=== PATIENT | male | born 1950 | race Caucasian/White ===

== ENCOUNTER 2022-10-04 11:08 | Emergency (ER) | payer MEDICARE, OTHER, SELFPAY ==
[2022-10-04] VITALS (19 sets, daily range): BP systolic 114–150; BP diastolic 65–82; PULSE 77–96; RESP 12–20; TEMP 36.6–37.2; O2SAT 88–100
--- NOTE | ~2022-10-04 | CT_ITS ---
EXAMINATION: CT cervical spine wo con DATE: 10/04/2022 13:04 INDICATION: Neck pain TECHNIQUE: Computed tomography (CT) of the cervical spine was performed without intravenous contrast. The dose-length product (DLP) was 446.28 mGy-cm. Automated exposure control and iterative reconstruc tion technique were employed. COMPARISON: None FINDINGS: Bone alignment is normal. There is no fracture. There is mild to moderate loss of intervert ebral disc space height at C4-5, C5-6, and C6-7. The vertebral body heights are maintained. The odont oid is intact. There is multilevel severe facet and uncovertebral joint osteoarthritis. Prevertebral soft tissues are normal. There is fibrous union of the posterior C1 arch. IMPRESSION: 1. Moderate cervical spondylosis without acute findings. Reviewed, dictated and finalized at location A. [employer]
--- NOTE | ~2022-10-04 | CT_ITS ---
EXAMINATION: CT chest abdomen pelvis wo con DATE: 10/04/2022 13:05 INDICATION: Left-sided chest and abdominal pain after fall TECHNIQUE: Transaxial computed tomographic images of the chest, abdomen, and pelvis were without int ravenous contrast. The dose-length product (DLP) was 1102.94 mGy-cm. Automated exposure control and i terative reconstruction technique were employed. COMPARISON: None FINDINGS: CHEST CT: There are acute minimally displaced posterolateral fractures of the left sixth, seventh, and eighth r ibs. Minimal airspace opacities adjacent to the eighth rib fracture could reflect a small pulmonary c ontusion. There is moderate emphysema. Dependent atelectasis is noted. There are trace pleural effusi ons. No pneumothorax is identified. There is enlargement of the main and central pulmonary arteries, consistent with pulmonary hypertension. Cardiomegaly is noted. There is calcified coronary artery ath erosclerosis. No pathologically enlarged thoracic lymph nodes are identified. ABDOMEN/PELVIS CT: There is a large volume of hemoperitoneum seen in the perisplenic space, the right pericolic gutter, and tracking into the pelvis. Evaluation is limited by the absence of intravenous contrast. The gallb ladder is surgically absent. Within the limitations of noncontrast examination, the liver, spleen, pa ncreas, and adrenal glands are normal. The kidneys are unremarkable. No pathologically enlarged abdom inal or pelvic lymph nodes are identified. There is no free intraperitoneal gas. There is mild gaseou s distention of the ascending colon. There is severe lumbar spondylosis. IMPRESSION: 1. Large volume of hemoperitoneum, site of origin determination limited by the absence of intravenous contrast. Given the left-sided rib fractures and volume of blood in the left upper quadrant, acute s plenic injury is suspected. Further evaluation with contrast-enhanced CT is recommended. These findin gs and recommendations were discussed with Dr. Marcelo Ceron MD in the Emergency Department at 1320 hours on 10/04/2022. Subsequent to that conversation, it was determined that the patient has a c ontrast allergy. The plan communicated to me was for the patient to begin premedication and transfer to a facility for follow-up imaging and definitive treatment. 2. Acute, minimally displaced posterolateral fractures of left sixth, seventh, and eighth ribs. Subtl e adjacent airspace opacity likely reflects mild pulmonary contusion. Reviewed, dictated and finalized at location A. T RELATIONS RECEPTIONIST IMPRESSION: 1. Large volume of hemoperitoneum, site of origin determination limited by the absence of intravenous contrast. Given the left-sided rib fractures and volume of blood in the left upper quadrant, acute splenic injury is suspected. Further evaluation with contrast-enhanced CT is recommended. These findings and recomm endations were discussed with Dr. Marcelo Ceron MD in the Emergency Depar tment at 1320 hours on 10/04/2022. Subsequent to that conversation, it was dete rmined that the patient has a contrast allergy. The plan communicated to me was for the patient to begin premedication and transfer to a facility for follow-u p imaging and definitive treatment. 2. Acute, minimally displaced posterolateral fractures of left sixth, seventh, and eighth ribs. Subtle adjacent airspace opacity likely reflects mild pulmonar y contusion.
--- NOTE | ~2022-10-04 | CT_ITS ---
EXAMINATION: CT brain wo con INDICATION: Headache COMPARISON: None TECHNIQUE: Standard unenhanced head CT. The dose-length product (DLP) was 605.33 mGy-cm. The mA was a djusted according to patient size. Iterative reconstruction technique was employed. FINDINGS: There is no acute intraparenchymal hemorrhage. No evidence of mass lesion. No evidence of a cute infarction. There is mild periventricular and subcortical hypodensity probably related to small vessel ischemic disease. There is mild prominence of the sulci and ventricles related to cerebral atr ophy. Intracranial calcified cerebral atherosclerosis is noted. There are no extra-axial collections. There is no mass effect or midline shift. The orbits and soft tissues are unremarkable. The visualiz ed sinuses and mastoid air cells are well aerated. IMPRESSION: 1. No acute intracranial abnormality. 2. Age related findings. Reviewed, dictated and finalized at location A. PRESSER
[2022-10-04] MEDS: MORPHINE SULFATE (*CRX) 4 MG/ML INJ IV PUSH ×2 (11:53→14:08)
[2022-10-04] MEDS: ONDANSETRON INJ 4 MG/2 ML VIAL IV PUSH (11:53)
[2022-10-04] MEDS: SODIUM CHLORIDE 0.9% IV 1,000 ML 999 ML IV CONT (11:54)
--- NOTE | 2022-10-04 11:55 | ED.FALL ---
HPI - Fall General Chief Complaint: Fall Stated Complaint: weakness\short of breath Time Seen by Provider: 10/04/22 11:17 Source: patient Mode of arrival: EMS Limitations: no limitations History of Present Illness HPI Narrative: patient is a 72-year-old white male, was home Wednesday 4 days ago when he tripped over his Wiener dog Tristan. he was unable to get up from the floor because of pain in his left lateral chest wall. Patient rated his pain as a 7/10. It was worse at home. Three days ago he started vomiting up some black vomit. Planes of pain in his left chest wall and his buttocks where he had been laying. Grandkids broken the house and found the patient and called EMS who brought the patient to the ED. EMS stated his O2 sat on room air was in the 70s to 80s. He was in atrial fib with a rate of 90-100 systolic blood pressure was 140. His his O2 sat came up to normal levels on 4 L of nasal cannula. Patient was covered in feces. He stated he was able to crawl around to get food for the dog. He could not however call for help. His is out of town until after . Said he had a headache but that he always gets those. Denies any neck pain paresthesias or pain or injury to his arms or legs. He is nauseous but denies abdominal pain or back pain. He has not had a cough and he was previously well before he fell. Past medical history: Says he is not on any medications has no medical problems except he is legally blind. Past surgical history: He has had surgeries on his shoulders, right wrist surgery for fracture, cholecystectomy, and appendectomy social history: Patient lives with his who is currently out of town until after . Place fall occurred: home Loss of consciousness: none Context: tripped/slipped Location of injury: chest and pelvis Associated symptoms (after fall): denies, neck pain, numbness, shortness of breath, abdominal pain, hematuria, lightheaded, vertigo and confusion Related Data Allergies Allergy/AdvReac Type Severity Reaction Status Date / Time Echinacea Allergy Intermediate HOT Verified 12/22/16 10:05 ITCHING HIVES meperidine Allergy Intermediate TACHYCARDIA Verified 12/22/16 10:05 oxycodone Allergy Intermediate ITCHING Verified 12/22/16 10:05 RASH HIVES cephalexin Allergy Mild Rash Verified 12/22/16 10:55 alcohol Allergy Unknown Verified 12/22/16 10:05 banana Allergy Unknown Verified 12/16/16 10:37 celery Allergy Unknown Verified 12/16/16 10:37 codeine Allergy Unknown Rash Verified 12/22/16 10:55 cyclobenzaprine Allergy Unknown Verified 12/22/16 10:55 egg Allergy Unknown Verified 12/16/16 10:37 Fish Containing Products Allergy Unknown Verified 12/16/16 10:37 garlic Allergy Unknown Verified 12/16/16 10:37 milk Allergy Unknown Verified 12/22/16 10:55 Milk Containing Products Allergy Unknown Verified 12/16/16 10:37 nut - unspecified Allergy Unknown Verified 12/16/16 10:37 propoxyphene Allergy Unknown Verified 12/22/16 10:55 turkey Allergy Unknown Verified 12/16/16 10:37 wheat Allergy Unknown Verified 12/16/16 10:37 whey Allergy Unknown Verified 12/16/16 10:37 Yeast Allergy Unknown Verified 12/16/16 10:37 tamayo Allergy Unknown Uncoded 11/17/16 19:17 Butter Oil Allergy Unknown Uncoded 12/16/16 10:37 Cantaloupe Allergy Unknown Uncoded 12/16/16 10:37 Chicken Meat Allergy Unknown Uncoded 12/16/16 10:37 hickory flavoring Allergy Unknown Uncoded 11/17/16 19:17 honey dew Allergy Unknown Uncoded 11/17/16 19:17 NK Allergy Unknown Uncoded 04/10/03 12:56 paw paw Allergy Unknown Uncoded 11/17/16 19:17 root beer Allergy Unknown Uncoded 11/17/16 19:17 SKELETALMUSCLE Allergy Unknown Uncoded 11/17/16 19:17 Review of Systems Review of Systems: All systems reviewed & are unremarkable except as noted in HPI and below Constitutional: Constitutional: Reports as per HPI, Denies fatigue, Denies fever(s) and Denies weakness Eyes: Eyes: Reports as per HPI and Denies ch
[2022-10-04 11:56] LABS: Hematocrit 26.9 % (37.0-46.0); Hemoglobin 8.8 g/dL (12.4-15.3); Mean Corpuscular HGB Conc 32.7 g/dL (32.0-36.0); Mean Corpuscular Hemoglobin 31.8 pg (27.0-31.0); Mean Corpuscular Volume 97.1 fL (78.0-102.0); Mean Platelet Volume 11.8 fl (8.7-11.0); Platelet Count Result 189 K/mm3 (150-420); Red Blood Count 2.77 M/mm3 (4.70-6.10); Red Cell Distribution Width 13.2 % (11.6-14.4); White Blood Count 16.7 K/mm3 (4.8-10.8)
[2022-10-04 12:16] LABS: INR 1.1; Partial Thromboplastin Time 21.1 SEC (23.90-30.70); Prothrombin Time 11.9 Seconds (9.50-12.10)
[2022-10-04 12:30] LABS: Alanine Aminotransferase 58 U/L (16-63); Albumin Level 3.7 g/dL (3.4-5.0); Alkaline Phosphatase 69 U/L (46-116); Anion Gap 7 mmol/L (8-16); Aspartate Amino Transferase 100 U/L (15-37); Bilirubin,Total 0.8 mg/dL (0.00-1.00); Blood Urea Nitrogen 67 mg/dL (7-18); Calcium 9.2 mg/dL (8.5-10.1); Carbon Dioxide 32 mmol/L (21-32); Chloride 108 mmol/L (98-108); Creatine Kinase 2339 U/L (39-308); Estimated CRCL calculation 54 ml/min; Estimated Glomerular Filt Rate > 60; Glucose 119 mg/dL (70-99); Magnesium 2.5 mg/dL (1.8-2.4); Osmolality Calculated 324 mOsm/kg (285-295); Potassium 3.9 mmol/L (3.5-5.1); Sodium 147 mmol/L (136-145); Total Protein 7.3 g/dL (6.4-8.2)
[2022-10-04 12:31] LABS: Influenza A QL RT-PCR Negative (Negative); Influenza B QL RT-PCR Negative (Negative); RSV RNA, RT-PCR Negative (Negative); SARS-CoV-2 RNA PCR Negative (Negative); Troponin I 162.8 ng/L (0.00-60.4)
--- NOTE | 2022-10-04 12:39 | ECG_ITS ---
Measurements Intervals [place] Rate: 90 P: 69 [place]: 162 QRS: -28 QRSD: 97 T: 60 QT: 379 QTc: 465 Interpretive Statements SINUS RHYTHM WITH OCCASIONAL VENTRICULAR PREMATURE COMPLEXES BORDERLINE LEFT AXIS DEVIATION [QRS AXIS < -20] NO PREVIOUS ECG AVAILABLE FOR COMPARISON Electronically Signed On 10-04-2022 14:54:11 FULL STACK DEVELOPER by Zeinab Barnes M.D.
--- NOTE | 2022-10-04 12:44 | PC.NURSE ---
pt to xray per stretcher.
[2022-10-04] MEDS: SODIUM CHLORIDE 0.9% IV 1,000 ML 125 ML IV CONT (13:12)
--- NOTE | 2022-10-04 13:13 | PC.NURSE ---
pt return to room, call proctor in reach.
--- NOTE | 2022-10-04 14:44 | PC.NURSE ---
1420 PT LOADED TO EMS COT, NO BLOOD NOTED IN ADULT BRIEF. PT CLEAN AND DRY. PT ALERT AND STABLE AT TIME OF DEPARTURE. FAMILY INFORMED OF ALL TRANSFER INFORMATION NEEDED. PT DEPARTED WITH ALL PERSONAL BELONGINGS.
== END 2022-10-04 14:30 | disposition short-term general hospital (02) ==
PROVIDERS: Emergency Provider Emergency Medicine; PCP Internal Medicine
DX: I21.4 Non-ST elevation (NSTEMI) myocardial infarction (principal); S22.42XA Multiple fractures of ribs, left side, initial encounter for closed fracture; K66.1 Hemoperitoneum; D64.9 Anemia, unspecified; M62.82 Rhabdomyolysis; F17.200 Nicotine dependence, unspecified, uncomplicated; Z20.822 Contact with and (suspected) exposure to COVID-19; W01.0XXA Fall on same level from slipping, tripping and stumbling without subsequent striking against object, initial encounter; Y92.009 Unspecified place in unspecified non-institutional (private) residence as the place of occurrence of the external cause
CPT/HCPCS: 36415; 70450; 71250; 72125; 74176; 80053; 82550; 83735; 84484; 85027; 85610; 85730; 87637; 93005; 96361; 96374; 96375; 96376; 99285; J2270; J2405; J7030

== ENCOUNTER 2022-10-09 14:17 | Inpatient (IN) | payer MEDICARE, OTHER, SELFPAY ==
[2022-10-09 14:20] VITALS: BP 137/71; PULSE 73; RESP 18; TEMP 36.2; O2SAT 97
--- NOTE | 2022-10-09 14:20 | ADMGEN ---
This patient, Donato Serrano, was admitted to 2nd Floor Room 209-1 as a skilled swing bed patient. Patient/family oriented to hospital policies and general routines including ID bracelet, bed and alarms, visiting hours, pain management, procedures, bathroom and other care routines, personal items, smoking policy, room service/diet, and visiting hours. Information on how to activate the Rapid Response Team has been discussed. Patient/Family are encouraged to report perceived risks to care and to ask questions if they do not understand what they are told or what they should do.
[2022-10-09 14:40] VITALS: O2SAT 97
[2022-10-09 14:43] VITALS: BMI 28.9
[2022-10-09] MEDS: ACETAMINOPHEN 325 MG TABLET 650 MG PO (16:48)
[2022-10-09] MEDS: GABAPENTIN 100 MG CAPSULE PO (18:01)
[2022-10-09] MEDS: oxyCODONE HCL (*CRX) 5 MG TAB IR 10 MG PO (18:01)
[2022-10-09] MEDS: MELATONIN 3 MG TABLET PO (20:46)
[2022-10-09] MEDS: guaiFENesin 12 HR 600 MG TABCR PO (20:46)
[2022-10-09] MEDS: METOPROLOL TARTRATE 25 MG TABLET PO (20:47)
[2022-10-09] MEDS: ACETAMINOPHEN 500 MG TABLET 1000 MG PO (20:47)
[2022-10-09 23:44] VITALS: BP 147/75; PULSE 88; RESP 16; TEMP 36.3; O2SAT 92
[2022-10-10] VITALS (7 sets, daily range): BP systolic 130–144; BP diastolic 63–77; PULSE 78–84; RESP 16–18; TEMP 36.2–36.4; O2SAT 94–96
[2022-10-10] MEDS: oxyCODONE HCL (*CRX) 5 MG TAB IR 10 MG PO ×4 (02:01→22:19)
--- NOTE | 2022-10-10 03:02 | PC.NURSE ---
Pt asleep and oxygen in place at this time. No signs of discomfort noted.
--- NOTE | 2022-10-10 05:00 | PC.NURSE ---
Pt asleep and no signs of discomfort noted.
--- NOTE | 2022-10-10 06:05 | PC.NURSE ---
Pt voided 325 ml of medium jerry urine in the urinal. Pt doesnt voice any c/o discomfort.
[2022-10-10] MEDS: LIDOCAINE 5% PATCH 2 PATCH TOPICAL (09:13)
[2022-10-10] MEDS: ATORVASTATIN 10 MG TABLET 20 MG PO (09:14)
[2022-10-10] MEDS: METOPROLOL TARTRATE 25 MG TABLET PO ×2 (09:14→20:05)
[2022-10-10] MEDS: FERROUS SULFATE 324 MG TABLET PO (09:15)
[2022-10-10] MEDS: PANTOPRAZOLE 40 MG TABLET PO (09:15)
[2022-10-10] MEDS: MULTIVITAMINS THERAPEUTIC TAB (*BKC) 1 TABLET PO (09:15)
[2022-10-10] MEDS: GABAPENTIN 100 MG CAPSULE PO ×3 (09:15→17:01)
[2022-10-10] MEDS: guaiFENesin 12 HR 600 MG TABCR PO ×2 (09:15→20:06)
[2022-10-10] MEDS: ACETAMINOPHEN 500 MG TABLET 1000 MG PO ×3 (09:18→20:06)
--- NOTE | 2022-10-10 12:18 | PM.IMHP ---
H&P: HPI History of Present Illness Date/Time: 10/10/22 12:18 Chief Complaint: Rehab, Weakness , fall Narrative: patient presents for rehab [facility] is a 72-year-old post rib fractures splenic laceration status post fall. Event occurred on 09/30 when he tripped over his dog. Patient later tripped again and then laid on his back as he felt short of breath and diaphoretic Cate on the floor for an unknown amount of time until his family found him and was brought to the hospital patient then went to sleep for higher level care there was never loss of consciousness patient was treated was found have a non-STEMI, weakness he has a past medical history major allergies appendectomy, 5 laminectomy lower back cholecystectomy, ERCP x2 implants clips in the right groin from surgery after a scratch from a cat rotation or cough on both shoulders, tonsillectomy. Patient also has according to notes pulmonary contusion. On the right than the left mildly displaced fracture of the left posterior 6th and 8th through 8th rib. GI saw patient while he was outlaying facility patient has been cleared to return so he can start PT and OT for strength Review of Systems Review of Systems: weakness, allergies, swelling feet All systems reviewed & are unremarkable except as noted in HPI and below PMFSH Past Medical History Medical History (Updated 10/11/22 @ 12:36 by Michael Avilez NP) Anemia Malnutrition Rib fracture Splenic laceration Weakness Family History Family History Mother Family history of malignant neoplasm of gastrointestinal tract Family history of malignant neoplasm of breast in first degree relative Other Family history of cardiovascular disease Hypertension Social History Social History Smoking packs per day: 1 Smoking cigarettes per day: 20.0 Years smoked: 40 Smoking pack-years: 40.00 Smoking status: Current every day smoker Tobacco type: cigarettes Alcohol intake: never Substance use: never Lack of Transportation: No Lack of Food: Never True Current Housing: I Have Housing Concerned About Future Housing: No Difficulty Paying Gas/Electric Bills: No Difficulty Paying for Meds: No Currently Unemployed: No Education: High School Diploma/GED Difficulty w/ Childcare or Family Care: No Spiritual care concerns: No Meds Home Medications and Allergies Home Medications Medication Instructions Recorded Confirmed Type acetaminophen 500 mg tablet 1,000 mg PO TID 10/09/22 10/09/22 History atorvastatin 20 mg tablet (Lipitor) 20 mg PO DAILY 10/09/22 10/09/22 History ferrous sulfate 325 mg (65 mg 325 mg PO EVERY OTHER DAY 10/09/22 10/09/22 History iron) tablet gabapentin 100 mg capsule 100 mg PO TID 10/09/22 10/09/22 History guaifenesin 600 mg tablet, 600 mg PO BID 10/09/22 10/09/22 History extended release 12 hr (Mucus Relief ER) ipratropium 0.5 mg-albuterol 3 mg 0.5 - 2.5 ml inhalation Q6H PRN 10/09/22 10/09/22 History (2.5 mg base)/3 mL nebulization Shortness Of Breath Or Wheezing soln lidocaine 5 % topical patch 2 patch topical DAILY 10/09/22 10/09/22 History melatonin 3 mg tablet 1 mg PO QHS 10/09/22 10/09/22 History metoprolol tartrate 25 mg PO BID 10/09/22 10/09/22 History multivitamin 1 tablet PO DAILY 10/09/22 10/09/22 History oxycodone 10 mg tablet 10 mg PO Q4H PRN Pain 10/09/22 10/09/22 History pantoprazole 40 mg tablet,delayed 40 mg PO DAILY 10/09/22 10/09/22 History release (Protonix) polyethylene glycol 3350 17 gram 17 g PO DAILY PRN Constipation 10/09/22 10/09/22 History oral powder packet (Miralax) polyvinyl alcohol 1.4 % eye drops 1 drp EACH EYE Q4H PRN Dry Eyes 10/09/22 10/09/22 History sodium chloride 0.65 % nasal mist 2 spray intranasal DIRECTED PRN 10/09/22 10/09/22 History Dry Nasal Passages Allergies Boris
[2022-10-10 13:39] LABS: Add Urine Microscopic? YES; Appearance Urine Clear (Clear); Bilirubin Urine Negative (Negative); Blood Urine 3+ (Negative); Color Urine Yellow (Yellow); Glucose Urine UA Negative (Negative); Ketones Urine Negative (Negative); Leukocyte Esterase Ur Negative (Negative); Nitrate Urine Positive (Negative); Protein Urine Trace (Negative); Specific Grav Ur <= 1.005 (1.010-1.020); Urobilinogen Urine 0.2 mg/dL (0.2-1.0)
[2022-10-10 13:44] LABS: WBC Urine None seen /hpf (0-3)
[2022-10-10 13:45] LABS: Bacteria Urine 2+ /hpf
--- NOTE | 2022-10-10 18:52 | PC.NURSE ---
1400 here and claims he is more yellow than he has been since he had a gal bladder removed and then when he blockage/trouble with pancreases. john nazario np aware and talks with her.
[2022-10-10] MEDS: CIPROFLOXACIN 500 MG TAB PO (20:05)
[2022-10-10] MEDS: MELATONIN 3 MG TABLET PO (20:05)
[2022-10-11] VITALS (10 sets, daily range): BP systolic 133–144; BP diastolic 63–70; PULSE 76–82; RESP 16–20; TEMP 36–36.5; O2SAT 95–97
[2022-10-11 05:35] LABS: Basophils Absolute Auto 0.03 K/mm3 (0.00-0.10); Basophils Percent Auto 0.3 % (0.0-1.0); Eosinophils Absolute Auto 0.22 K/mm3 (0.02-0.50); Eosinophils Percent Auto 2.2 % (1.0-6.0); Hematocrit 25.4 % (37.0-46.0); Hemoglobin 8.3 g/dL (12.4-15.3); Immature Granulocyte Absolute 0.16 K/mm3 (0.00-0.00); Immature Granulocyte Percent A 1.6 % (0.0-0.0); Lymphocytes Absolute Auto 1.41 K/mm3 (1.10-4.50); Lymphocytes Percent Auto 13.8 % (18.0-42.0); Mean Corpuscular HGB Conc 32.7 g/dL (32.0-36.0); Mean Corpuscular Hemoglobin 31.8 pg (27.0-31.0); Mean Corpuscular Volume 97.3 fL (78.0-102.0); Mean Platelet Volume 10.1 fl (8.7-11.0); Monocytes Absolute Auto 1.24 K/mm3 (0.10-0.90); Monocytes Percent Auto 12.2 % (2.0-11.0); Neutrophils Absolute Auto 7.1 K/mm3 (1.7-7.2); Neutrophils Percent Auto 69.9 % (50.0-70.0); Platelet Count Result 319 K/mm3 (150-420); Red Blood Count 2.61 M/mm3 (4.70-6.10); Red Cell Distribution Width 14.6 % (11.6-14.4); White Blood Count 10.2 K/mm3 (4.8-10.8)
[2022-10-11 05:48] LABS: Alanine Aminotransferase 80 U/L (16-63); Albumin Level 2.1 g/dL (3.4-5.0); Alkaline Phosphatase 79 U/L (46-116); Anion Gap 2 mmol/L (8-16); Aspartate Amino Transferase 125 U/L (15-37); Blood Urea Nitrogen 13 mg/dL (7-18); Calcium 7.4 mg/dL (8.5-10.1); Carbon Dioxide 34 mmol/L (21-32); Chloride 102 mmol/L (98-108); Estimated CRCL calculation 73 ml/min; Estimated Glomerular Filt Rate > 60; Glucose 108 mg/dL (70-99); Osmolality Calculated 287 mOsm/kg (285-295); Potassium 2.9 mmol/L (3.5-5.1); Sodium 138 mmol/L (136-145); Total Protein 5.6 g/dL (6.4-8.2)
[2022-10-11] MEDS: oxyCODONE HCL (*CRX) 5 MG TAB IR 10 MG PO (05:58)
--- NOTE | 2022-10-11 06:52 | PC.NURSE ---
report to LOLITA mendieta. no questions or concerns.
[2022-10-11] MEDS: MULTIVITAMINS THERAPEUTIC TAB (*BKC) 1 TABLET PO (09:52)
[2022-10-11] MEDS: CIPROFLOXACIN 500 MG TAB PO ×2 (09:52→20:15)
[2022-10-11] MEDS: ATORVASTATIN 10 MG TABLET 20 MG PO (09:52)
[2022-10-11] MEDS: PANTOPRAZOLE 40 MG TABLET PO (09:52)
[2022-10-11] MEDS: guaiFENesin 12 HR 600 MG TABCR PO ×2 (09:52→20:15)
[2022-10-11] MEDS: METOPROLOL TARTRATE 25 MG TABLET PO ×2 (09:52→20:15)
[2022-10-11] MEDS: LIDOCAINE 5% PATCH 2 PATCH TOPICAL (09:52)
[2022-10-11] MEDS: GABAPENTIN 100 MG CAPSULE PO ×3 (09:52→16:53)
[2022-10-11] MEDS: ACETAMINOPHEN 500 MG TABLET 1000 MG PO ×2 (09:56→12:53)
[2022-10-11] MEDS: POTASSIUM CHLORIDE 20 MEQ TABLET 40 MEQ PO ×2 (10:26→16:53)
[2022-10-11] MEDS: KETOROLAC 10 MG TABLET PO (14:38)
[2022-10-11] MEDS: MELATONIN 3 MG TABLET PO (20:15)
[2022-10-11] MEDS: oxyCODONE HCL (*CRX) 5 MG TAB IR PO (20:16)
[2022-10-11] MEDS: IPRATROPIUM 0.5 MG/ALBUTEROL SULFATE 2.5 MG AMPUL.NEB 3 ML INHALATION (20:46)
[2022-10-12] MEDS: oxyCODONE HCL (*CRX) 5 MG TAB IR PO ×3 (03:43→19:12)
[2022-10-12 08:00] VITALS: BP 134/66; PULSE 105; RESP 17; TEMP 36.2; O2SAT 93
[2022-10-12] MEDS: LIDOCAINE 5% PATCH 2 PATCH TOPICAL (09:05)
[2022-10-12 09:06] VITALS: PULSE 105
[2022-10-12] MEDS: ATORVASTATIN 10 MG TABLET 20 MG PO (09:06)
[2022-10-12] MEDS: POTASSIUM CHLORIDE 20 MEQ TABLET 40 MEQ PO ×2 (09:06→16:35)
[2022-10-12] MEDS: MULTIVITAMINS THERAPEUTIC TAB (*BKC) 1 TABLET PO (09:06)
[2022-10-12] MEDS: guaiFENesin 12 HR 600 MG TABCR PO ×2 (09:06→20:58)
[2022-10-12] MEDS: KETOROLAC 10 MG TABLET PO ×3 (09:06→22:39)
[2022-10-12] MEDS: METOPROLOL TARTRATE 25 MG TABLET PO ×2 (09:06→20:46)
[2022-10-12] MEDS: CIPROFLOXACIN 500 MG TAB PO ×2 (09:07→20:46)
[2022-10-12] MEDS: FERROUS SULFATE 324 MG TABLET PO (09:07)
[2022-10-12] MEDS: PANTOPRAZOLE 40 MG TABLET PO (09:07)
[2022-10-12] MEDS: GABAPENTIN 100 MG CAPSULE PO ×3 (09:07→16:35)
[2022-10-12 16:30] VITALS: BP 119/65; PULSE 87; RESP 18; TEMP 36.6; O2SAT 92
[2022-10-12 20:00] VITALS: PULSE 87; RESP 18; O2SAT 92
[2022-10-12 20:46] VITALS: PULSE 86
[2022-10-12] MEDS: MELATONIN 3 MG TABLET PO (20:46)
[2022-10-13] VITALS (8 sets, daily range): BP systolic 125–135; BP diastolic 60–81; PULSE 77–86; RESP 17–20; TEMP 36.4–36.6; O2SAT 93–97
[2022-10-13] MEDS: oxyCODONE HCL (*CRX) 5 MG TAB IR PO ×4 (06:03→21:05)
[2022-10-13] MEDS: POTASSIUM CHLORIDE 20 MEQ TABLET 40 MEQ PO ×2 (07:57→16:45)
[2022-10-13] MEDS: ATORVASTATIN 10 MG TABLET 20 MG PO (08:36)
[2022-10-13] MEDS: GABAPENTIN 100 MG CAPSULE PO ×3 (08:36→16:45)
[2022-10-13] MEDS: MULTIVITAMINS THERAPEUTIC TAB (*BKC) 1 TABLET PO (08:36)
[2022-10-13] MEDS: CIPROFLOXACIN 500 MG TAB PO ×2 (08:36→20:13)
[2022-10-13] MEDS: PANTOPRAZOLE 40 MG TABLET PO (08:37)
[2022-10-13] MEDS: guaiFENesin 12 HR 600 MG TABCR PO ×2 (08:37→20:13)
[2022-10-13] MEDS: METOPROLOL TARTRATE 25 MG TABLET PO ×2 (08:37→20:16)
[2022-10-13] MEDS: LIDOCAINE 5% PATCH 2 PATCH TOPICAL (08:37)
[2022-10-13] MEDS: KETOROLAC 10 MG TABLET PO ×2 (08:48→20:11)
--- NOTE | 2022-10-13 10:05 | PC.NURSE ---
Pt assisted c soapy sponge bath, ersting in chair, states he is tired from walking halls c PT. Pt repositioned in chair, mepilex foam dressing in place, call proctor at pt side. Oxycodone given per pt request for increased pain in his ribs from walking.
--- NOTE | 2022-10-13 10:38 | PC.NURSE ---
Pt sitting in chair, feet elevated, pt given a rolled towel and instructed on splinting Lt rib cage area when coughing. Pt reports this technique helps c pain. Call proctor at pt side.
--- NOTE | 2022-10-13 12:32 | PC.NURSE ---
Patient requested neb treatment. RT notified
[2022-10-13] MEDS: IPRATROPIUM 0.5 MG/ALBUTEROL SULFATE 2.5 MG AMPUL.NEB 3 ML INHALATION (12:46)
[2022-10-13] MEDS: MELATONIN 3 MG TABLET PO (20:12)
--- NOTE | 2022-10-13 21:26 | PC.NURSE ---
Pt assisted w/ambulating to bathroom from chair to the bathroom via walker, gait belt, and standby assist. Pt had a large loose, but mostly liquid bm that was brown in color. Pt assisted w/cleaning his behind per his request and then barrier spray applied to pt's coccyx. Pt then brought to bed, and was adjusted for comfort. Pt ambulated very well and required very little assistance w/balance. Dentures removed and placed in a cup for the night. Call light placed w/in reach. Side railsx3 and bed in lowest position for pt safety.
[2022-10-14 08:00] VITALS: BP 112/57; PULSE 94; RESP 19; TEMP 36.4; O2SAT 94
[2022-10-14 08:31] VITALS: PULSE 94
[2022-10-14] MEDS: LIDOCAINE 5% PATCH 2 PATCH TOPICAL (08:31)
[2022-10-14] MEDS: PANTOPRAZOLE 40 MG TABLET PO (08:31)
[2022-10-14] MEDS: ATORVASTATIN 10 MG TABLET 20 MG PO (08:31)
[2022-10-14] MEDS: guaiFENesin 12 HR 600 MG TABCR PO ×2 (08:31→20:38)
[2022-10-14] MEDS: METOPROLOL TARTRATE 25 MG TABLET PO ×2 (08:31→20:39)
[2022-10-14] MEDS: MULTIVITAMINS THERAPEUTIC TAB (*BKC) 1 TABLET PO (08:31)
[2022-10-14] MEDS: POTASSIUM CHLORIDE 20 MEQ TABLET 40 MEQ PO ×2 (08:31→17:26)
[2022-10-14] MEDS: CIPROFLOXACIN 500 MG TAB PO ×2 (08:32→20:38)
[2022-10-14] MEDS: GABAPENTIN 100 MG CAPSULE PO ×3 (08:32→17:26)
[2022-10-14] MEDS: FERROUS SULFATE 324 MG TABLET PO (08:32)
[2022-10-14] MEDS: KETOROLAC 10 MG TABLET PO ×2 (08:32→18:39)
[2022-10-14] MEDS: oxyCODONE HCL (*CRX) 5 MG TAB IR PO ×2 (12:33→20:38)
[2022-10-14 16:00] VITALS: BP 122/62; PULSE 88; RESP 17; TEMP 36.6; O2SAT 93
--- NOTE | 2022-10-14 18:29 | PC.NURSE ---
Patient assisted from bathroom to bed. HOB and knees elevated per patient request. Urinal emptied. Call light and belongings within reach.
[2022-10-14] MEDS: MELATONIN 3 MG TABLET PO (20:38)
[2022-10-14] MEDS: traZODone HCL 50 MG TABLET PO (20:38)
[2022-10-14 20:39] VITALS: PULSE 73
[2022-10-14 23:07] VITALS: BP 135/69; PULSE 73; RESP 15; TEMP 36.4; O2SAT 95
[2022-10-15] MEDS: oxyCODONE HCL (*CRX) 5 MG TAB IR PO ×3 (05:47→17:47)
[2022-10-15 07:34] VITALS: BP 128/65; PULSE 75; RESP 16; TEMP 36.6; O2SAT 92
[2022-10-15] MEDS: LIDOCAINE 5% PATCH 2 PATCH TOPICAL (08:33)
[2022-10-15] MEDS: MULTIVITAMINS THERAPEUTIC TAB (*BKC) 1 TABLET PO (08:34)
[2022-10-15 08:35] VITALS: PULSE 75
[2022-10-15] MEDS: POTASSIUM CHLORIDE 20 MEQ TABLET 40 MEQ PO ×2 (08:35→17:00)
[2022-10-15] MEDS: guaiFENesin 12 HR 600 MG TABCR PO ×2 (08:35→21:22)
[2022-10-15] MEDS: GABAPENTIN 100 MG CAPSULE PO ×3 (08:35→17:00)
[2022-10-15] MEDS: METOPROLOL TARTRATE 25 MG TABLET PO ×2 (08:35→21:21)
[2022-10-15] MEDS: ATORVASTATIN 10 MG TABLET 20 MG PO (08:36)
[2022-10-15] MEDS: KETOROLAC 10 MG TABLET PO ×2 (08:36→21:21)
[2022-10-15] MEDS: CIPROFLOXACIN 500 MG TAB PO ×2 (08:38→21:22)
[2022-10-15] MEDS: PANTOPRAZOLE 40 MG TABLET PO (08:38)
[2022-10-15 16:00] VITALS: BP 147/62; PULSE 78; RESP 16; TEMP 36.5; O2SAT 96
[2022-10-15 20:00] VITALS: PULSE 78; RESP 16; O2SAT 96
[2022-10-15 21:21] VITALS: PULSE 78
[2022-10-15] MEDS: MELATONIN 3 MG TABLET PO (21:22)
[2022-10-15] MEDS: traZODone HCL 50 MG TABLET PO (21:22)
[2022-10-15 21:26] LABS: Glucose Point of Care 95 mg/dl (65-105)
[2022-10-15 23:50] VITALS: BP 131/68; PULSE 78; RESP 18; TEMP 36.5; O2SAT 96
[2022-10-16 07:55] VITALS: BP 123/59; PULSE 76; RESP 20; TEMP 36.3; O2SAT 93
[2022-10-16 07:56] VITALS: RESP 20; O2SAT 93
[2022-10-16] MEDS: POTASSIUM CHLORIDE 20 MEQ TABLET 40 MEQ PO ×2 (08:04→15:56)
[2022-10-16] MEDS: ATORVASTATIN 10 MG TABLET 20 MG PO (08:04)
[2022-10-16] MEDS: PANTOPRAZOLE 40 MG TABLET PO (08:04)
[2022-10-16] MEDS: CIPROFLOXACIN 500 MG TAB PO (08:04)
[2022-10-16 08:05] VITALS: PULSE 83
[2022-10-16] MEDS: guaiFENesin 12 HR 600 MG TABCR PO (08:05)
[2022-10-16] MEDS: GABAPENTIN 100 MG CAPSULE PO ×3 (08:05→15:56)
[2022-10-16] MEDS: METOPROLOL TARTRATE 25 MG TABLET PO (08:05)
[2022-10-16] MEDS: FERROUS SULFATE 324 MG TABLET PO (08:05)
[2022-10-16] MEDS: MULTIVITAMINS THERAPEUTIC TAB (*BKC) 1 TABLET PO (08:05)
[2022-10-16] MEDS: LIDOCAINE 5% PATCH 2 PATCH TOPICAL (08:06)
[2022-10-16] MEDS: oxyCODONE HCL (*CRX) 5 MG TAB IR PO (09:09)
--- NOTE | 2022-10-16 12:57 | PM.DS ---
DS: Admitting Diagnosis Discharge Date 10/16/2022 Admitting Diagnosis rehab, weakness, fall DS: Discharge Diagnosis Discharge Diagnosis (1) Non-STEMI (non-ST elevated myocardial infarction): Code(s): I21.4 - Non-ST elevation (NSTEMI) myocardial infarction Status: Acute Assessment and Plan: Resolved at [facility] no pericardial effusion (2) Splenic laceration: Code(s): S36.039A - Unspecified laceration of spleen, initial encounter Status: Acute Assessment and Plan: resolved at [facility] and he has been cleared (3) Rib fracture: Code(s): S22.39XA - Fracture of one rib, unspecified side, initial encounter for closed fracture Status: Acute Assessment and Plan: Pain control prn medication healing (4) Malnutrition: Code(s): E46 - Unspecified protein-calorie malnutrition Status: Acute Assessment and Plan: Uspecified Caloric malnutriiton protein major allergies (5) Weakness: Code(s): R53.1 - Weakness Status: Acute Assessment and Plan: PT/OT Evaluate and treat fall precaution (6) Anemia: Code(s): D64.9 - Anemia, unspecified Status: Acute Assessment and Plan: will monitor transfuse for hgb below 7 DS: Summary Hospital Course Hospital Course: patient presents for rehab from [facility] is a 72-year-old post rib fractures splenic laceration status post fall.? Event occurred on 09/30 when he tripped over his dog.? Patient later tripped again and then laid on his back as he felt short of breath and diaphoretic Cate on the floor for an unknown amount of time until his family found him and was brought to the hospital . patient was transferred to higher level care there was never loss of consciousness patient was treated was found have a non-STEMI, weakness he has a past medical history major allergies appendectomy, 5 laminectomy lower back cholecystectomy, ERCP x2 implants clips in the right groin from surgery tonsillectomy.? Patient also has according to notes pulmonary contusion.? On the right than the left mildly displaced fracture of the left posterior 6th and 8th through 8th rib.? GI was consulted while patient was hospitalized at the [facility] facility . patient is being discharged home with self-care patient able to ambulate 140 ft with standby assist. Discharge instructions reviewed with patient, as well as provided in writing per nursing staff. The instructions also include specific and strict return/GO TO THE ER as well as f/u information. All questions have been answered, and the patient and/or family deny any further questions with discharge and discharge plan. Time Spent with Patient Time attestation: Total time spent providing and/or coordinating discharge services: Exam Narrative: GENERAL pale -appearing, well-nourished, and in no acute distress. HEAD:Normocephalic, atraumatic. EYES: PERRLA ENT: Nares clear, epistaxis. Mucous membranes moist. CHEST: Clear to auscultation. No respiratory distress. HEART: Regular rate and rhythm. Normal peripheral pulses. ABDOMEN: Soft, nontender, nondistended, normal active bowel sounds. EXTREMITIES: Normal range of motion. 2+ edema. SKIN: Warm, dry, no rash. NEURO: No focal deficits. Alert and oriented x3. DS: Data Data Completed and Pending Labs on day of discharge: Labs from last 24 hours 10/15/22 21:21 POC Capillary Glucose 95 Discharge Plan Discharge Attending physician on discharge: Roverto Leo Discharging Clinician: Duncan Tanner Anticipated Discharge Date/Time: 10/16/22 12:46 Patient Disposition: Home, Self-Care Activity: as tolerated Diet: heart healthy Discharge Instructions: Follow-up with provided within 1 week. Take all medications as ordered. If condition worsens contact provider. You will need to follow up with your primary care physician concerning your lower leg
[2022-10-16] MEDS: KETOROLAC 10 MG TABLET PO (13:30)
[2022-10-16 16:00] VITALS: BP 124/56; PULSE 66; RESP 16; TEMP 36.2; O2SAT 98
--- NOTE | 2022-10-16 16:04 | PC.NURSE ---
is here to pick pt up, she wants him to eat first, requests dinner tray be brought early, dietary notified and will bring tray at 1630, pt and given d/c instructions and hard copy of lasix/tramadol scripts, will carry belongings down to car
--- NOTE | 2022-10-22 10:47 | PC.NURSE ---
Unable to contact for discharge call back.
== END 2022-10-16 16:50 | disposition home or self-care (01) | DRG 947 ==
PROVIDERS: Nurse Practitioner Family; Admitting Provider Internal Medicine; PCP Internal Medicine; Visit Provider Internal Medicine
DX: R53.1 Weakness (principal); I21.4 Non-ST elevation (NSTEMI) myocardial infarction; E46 Unspecified protein-calorie malnutrition; S36.039D Unspecified laceration of spleen, subsequent encounter; S22.42XD Multiple fractures of ribs, left side, subsequent encounter for fracture with routine healing; S27.321D Contusion of lung, unilateral, subsequent encounter; W01.0XXD Fall on same level from slipping, tripping and stumbling without subsequent striking against object, subsequent encounter; D64.9 Anemia, unspecified; F17.210 Nicotine dependence, cigarettes, uncomplicated; Z90.49 Acquired absence of other specified parts of digestive tract
CPT/HCPCS: 36415; 80053; 81001; 82948; 85025; 94640; 97110; 97161; 97165; 97530; 97535; A9270

== ENCOUNTER 2022-10-25 18:44 | Emergency (ER) | payer MEDICARE, OTHER, SELFPAY ==
--- NOTE | ~2022-10-25 | CT_ITS ---
EXAMINATION: CT abdomen pelvis w con DATE: 10/25/2022 20:39 INDICATION: LOWER ABD PAIN WITH LIQUID STOOL X 3 WEEKS. TECHNIQUE: Computed tomography (CT) of the abdomen and pelvis was performed with 100 mL Omnipaque-350 intravenous contrast. Automated exposure control and iterative reconstruction technique were employe d. The dose-length product was 655.10 mGy-cm. COMPARISON: 10/04/2022. FINDINGS: Lower thorax: Calcified pulmonary granulomas. Coronary artery calcification. Small left pleural effus ion. Liver: Normal. Biliary/Gallbladder: Gallbladder is absent. Pneumobilia. Pancreas: Dilated pancreatic duct with ductal gas. Spleen: Subacute splenic laceration. Interval resolution of the perisplenic blood. Adrenals:No mass. Kidneys: No mass, stone, or hydronephrosis. GI tract: No small or large bowel dilation. Long segment of severe small bowel wall edema in the deep pelvis with surrounding inflammatory change. Suggestion of wall breakdown (image [id number]). Adjacent 4.6 x 3.4 x 4.4 cm fluid collection containing hyperdense layering material, closely applied to the e dematous loop of bowel and the distal sigmoid. Appendix not visualized. Diverticulosis. Mesentery/Peritoneum: Diffuse mesenteric edema. Retroperitoneum: No mass. Atherosclerotic abdominal aortic and/or arterial calcifications. Pelvis: Inflammatory change of the bladder wall likely secondary to the adjacent small bowel process. Soft Tissues: Body wall edema. Small uncomplicated helical and bilateral inguinal fat-containing andrea ias. Bones: No acute osseous finding. Multiple subacute rib fractures. IMPRESSION: 1. Long segment severe small bowel wall edema involving a loop of small bowel in the deep pelvis, whi ch may be infectious, inflammatory, or ischemic, with findings concerning for wall breakdown and an a djacent 4.6 cm abscess in the deep pelvis. 2. Small left pleural effusion. 3. Additional chronic and incidental findings detailed above. Reviewed, dictated and finalized at location K. F OF FIELD OPERATIONS IMPRESSION: 1. Long segment severe small bowel wall edema involving a loop of small bowel i n the deep pelvis, which may be infectious, inflammatory, or ischemic, with fin dings concerning for wall breakdown and an adjacent 4.6 cm abscess in the deep pelvis. 2. Small left pleural effusion. 3. Additional chronic and incidental findings detailed above.
[2022-10-25 18:52] VITALS: BP 145/71; PULSE 82; RESP 18; TEMP 36.7; O2SAT 97
--- NOTE | 2022-10-25 19:03 | ED.ABDPAIN ---
HPI - Abdominal Pain General Chief Complaint: Abdominal Pain Stated Complaint: pain lower belly Time Seen by Provider: 10/25/22 18:59 History of Present Illness HPI narrative: 72-year-old male patient with status post the left rib fracture, spleen laceration, and a non-STEMI diagnosed on 10/04/2022 went through a long inpatient hospitalization and eventual rehab up until 10 days ago when he returned home, returns this evening with complaints of lower abdominal pain and liquid stools. He has had pain for several days and states that he feels full and does not feel like he is going enough. No blood has been noted in the stools. The patient was on oxycodone up until 10 days ago and since his discharge home he has been taking Toradol. He denies any associated nausea or vomiting. He states that he has been passing gas frequently. Denies any fever or chills. Denies any difficulty breathing. Denies any chest pain. Per the patient is trying to do some physical therapy at home. Apparently he does have a history of diverticulosis Related Data Home Medications Medication Instructions Recorded Confirmed acetaminophen 500 mg tablet 1,000 mg PO TID 10/09/22 10/25/22 atorvastatin 20 mg tablet (Lipitor) 20 mg PO DAILY 10/09/22 10/25/22 ferrous sulfate 325 mg (65 mg 325 mg PO EVERY OTHER DAY 10/09/22 10/25/22 iron) tablet gabapentin 100 mg capsule 100 mg PO TID 10/09/22 10/25/22 guaifenesin 600 mg tablet, 600 mg PO BID 10/09/22 10/25/22 extended release 12 hr (Mucus Relief ER) ipratropium 0.5 mg-albuterol 3 mg 0.5 - 2.5 ml inhalation Q6H PRN 10/09/22 10/25/22 (2.5 mg base)/3 mL nebulization Shortness Of Breath Or Wheezing soln lidocaine 5 % topical patch 2 patch topical DAILY 10/09/22 10/25/22 melatonin 3 mg tablet 1 mg PO QHS 10/09/22 10/25/22 metoprolol tartrate 25 mg PO BID 10/09/22 10/25/22 multivitamin 1 tablet PO DAILY 10/09/22 10/25/22 oxycodone 10 mg tablet 10 mg PO Q4H PRN Pain 10/09/22 10/25/22 pantoprazole 40 mg tablet,delayed 40 mg PO DAILY 10/09/22 10/25/22 release (Protonix) polyethylene glycol 3350 17 gram 17 g PO DAILY PRN Constipation 10/09/22 10/25/22 oral powder packet (Miralax) polyvinyl alcohol 1.4 % eye drops 1 drp EACH EYE Q4H PRN Dry Eyes 10/09/22 10/25/22 sodium chloride 0.65 % nasal mist 2 spray intranasal DIRECTED PRN 10/09/22 10/25/22 Dry Nasal Passages Allergies Allergy/AdvReac Type Severity Reaction Status Date / Time Echinacea Allergy Intermediate HOT Verified 10/25/22 19:03 ITCHING HIVES meperidine Allergy Intermediate TACHYCARDIA Verified 10/25/22 19:03 oxycodone Allergy Intermediate ITCHING Verified 10/25/22 19:03 RASH HIVES cephalexin Allergy Mild Rash Verified 10/25/22 19:03 alcohol Allergy Unknown Unknown Verified 10/25/22 19:03 banana Allergy Unknown Unknown Verified 10/25/22 19:03 celery Allergy Unknown Unknown Verified 10/25/22 19:03 codeine Allergy Unknown Rash Verified 10/25/22 19:03 cyclobenzaprine Allergy Unknown Unknown Verified 10/25/22 19:03 egg Allergy Unknown Unknown Verified 10/25/22 19:03 Fish Containing Products Allergy Unknown Unknown Verified 10/25/22 19:03 garlic Allergy Unknown Unknown Verified 10/25/22 19:03 milk Allergy Unknown Unknown Verified 10/25/22 19:03 Milk Containing Products Allergy Unknown Unknown Verified 10/25/22 19:03 nut - unspecified Allergy Unknown Unknown Verified 10/25/22 19:03 propoxyphene Allergy Unknown Unknown Verified 10/25/22 19:03 turkey Allergy Unknown Unknown Verified 10/25/22 19:03 wheat Allergy Unknown Unknown Verified 10/25/22 19:03 whey Allergy Unknown Unknown Verified 10/25/22 19:03 Yeast Allergy Unknown Unknown Verified 10/25/22 19:03 tamayo Allergy Unknown Unknown Uncoded 10/25/22 19:03 Butter Oil Allergy Unknown Unknown Uncoded 10/25/22 19:03 Cantaloupe Allergy Unknown Unknown Uncoded 10/25/22 19:03 Chicken Meat Allergy Unknown Unknown Uncoded 10/25/22 19:03 hickory flavoring Allergy Unknown Unknown Uncoded
--- NOTE | 2022-10-25 19:05 | PC.NURSE ---
Shift report given to Holly.
--- NOTE | 2022-10-25 19:05 | PC.NURSE ---
Pt states he has bowel movements but is all liquid and mucous, states not having enough and having trouble being regular, causing abdominal pain.
--- NOTE | 2022-10-25 19:19 | ECG_ITS ---
Measurements Intervals [place] Rate: 69 P: 48 WI: 176 QRS: -24 QRSD: 84 T: 31 QT: 394 QTc: 424 Interpretive Statements SINUS RHYTHM BASELINE WANDER- II, III, V4-V5 NORMAL ECG COMPARED TO ECG 10/04/2022 12:39:58 NO SIGNIFICANT CHANGES Electronically Signed On 10-25-2022 20:46:47 [employer]GER by David Adams D.O.
[2022-10-25 20:06] LABS: Basophils Absolute Auto 0.04 K/mm3 (0.00-0.10); Basophils Percent Auto 0.5 % (0.0-1.0); Eosinophils Percent Auto 2.6 % (1.0-6.0); Hematocrit 29.4 % (37.0-46.0); Hemoglobin 9.4 g/dL (12.4-15.3); Immature Granulocyte Absolute 0.04 K/mm3 (0.00-0.00); Immature Granulocyte Percent A 0.5 % (0.0-0.0); Lymphocytes Percent Auto 16.8 % (18.0-42.0); Mean Corpuscular Hemoglobin 31.9 pg (27.0-31.0); Mean Corpuscular Volume 99.7 fL (78.0-102.0); Mean Platelet Volume 9.3 fl (8.7-11.0); Monocytes Absolute Auto 0.78 K/mm3 (0.10-0.90); Monocytes Percent Auto 10.1 % (2.0-11.0); Neutrophils Absolute Auto 5.4 K/mm3 (1.7-7.2); Neutrophils Percent Auto 69.5 % (50.0-70.0); Platelet Count Result 391 K/mm3 (150-420); Red Blood Count 2.95 M/mm3 (4.70-6.10); Red Cell Distribution Width 14.6 % (11.6-14.4); White Blood Count 7.7 K/mm3 (4.8-10.8)
[2022-10-25 20:22] LABS: Alanine Aminotransferase 21 U/L (16-63); Albumin Level 2.6 g/dL (3.4-5.0); Alkaline Phosphatase 77 U/L (46-116); Anion Gap 4 mmol/L (8-16); Aspartate Amino Transferase 17 U/L (15-37); Bilirubin,Total 0.4 mg/dL (0.00-1.00); Blood Urea Nitrogen 11 mg/dL (7-18); Calcium 8.1 mg/dL (8.5-10.1); Carbon Dioxide 30 mmol/L (21-32); Chloride 104 mmol/L (98-108); Estimated CRCL calculation 62 ml/min; Estimated Glomerular Filt Rate > 60; Glucose 93 mg/dL (70-99); Lipase 207 U/L (16-77); Osmolality Calculated 285 mOsm/kg (285-295); Potassium 3.7 mmol/L (3.5-5.1); Sodium 138 mmol/L (136-145); Total Protein 6.4 g/dL (6.4-8.2); Troponin I 27.1 ng/L (0.00-60.4)
--- NOTE | 2022-10-25 21:00 | PC.NURSE ---
Pt resting, VSS, ERP in to discuss POC and need for transfer. Pt wanting to transfer to [place], see provider call communication log. Pt wanting meds for pain, orders obtained.
[2022-10-25] MEDS: ONDANSETRON INJ 4 MG/2 ML VIAL IV PUSH (21:36)
[2022-10-25] MEDS: SODIUM CHLORIDE 0.9% IV 1,000 ML 250 ML IV CONT (21:37)
[2022-10-25] MEDS: MORPHINE SULFATE (*CRX) 2 MG/ML INJ IV PUSH ×2 (21:37→22:52)
[2022-10-25 21:43] VITALS: O2SAT 94
[2022-10-25 21:45] VITALS: O2SAT 94
[2022-10-25 21:45] LABS: Occult Blood Negative (Negative)
[2022-10-25 21:46] VITALS: BP 147/73; PULSE 73; RESP 20; TEMP 36.6; O2SAT 95
[2022-10-25 21:50] LABS: Add Urine Microscopic? NO; Appearance Urine Clear (Clear); Bilirubin Urine Negative (Negative); Blood Urine Negative (Negative); Color Urine Light Yellow (Yellow); Glucose Urine UA Negative (Negative); Ketones Urine Negative (Negative); Leukocyte Esterase Ur Negative LEU/UL (Negative); Nitrate Urine Negative (Negative); Protein Urine Negative (Negative); Specific Grav Ur 1.015 (1.010-1.020); Urobilinogen Urine 0.2 mg/dL (0.2-1.0)
--- NOTE | 2022-10-25 22:11 | PC.NURSE ---
Paperwork signed for pt transfer. Call placed to [facility] to give report for pt transfer.
[2022-10-25 22:20] VITALS: BP 140/69; PULSE 74; RESP 18; TEMP 36.6; O2SAT 95
--- NOTE | 2022-10-25 22:27 | PC.NURSE ---
Call paged to [facility] for pt transfer. IVF NS infusing per transfer. VSS, pt resting, stable condition.
--- NOTE | 2022-10-25 22:58 | PC.NURSE ---
Report given to [facility], pt loaded for transfer s difficulty, remains stable, VSS.
--- NOTE | 2022-10-26 13:10 | PC.NURSE ---
final report for c. difficile stool reviewed. results negative. no action required
--- NOTE | 2022-10-29 13:40 | PC.NURSE ---
SHIGA TOXINS FINAL RESULT: NOT DETECTED SALMONELLA/SHIGELLA CULTURE FINAL RESULT: NO SALMONELLA OR SHIGELLA ISOLATED CAMPYLOBACTER EIA FINAL RESULT: CAMPYLOBACTER SPP.AG,EIA NOT DETECTED NO FURTHER ACTION NEEDED.
== END 2022-10-25 22:59 | disposition short-term general hospital (02) ==
PROVIDERS: Emergency Provider Emergency Medicine; PCP Internal Medicine
DX: K55.019 Acute (reversible) ischemia of small intestine, extent unspecified (principal); D64.9 Anemia, unspecified; I25.2 Old myocardial infarction; F17.210 Nicotine dependence, cigarettes, uncomplicated; Z79.891 Long term (current) use of opiate analgesic; Z79.51 Long term (current) use of inhaled steroids
CPT/HCPCS: 36415; 74177; 80053; 81003; 83690; 84484; 85025; 87045; 87324; 87427; 93005; 96361; 96365; 96375; 96376; 99285; J2270; J2405; J2543; J7030; Q9967

== ENCOUNTER 2023-09-16 10:05 | Outpatient (CLI) | payer MEDICARE, OTHER, SELFPAY ==
--- NOTE | ~2023-09-16 | CT_ITS ---
CT Scan of the Chest without Contrast: Clinical Indication: Lung cancer screening, smoking history Technique: Contiguous sections were acquired throughout the chest without intravenous contrast. Dose reduction technique was used on this scan by utilizing automated exposure control and iterative recon struction technique. The dose-length product (DLP) was 138.34 mGy-cm. COMPARISON: 10/04/2022 Findings: There is no evidence of any significant mediastinal, hilar or axillary lymphadenopathy. The mediastin al soft tissues appear normal. There is no evidence of pleural or pericardial effusion. There is mild emphysema. There are several scattered subcentimeter pleural-based nodules. Several grisel cified granulomas are present. Stable 4 mm pleural-based nodule at the left upper lobe. Images through the upper abdomen reveal extensive pneumobilia and cholecystectomy clips. Impression: Lung RADS 2: Benign appearance. 12 month follow-up screening CT advised. Reviewed, dictated and finalized at [facility]. N MAN Impression: Lung RADS 2: Benign appearance. 12 month follow-up screening CT advised.
== END 2023-09-16 10:06 | disposition home or self-care (01) ==
LOC: CHSIMG 10:06
PROVIDERS: PCP Internal Medicine; Visit Provider Internal Medicine
DX: Z12.2 Encounter for screening for malignant neoplasm of respiratory organs (principal); Z87.891 Personal history of nicotine dependence
CPT/HCPCS: 71271

== ENCOUNTER 2024-11-09 14:05 | Outpatient (CLI) | payer MEDICARE, OTHER, SELFPAY ==
--- NOTE | ~2024-11-09 | XR_ITS ---
HISTORY: BL HAND PAIN COMPARISON: None TECHNIQUE: 3 views of the bilateral hands were performed. FINDINGS: No acute fracture is identified. Gullwing deformity is identified within the middle interphalangeal joints bilaterally. No periarticular osteopenia is appreciated. Significant degenerative disease is identified within the first carpometacarpal joint space bilateral ly. The carpal arcs are intact. Bone mineralization is age-appropriate No significant soft tissue swelling. No radiopaque foreign body is identified. 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 Reviewed, dictated and finalized at location A. 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
--- OUTSIDE RECORDS SUMMARY | 2024-11-10 05:34 | XMS_ITS | Referral Summary ---
Author Organization [facility] Address [address] [place] [address] Care Team Providers Care Soft Boarder Name Role Phone Fahad Desai MD Primary Care Provider [phone] Source Comments [facility],non-owned Affiliates and Associated Physician Practices is amultiple site organization consisting of ambulatory clinics and hospital sitesin [place], [place]. This disclosure is being madepursuant to the Care Everywhere program and may not contain all information available regarding this patient. Last updated 18.[facility] [employer] Allergies Active Allergy Reactions Criticality Noted Date Comments Albumin Anaphylaxis High 10/05/2022 Felipe Flavor Anaphylaxis High 04/09/2019 Banana Anaphylaxis High 10/05/2022 Cantaloupe Anaphylaxis High 04/09/2019 Celery Oil Anaphylaxis High 10/05/2022 Cephalexin Itching Low 10/05/2022 Chicken Anaphylaxis High 10/05/2022 Contrast-Iodinated Agents For Ct/Other Itching,Anaphylaxis High 04/09/2019 Butter, margarine, hickory flavoring, paw paw, root beer, Cyclobenzaprine Unknown 10/05/2022 Echinacea Anaphylaxis High 04/09/2019 Fish Allergy Anaphylaxis High 04/09/2019 Fish Oil Anaphylaxis High 10/05/2022 Garlic Anaphylaxis High 10/05/2022 Honeydew Anaphylaxis High 04/09/2019 Lac Bovis Anaphylaxis High 10/05/2022 Meperidine Other High 01/07/2017 tachycardia Metaxalone Unknown 10/05/2022 Oxycodone-Aspirin Itching Medium 01/07/2017 Propoxyphene Itching,Other Low 01/07/2017 Ringing in ears Tree Nuts Anaphylaxis High 04/09/2019 [place] Anaphylaxis High 04/09/2019 Wheat Bran Anaphylaxis High 10/05/2022 Yeast Anaphylaxis High 10/05/2022 Medications * Be aware that medications may not be up to date on this document. Alwaysverify current medications with the patient. Medication Sig Dispensed Refills Start Date End Date Status acetaminophen (TYLENOL) 500 MG tablet Take 2 (two) tablets by mouth 3 times daily Maximum allowable Acetaminophen amount = 4 Grams (4000 mg) / 24 hours. 10/09/2022 Active albuterol-ipratropi um (Duo-Neb) 0.5-2.5 (3) MG/3ML nebulizer solution Inhale 3 mL by mouth every 6 hours as needed for Shortness of Breath or Wheezing 10/09/2022 Active gabapentin (Neurontin) 100 MG capsule Take 1 (one) capsule by mouth 3 times daily 10/10/2022 Active atorvastatin (Lipitor) 20 MG tablet Take 1 (one) tablet by mouth at bedtime 10/09/2022 Active metoprolol tartrate IR (Lopressor) 25 MG tablet Take 1 (one) tablet by mouth 2 times daily 10/09/2022 Active guaiFENesin ER 12hr (Mucinex) 600 MG tablet Take 1 (one) tablet by mouth every 12 hours 10/09/2022 Active saline nasal spray ([place]; Baby Olmitz) 0.65 % nasal spray [place] 2 (two) sprays into each nostril every 30 minutes as needed for Dry Nose 10/09/2022 Active lidocaine (Lidoderm) 5 % patch Apply 2 (two) patches to skin every 24 hours Apply patch to most painful area and remove after 12 hours. May reapply a new patch 12 hours later. 10/10/2022 Active ferrous sulfate 325 (65 FE) MG tablet Take 1 (one) tablet by mouth every 2 days 10/09/2022 Active melatonin 3 MG tablet Take 1 (one) tablet by mouth at bedtime 10/09/2022 Active multivitamin daily tablet Take 1 (one) tablet by mouth once daily 10/10/2022 Active artificial tears ophthalmic solution Instill 1 (one) drop into both eyes every 4 hours as needed 10/09/2022 Active pantoprazole EC (Protonix) 40 MG tablet Take 1 (one) tablet by mouth once daily 10/10/2022 Active polyethylene glycol 3350 (Miralax) 17 g packet Take 17 (seventeen) g by mouth once daily as needed for Constipation 10/09/2022 Active Active Problems Problem Noted Date Diagnosed Date Elevated troponin 10/07/2022 SVT (supraventricular tachycardia) 10/07/2022 Fall 10/06/2022 Multiple rib fractures 10/06/2022 Acute pain 10/06/2022 Impaired mobility and ADLs 10/06/2022 Spleen laceration 10/04/2022 Resolved Problems Problem Noted Date Diagnosed Date Resolved Date ' 10/07/2022 10/07/2022 Social History Tobacco Use Types Packs/Day Years Used Date Smoking Tobacco: Every Day Cigarettes Smokeless Tobacco: Never Alcohol Use Standard Drinks/Week Comments No 0 (1 standard drink = 0.6 oz pur e alcohol) AUDIT-C Answer Date Recorded Q1: How often do you have a drink containing alcohol? Never 10/04/2022 Q2: How many drinks containi ng alcohol do you have on a typical day when you are drinking? Patient does not drink Q3: How often do you have si x or more drinks on one occasion? Never 10/04/2022 Hunger Vital Sign Answer Date Recorded Within the past 12 months, y ou worried that your food would run out before you got the money to buy more. Never true 10/05/20 22 Within the past 12 months, t he food you bought just didn't last and you didn't have money to get more. Never true 10/05/2022 Sex and Gender Information Value Date Recorded Sex Assigned at Not on file Gender Identity Not on file Sexual Orientation Not on file Last Filed Vital Signs Vital Sign Reading Time Taken Comments Blood Pressure 143/66 10/09/2022 8:57 AM PULP GR[employer]ER AND BLENDER Pulse 80 10/09/2022 11:47 AM [employer] Temperature 36.8 ??C (98.2 ??F) 10/09/2022 8:57 AM CS T Respiratory Rate 18 10/09/2022 11:47 AM [employer] Oxygen Saturation 100% 10/09/2022 11:47 AM [employer] Inhaled Oxygen Concentration - - Weight 83.9 kg (185 lb) 10/04/2022 3:20 PM [employer] Height 177.8 cm (5' 10 ) 10/04/2022 3:20 PM [employer] Body Mass Index 26.54 10/04/2022 3:20 PM [employer] Functional Status Functional Status Response Date of Assess ment Is person deaf or have serious hearing difficult y? No 10/04/2022 Is person blind or have serious difficulty seein g? No 10/04/2022 Does person have serious dif ficulty walking/climbing stairs? No 10/04/2022 Does person have difficulty dressing/bathing? No 10/04/2022 Does person have difficulty doing errands alone? Yes 10/04/2022 Cognitive Status Response Date of Assessm ent Does person have difficulty concentrating/remembering/making decisions? No 10/04/2022 Plan of Treatment Not on file Advance Directives * Full Code (Latest Code Status on File) Date Activated Date Inactivated Comments 10/04/2022 5:20 PM 10/09/2022 2:39 PM Care Teams Soft Boarder Relationship Specialty Start Date End Date Fahad Desai MD PCP - General 11/25/16
--- OUTSIDE RECORDS SUMMARY | 2024-11-10 05:34 | XMS_ITS ---
Author Organization [facility] Address [address] [place], [place] [address] Care Team Providers Care Valve Machine Operator Name Role Phone Edmond Desai Unavailable Unavailable CORAL GARZA Unavailable [phone] REASON FOR VISIT *General care Encounters Encounter Location Date Provider Diagnosis [address] [id number] 09/21/2024 CORAL GARZA Other hammer toe(s) (acquired), right foot M20.41 ; Tinea unguium B35.1 ; Other hammer toe(s) (acquired), left foot M20.42 ; Pain in right toe(s) M79.674 ; Pain in left toe(s) M79.675 and Unspecified atherosclerosis of [place] arteries of extremities, bilateral legs I70.203 Assessments Encounter Date Diagnosis (ICD Code) Assessment Notes Treatment Notes Treatment Clinical Notes Section Notes 09/21/2024 Other hammer toe(s) (acquired), right foot (ICD-10 - M20.41) The patient was educated regarding how to mechanically stabilize their deformity. The patient was given education about shoe recommendations specific for the condition. The patient was educated about custom orthotics and how appropriate shoes and orthotics can prevent further worsening of the deformity. The patient was educated about how bad shoe habits can worsen the condition. NSAIDS, P.T., injections and other conservative treatments were discussed. Both surgical and non surgical treatments were discussed, but conservative options were emphasized. 09/21/2024 Tinea unguium (ICD-10 - B35.1) Aseptic debridement of elongated thickened nails x 10 using sterile nippers, nails were debrided in length and thickness by 30% utilizing a nail nipper without incident. The patient was educated regarding all treatment options that include topical and oral antifungal treatments. I discussed the options of taking a sample of the nail to confirm diagnosis. Nail clippings were not sent for pathology analysis. The patient was educated why and how the fungal infection evolved in their feet and the patient was given information regarding how to prevent further infection. The patient was told to keep feet dry and change socks. The patient was told to be careful with old shoes and excessive sweating. The patient was educated regarding both OTC and prescription treatments. 09/21/2024 Other hammer toe(s) (acquired), left foot (ICD-10 - M20.42) 09/21/2024 Pain in right toe(s) (ICD-10 - M79.674) 09/21/2024 Pain in left toe(s) (ICD-10 - M79.675) 09/21/2024 Unspecified atherosclerosis of [place] arteries of extremities, bilateral legs (ICD-10 - I70.203) Patient educated on risks and aggravating factors of PVD, including conservative treatment options such as a diet and exercise regimen to aid in slowing progression of vascular disease Plan Of Treatment Treatment Notes Assessment Notes Other hammer toe(s) (acquired), right fo ot The patient was educated regarding how to mechanically stabilize their deformity. The patient was given education about shoe recommendations specific for the condition. The patient was educated about custom orthotics and how appropriate shoes and orthotics can prevent further worsening of the deformity. The patient was educated about how bad shoe habits can worsen the condition. NSAIDS, P.T., injections and other conservative treatments were discussed. Both surgical and non surgical treatments were discussed, but conservative options were emphasized. Tinea unguium Aseptic debridement of elongated thickened nails x 10 using sterile nippers, nails were debrided in length and thickness by 30% utilizing a nail nipper without incident. The patient was educated regarding all treatment options that include topical and oral antifungal treatments. I discussed the options of taking a sample of the nail to confirm diagnosis. Nail clippings were not sent for pathology analysis. The patient was educated why and how the fungal infection evolved in their feet and the patient was given information regarding how to prevent further infection. The patient was told to keep feet dry and change socks. The patient was told to be careful with old shoes and excessive sweating. The patient was educated regarding both OTC and prescription treatments. Unspecified atherosclerosis of [place] arteries of extremities, bilateral legs Patient educated on risks and aggravating factors of PVD, including conservative treatment options such as a diet and exercise regimen to aid in slowing progression of vascular disease Next Appt Details Follow Up: 3 Months, Reason: Provider Name:CORAL GARZA, 12/07/2024 01:10:00 PM, [address], [place], [id number], Progress Notes * Donato SERRANODOB:1950 ( 74 yo M)Acc No.[id number]:09/21/2024 Patient:?Donato SERRANO Provider:?CORAL GARZA :1950???Age:74 Y???Sex:Male Talon e:09/21/2024 Address:[address] [place], [place] [id number] Subjective: * Chief Complaints: * ???1. *General care. * HPI: ???HPI:?General care?Patient presents to the office for at risk foot care. Patient states that their nails are thickened, elongated and painful. Patient states that it is aggravated by shoe gear. Onset is gradual. Patient denies being diabetic., Patient denies taking prescription blood thinners but does take a daily aspirin., Date last seen by Dr. Desai was 03/2024., Initials [facility].? * ROS:?General / Constitutional:?Patient denies?weakness.?Respiratory:?Patient denies?chronic cough, shortness of breath, sputum production.?Cardiovascular:?Patient denies?chest pain, history of [place], irregular heartbeat.?Musculoskeletal:?Patient complains of?hammertoes.?Peripheral Vascular:?Patient denies?blanching of skin, cold extremities, decreased sensation in extremities.?Skin:?Patient complains of?fungal nails, nail changes.?Neurologic:?Patient denies?dizziness, gait abnormality, headache.? * Medical History:? Objective: * Vitals:? * Examination: ???Physical Examination: ???Vascular: Dorsalis Pedis pulse noted at 1/4 right foot and 1/4 left foot and Posterior Tibial pulse noted at 1/4 right foot and 1/4 left foot, Capillary refill times noted to be less than three seconds x ten, Temperature gradient noted to be warm to cool to bilateral foot, pedal hair present to bilateral foot and no varicosities are noted Dermatologic: there are no open lesions, no signs of active clinical infection, no erythema noted, no ecchymoses, nails are elongated thickened and dystrophic with subungual debris x ten Musculoskeletal: there is pain to palpation onto nail plate x ten, no calf pain noted bilaterally, arch height noted at 2/5 non-weight bearing bilaterally, first metatarsophalangeal joint range of motion 30 deg non-weight bearing bilaterally, flexible fifth digit hammer toe deformity noted to bilateral foot reducible with kelikian push up test Neurology: protective sensation intact to light touch bilateral digits one through five, vibratory sensation intact to first metatarsophalangeal joint bilaterally. Assessment: * Assessment: 1.?Tinea unguium - B35.1 (Pr imary)???2.?Other hammer toe(s) (acquired), right foot - M20.41???3.?Other hammer toe(s) (acquired), left foot - M20.42???4.?Pain in right toe(s) - M79.674???5.?Pain in left toe(s) - M79.675???6.?Unspecified atherosclerosis of [place] arteries of extremities, bilateral legs - I70.203??? Plan: * Treatment: 2.?Other hammer toe(s) (acqu ired), right foot? Notes: The patient was educated regarding how to mechanically stabilize their deformity. The patient was given education about shoe recommendations specific for the condition. The patient was educated about custom orthotics and how appropriate shoes and orthotics can prevent further worsening of the deformity. The patient was educated about how bad shoe habits can worsen the condition. NSAIDS, P.T., injections and other conservative treatments were discussed. Both surgical and non surgical treatments were discussed, but conservative options were emphasized. ?? 3.?Unspecified atheroscleros is of [place] arteries of extremities, bilateral legs? Notes: Patient educated on risks and aggravating factors of PVD, including conservative treatment options such as a diet and exercise regimen to aid in slowing progression of vascular disease ?? * Procedure Codes:?95419 DEBRI DE NAIL, 6 OR MORE, Modifiers: Q8 * Follow Up:?3 Months * Billing Information: * Visit Code:? * Procedure Codes:? 45150 DEBRIDE NAIL, 6 OR MORE. Modifiers: Q8 * TECH Sign off status: Completed true * Provider:SUSAN GARZA Date:?09/21/2024 Generated for Martin doyle/Shirley/Alfie on:?11/10/2024 05:34 AM XRAY TECH History and Physical Notes * HPI (History of Present Illness) Category Sub-Category Detail Notes Category Not es HPI General care Patient presents to the office for at risk foot care. Patient states that their nails are thickened, elongated and painful. Patient states that it is aggravated by shoe gear. Onset is gradual. Patient denies being diabetic., Patient denies taking prescription blood thinners but does take a daily aspirin., Date last seen by Dr. Desai was 03/2024., Initials [facility] Examination Category Sub-Category Detail Notes Category Not es Physical Examination Vascular: Dorsalis Pedis pulse noted at 1/4 right foot and 1/4 left foot and Posterior Tibial pulse noted at 1/4 right foot and 1/4 left foot, Capillary refill times noted to be less than three seconds x ten, Temperature gradient noted to be warm to cool to bilateral foot, pedal hair present to bilateral foot and no varicosities are noted Dermatologic: there are no open lesions, no signs of active clinical infection, no erythema noted, no ecchymoses, nails are elongated thickened and dystrophic with subungual debris x ten Musculoskeletal: there is pain to palpation onto nail plate x ten, no calf pain noted bilaterally, arch height noted at 2/5 non-weight bearing bilaterally, first metatarsophalangeal joint range of motion 30 deg non-weight bearing bilaterally, flexible fifth digit hammer toe deformity noted to bilateral foot reducible with kelikian push up test Neurology: protective sensation intact to light touch bilateral digits one through five, vibratory sensation intact to first metatarsophalangeal joint bilaterally
--- OUTSIDE RECORDS SUMMARY | 2024-11-10 05:34 | XMS_ITS | Clinical Summary ---
Author Organization [facility] Address [address] [place] [address] Care Team Providers Care Governor Assembler Hydraulic Name Role Phone Fahad Desai MD Primary Care Provider [phone] Source Comments [facility],non-owned Affiliates and Associated Physician Practices is amultiple site organization consisting of ambulatory clinics and hospital sitesin [place], [place], [place] and [place]. This disclosure is being madepursuant to the Care Everywhere program and may not contain all information available regarding this patient. 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 Never true 10/05/20 Within the past 12 months, t he food you bought just didn't last and you didn't have money to get more. Never true 10/05/2022 Sex and Gender Information Value Date Recorded Sex Assigned at Not on file Gender Identity Not on file Sexual Orientation Not on file Last Filed Vital Signs Vital Sign Reading Time Taken Comments Blood Pressure 143/66 10/09/2022 8:57 AM CADDY/CADDIE SUPERVISOR Pulse 80 10/09/2022 11:47 AM CADDY/CADDIE SUPERVISOR Temperature 36.8 ??C (98.2 ??F) 10/09/2022 8:57 AM CS T Respiratory Rate 18 10/09/2022 11:47 AM CADDY/CADDIE SUPERVISOR Oxygen Saturation 100% 10/09/2022 11:47 AM CADDY/CADDIE SUPERVISOR Inhaled Oxygen Concentration - - Weight 83.9 kg (185 lb) 10/04/2022 3:20 PM CADDY/CADDIE SUPERVISOR Height 177.8 cm (5' 10 ) 10/04/2022 3:20 PM CADDY/CADDIE SUPERVISOR Body Mass Index 26.54 10/04/2022 3:20 PM CADDY/CADDIE SUPERVISOR Plan of Treatment Health Maintenance Due Date Last Done Comments COLOGUARD (AGES 45-75) - COL ON CA SCREENING 1950 COLON MONITORING 1950 COLONOSCOPY - COLON CA SCREENING 1950 CT COLONOGRAPHY - COLON CA SCREENING 1950 Colorectal Cancer Screening 1950 FIT - COLON CA SCREENING 1950 FLEX SIG - COLON CA SCREENING 1950 MEDICARE AWV ? 12 MONTHS 1950 HEPATITIS C SCREENING 12/29/1968 DTAP/TDAP/TD VACCINES (1 - Tdap) 1970 PNEUMOCOCCAL VACCINE 50+ (1 of 2 - PCV) 1970 ZOSTER VACCINE (1 of 2) 2001 Respiratory Syncytial Virus (RSV) Vaccine Pt: or over 60 yrs (1 - Risk 60-74 years 1-dose series) 2011 AAA SCREENING 01/04/2016 COVID-19 VACCINE ( - 2023-2 5 season) 2024 INFLUENZA VACCINE (#1) 2024 DEPRESSION SCREENING 10/18/2024 HEPATITIS B VACCINE Aged Out No longe r eligible based on patient's age to complete this topic HIB VACCINE Aged Out No longer eligi ble based on patient's age to complete this topic HPV VACCINE Aged Out No longer eligi ble based on patient's age to complete this topic MENINGOCOCCAL (Group B) VACCINE Aged Out No longer eligible based on patient's age to complete this topic MENINGOCOCCAL VACCINE Aged Out No fallon patricia eligible based on patient's age to complete this topic Advance Directives * Full Code (Latest Code Status on File) Date Activated Date Inactivated Comments 10/04/2022 5:20 PM 10/09/2022 2:39 PM Care Teams Governor Assembler Hydraulic Relationship Specialty Start Date End Date Fahad Desai MD PCP - General 11/25/16
--- OUTSIDE RECORDS SUMMARY | 2024-11-10 05:34 | XMS_ITS ---
Author Organization [facility] Address [address] [place], [place] [id number] Care Team Providers Care Test Department Helper Name Role Phone Edmond Desai Unavailable Unavailable CORAL GARZA Unavailable [phone] Allergies No Known Allergies REASON FOR VISIT *General care Encounters Encounter Location Date Provider Diagnosis [address] [id number] 07/13/2024 CORAL GARZA Other hammer toe(s) (acquired), right foot M20.41 ; Tinea unguium B35.1 ; Other hammer toe(s) (acquired), left foot M20.42 ; Pain in right toe(s) M79.674 ; Pain in left toe(s) M79.675 and Unspecified atherosclerosis of [place] arteries of extremities, bilateral legs I70.203 Assessments Encounter Date Diagnosis (ICD Code) Assessment Notes Treatment Notes Treatment Clinical Notes Section Notes 07/13/2024 Other hammer toe(s) (acquired), right foot (ICD-10 [...] were discussed, but conservative options were emphasized. 07/13/2024 Tinea unguium (ICD-10 - B35.1) Aseptic debridement [...] educated regarding both OTC and prescription treatments. 07/13/2024 Other hammer toe(s) (acquired), left foot (ICD-10 - M20.42) 07/13/2024 Pain in right toe(s) (ICD-10 - M79.674) 07/13/2024 Pain in left toe(s) (ICD-10 - M79.675) 07/13/2024 Unspecified atherosclerosis of [place] arteries of extremities, bilateral legs (ICD-10 - [...] OTC and prescription treatments. Unspecified atherosclerosis of [place] arteries of extremities, bilateral legs Patient educated on risks and aggravating factors of PVD, including conservative treatment options such as a diet and exercise regimen to aid in slowing progression of vascular disease Next Appt Details Follow Up: 3 Months, Reason: Provider Name:CORAL CASTELLANOPITA, 12/07/2024 01:10:00 PM, [address] [place], [place], [id number], Progress Notes * Donato SERRANODOB:1950 ( 74 yo M)Acc No.[id number]:07/13/2024 Patient:?Donato SERRANO Provider:?CORAL GARZA :1950???Age:74 Y???Sex:Male Talon e:07/13/2024 Address:[address] [place], [place] [id number] Subjective: * Chief Complaints: * ???1. *General care. * HPI: ???HPI:?General care?Patient presents to the office for at risk foot care. Patient states that their nails are thickened, elongated and painful. Patient states that it is aggravated by shoe gear. Onset is gradual. Patient denies being diabetic., Patient denies taking blood thinners., Date last seen by Dr. Desai was last year., Initials [facility].? * ROS:?General / Constitutional:?Patient denies?weakness.?Respiratory:?Patient denies?chronic cough, shortness of breath, sputum production.?Cardiovascular:?Patient denies?chest pain, history of [place], irregular heartbeat.?Musculoskeletal:?Patient complains of?hammertoes.?Peripheral Vascular:?Patient denies?blanching of skin, cold extremities, decreased sensation in extremities.?Skin:?Patient complains of?fungal nails, nail changes.?Neurologic:?Patient denies?dizziness, gait abnormality, headache.? * Medical History:? * Allergies:?N.K.D.A. Objective: * Vitals:? * Examination: ???Physical Examination: [...] in left toe(s) - M79.675???6.?Unspecified atherosclerosis of [place] arteries of extremities, bilateral legs - I70.203??? [...] were emphasized. ?? 3.?Unspecified atheroscleros is of [place] arteries of extremities, bilateral legs? Notes: Patient educated on risks and aggravating factors of PVD, including conservative treatment options such as a diet and exercise regimen to aid in slowing progression of vascular disease ?? * Procedure Codes:?42484 DEBRI DE NAIL, 6 OR MORE, Modifiers: Q8 * Follow Up:?3 Months * Billing Information: * Visit Code:? * Procedure Codes:? 17275 DEBRIDE NAIL, 6 OR MORE. Modifiers: Q8 * Sign off status: Completed true * Provider:SUSAN GARZA Date:?07/13/2024 Generated for Martin doyle/Shirley/Alfie on:?11/10/2024 05:34 AM ANALYSIS MANAGER History and Physical Notes * HPI (History of Present Illness) Category Sub-Category Detail Notes Category Not es HPI General care Patient presents to the office for at risk foot care. Patient states that their nails are thickened, elongated and painful. Patient states that it is aggravated by shoe gear. Onset is gradual. Patient denies being diabetic., Patient denies taking blood thinners., Date last seen by Dr. Desai was last year., Initials [facility] Examination Category Sub-Category Detail Notes [...]
--- OUTSIDE RECORDS SUMMARY | 2024-11-10 05:34 | XMS_ITS ---
Author Organization [facility] Address [address] [place], [place] [address] Care Team Providers Care Field Engineer Name Role Phone Edmond Desai Unavailable Unavailable CORAL GARZA Unavailable [phone] REASON FOR VISIT *General care Vital Signs Height 70 in 05/11/2024 Weight 192 lbs 05/11/2024 BMI 27.55 kg/m2 05/11/2024 Height-cm 177.8 cm 05/11/2024 Weight-kg 87.09 kg 05/11/2024 Encounters Encounter Location Date Provider Diagnosis [facility] [address] [place], [place] [id number] 05/11/2024 CORAL GARZA Other hammer toe(s) (acquired), right foot M20.41 ; Tinea unguium B35.1 ; Other hammer toe(s) (acquired), left foot M20.42 ; Pain in right toe(s) M79.674 ; Pain in left toe(s) M79.675 and Unspecified atherosclerosis of [place] arteries of extremities, bilateral legs I70.203 Assessments Encounter Date Diagnosis (ICD Code) Assessment Notes Treatment Notes Treatment Clinical Notes Section Notes 05/11/2024 Other hammer toe(s) (acquired), right foot (ICD-10 [...] were discussed, but conservative options were emphasized. 05/11/2024 Tinea unguium (ICD-10 - B35.1) Aseptic debridement [...] educated regarding both OTC and prescription treatments. 05/11/2024 Other hammer toe(s) (acquired), left foot (ICD-10 - M20.42) 05/11/2024 Pain in right toe(s) (ICD-10 - M79.674) 05/11/2024 Pain in left toe(s) (ICD-10 - M79.675) 05/11/2024 Unspecified atherosclerosis of [place] arteries of extremities, bilateral legs (ICD-10 - [...] OTC and prescription treatments. Unspecified atherosclerosis of [place] arteries of extremities, bilateral legs Patient educated on risks and aggravating factors of PVD, including conservative treatment options such as a diet and exercise regimen to aid in slowing progression of vascular disease Next Appt Details Follow Up: 3 Months, Reason: Provider Name:CORAL GARZA, 12/07/2024 01:10:00 PM, [address] [place], [place], [id number], Progress Notes * Donato SERRANODOB:1950 ( 74 yo M)Acc No.[id number]:05/11/2024 Patient:?Donato SERRANO Provider:?CORAL GARZA :1950???Age:74 Y???Sex:Male Talon e:05/11/2024 Address:[address] [place], [place] [id number] Subjective: * Chief Complaints: * ???1. *General care. * HPI: ???HPI:?General care?Patient presents to the office for at risk foot care. Patient states that their nails are thickened, elongated and painful. Patient states that it is aggravated by shoe gear. Onset is gradual. Patient denies being diabetic.,?Patient denies taking blood thinners.,?Date last seen by Dr. Desai was September 2023.,?Initials [facility].? * ROS:?General / Constitutional:?Patient denies?weakness.?Respiratory:?Patient denies?chronic cough, shortness of breath, sputum production.?Cardiovascular:?Patient denies?chest pain, history of [place], irregular heartbeat.?Musculoskeletal:?Patient complains of?hammertoes.?Peripheral Vascular:?Patient denies?blanching of skin, cold extremities, decreased sensation in extremities.?Skin:?Patient complains of?fungal nails, nail changes.?Neurologic:?Patient denies?dizziness, gait abnormality, headache.? * Medical History:? Objective: * Vitals:?Wt:192lbs, Wt-k .09 kg, Ht: 70 in, Ht-cm: 177.8 cm, BMI:27.55Index, Body Surface Area: 2.07. * Examination: ???Physical Examination: ???Vascular: Dorsalis Pedis [...] bilateral foot and no varicosities are noted ?Dermatologic: there are no open lesions, no signs of active clinical infection, no erythema noted, no ecchymoses, nails are elongated thickened and dystrophic with subungual debris x ten ?Musculoskeletal: there is pain to palpation onto nail plate x ten, no calf pain noted bilaterally, arch height noted at 2/5 non-weight bearing bilaterally, first metatarsophalangeal joint range of motion 30 deg non-weight bearing bilaterally, flexible fifth digit hammer toe deformity noted to bilateral foot reducible with kelikian push up test ?Neurology: protective sensation intact to light touch bilateral digits one through five, vibratory sensation intact to first metatarsophalangeal joint bilaterally. Assessment: * Assessment: 1.?Tinea unguium - B35.1 (Pr imary)?2.?Other hammer toe(s) (acquired), right foot - M20.41?3.?Other hammer toe(s) (acquired), left foot - M20.42?4.?Pain in right toe(s) - M79.674?5.?Pain in left toe(s) - M79.675?6.?Unspecified atherosclerosis of [place] arteries of extremities, bilateral legs - I70.203? Plan: * Treatment: 2.?Other hammer toe(s) (acqu [...] were emphasized. ?? 3.?Unspecified atheroscleros is of [place] arteries of extremities, bilateral legs? Notes: Patient educated on risks and aggravating factors of PVD, including conservative treatment options such as a diet and exercise regimen to aid in slowing progression of vascular disease ?? * Procedure Codes:?00723 DEBRI DE NAIL, 6 OR MORE, Modifiers: Q8 * Follow Up:?3 Months * Billing Information: * Visit Code:? * Procedure Codes:? 17908 DEBRIDE NAIL, 6 OR MORE. Modifiers: Q8 * Sign off status: Completed true * Provider:SUSAN GARZA Date:?05/11/2024 Generated for Martin doyle/Shirley/Alfie on:?11/10/2024 05:34 AM EVENT MANAGEMENT CONSULTANT History and Physical Notes * HPI (History [...] Date last seen by Dr. Desai was September 2023., Initials [facility] Examination Category Sub-Category Detail Notes Category Not [...]
--- OUTSIDE RECORDS SUMMARY | 2024-11-10 05:34 | XMS_ITS | Patient Health Summary ---
Author Organization [facility] [employer] Address [address] [facility] [place] [address] Care Team Providers Care Molding Room Supervisor Name Role Phone Fahad Desai MD Primary Care Provider [phone] Note from [facility],non-owned Affiliates and Associated Physician Practices is amultiple site organization consisting of ambulatory clinics and hospital sitesin [place], [place], [place] and [place]. This disclosure is being madepursuant to the Care Everywhere program and may not contain all information available regarding this patient. Last updated 18.[facility] Allergies * Albumin(Anaphylaxis) -High Criticality * Felipe Flavor(Anaphylaxis) -High Criticality * Banana(Anaphylaxis) -High Criticality * Cantaloupe(Anaphylaxis) -High Criticality * Celery Oil(Anaphylaxis) -High Criticality * Cephalexin(Itching) -Low Criticality * Chicken(Anaphylaxis) -High Criticality * Contrast-Iodinated Agents For Ct/Other(Itching,Anaphylaxis) -High Criticality * Cyclobenzaprine(Unknown) * Echinacea(Anaphylaxis) -High Criticality * Fish Allergy(Anaphylaxis) -High Criticality * Fish Oil(Anaphylaxis) -High Criticality * Garlic(Anaphylaxis) -High Criticality * Honeydew(Anaphylaxis) -High Criticality * Lac Bovis(Anaphylaxis) -High Criticality * Meperidine(Other) -High Criticality * Metaxalone(Unknown) * Oxycodone-Aspirin(Itching) -Medium Criticality * Propoxyphene(Itching,Other) -Low Criticality * Tree Nuts(Anaphylaxis) -High Criticality * [place](Anaphylaxis) -High Criticality * Wheat Bran(Anaphylaxis) -High Criticality * Yeast(Anaphylaxis) -High Criticality Medications * Be aware that medications may not be up to date on this document. Alwaysverify current medications with the patient. * acetaminophen (TYLENOL) 500 MG tablet(Started 10/09/2022) Take 2 (two) tablets by mouth 3 times daily Maximum allowable Acetaminophen amount = 4 Grams (4000 mg) / 24 hours. * albuterol-ipratropium (Duo-Neb) 0.5-2.5 (3) MG/3ML nebulizer solution(Started 10/09/2022) Inhale 3 mL by mouth every 6 hours as needed for Shortness of Breath or Wheezing * gabapentin (Neurontin) 100 MG capsule(Started 10/10/2022) Take 1 (one) capsule by mouth 3 times daily * atorvastatin (Lipitor) 20 MG tablet(Started 10/09/2022) Take 1 (one) tablet by mouth at bedtime * metoprolol tartrate IR (Lopressor) 25 MG tablet(Started 10/09/2022) Take 1 (one) tablet by mouth 2 times daily * guaiFENesin ER 12hr (Mucinex) 600 MG tablet(Started 10/09/2022) Take 1 (one) tablet by mouth every 12 hours * saline nasal spray ([place]; Baby [place]erry) 0.65 % nasal spray(Started 10/09/2022) Mather 2 (two) sprays into each nostril every 30 minutes as needed for Dry Nose * lidocaine (Lidoderm) 5 % patch(Started 10/10/2022) Apply 2 (two) patches to skin every 24 hours Apply patch to most painful area and remove after 12 hours. May reapply a new patch 12 hours later. * ferrous sulfate 325 (65 FE) MG tablet(Started 10/09/2022) Take 1 (one) tablet by mouth every 2 days * melatonin 3 MG tablet(Started 10/09/2022) Take 1 (one) tablet by mouth at bedtime * multivitamin daily tablet(Started 10/10/2022) Take 1 (one) tablet by mouth once daily * artificial tears ophthalmic solution(Started 10/09/2022) Instill 1 (one) drop into both eyes every 4 hours as needed * pantoprazole EC (Protonix) 40 MG tablet(Started 10/10/2022) Take 1 (one) tablet by mouth once daily * polyethylene glycol 3350 (Miralax) 17 g packet(Started 10/09/2022) Take 17 (seventeen) g by mouth once daily as needed for Constipation Active Problems Problem Noted Date Diagnosed Date [...] Comments Blood Pressure 143/66 10/09/2022 8:57 AM SCIENCE TECHNICIAN Pulse 80 10/09/2022 11:47 AM SCIENCE TECHNICIAN Temperature 36.8 ??C (98.2 ??F) 10/09/2022 8:57 AM CS T Respiratory Rate 18 10/09/2022 11:47 AM SCIENCE TECHNICIAN Oxygen Saturation 100% 10/09/2022 11:47 AM SCIENCE TECHNICIAN Inhaled Oxygen Concentration - - Weight 83.9 kg (185 lb) 10/04/2022 3:20 PM SCIENCE TECHNICIAN Height 177.8 cm (5' 10 ) 10/04/2022 3:20 PM SCIENCE TECHNICIAN Body Mass Index 26.54 10/04/2022 3:20 PM SCIENCE TECHNICIAN Procedures * CARDIAC EKG ORDER(Performed 11/04/2022) * CARDIAC EKG ORDER(Performed 10/13/2022) * CARDIAC EKG ORDER(Performed 10/13/2022) * PHOSPHORUS BLOOD(Performed 10/09/2022) * MAGNESIUM BLOOD(Performed 10/09/2022) * BASIC METABOLIC PANEL (CALCIUM TOTAL)(Performed 10/09/2022) * CBC W/O DIFFERENTIAL(Performed 10/09/2022) * URINALYSIS REFLEX TO MICROSCOPIC NO CULTURE(Performed 10/08/2022) * PH FECES(Performed 10/08/2022) * XR CHEST 1VW PORTABLE(Performed 10/08/2022) Performed for Cough, unspecified type * FOLATE(Performed 10/08/2022) * VITAMIN B12(Performed 10/08/2022) * COMPREHENSIVE METABOLIC PANEL(Performed 10/08/2022) * PHOSPHORUS BLOOD(Performed 10/08/2022) * MAGNESIUM BLOOD(Performed 10/08/2022) * CBC W/O DIFFERENTIAL(Performed 10/08/2022) * NM MYOCARD PERF REST STRESS(Performed 10/07/2022) Performed for Elevated troponin * CBC W/O DIFFERENTIAL(Performed 10/07/2022) * PHOSPHORUS BLOOD(Performed 10/07/2022) * BASIC METABOLIC PANEL (CALCIUM TOTAL)(Performed 10/07/2022) * MAGNESIUM BLOOD(Performed 10/07/2022) * XR ABDOMEN KUB PORTABLE(Performed 10/06/2022) Performed for Nausea without vomiting * XR CHEST 1VW PORTABLE(Performed 10/06/2022) Performed for Laceration of spleen, initial encounter * ECHO COMPLETE(Performed 10/06/2022) Performed for Elevated troponin * CBC W/O DIFFERENTIAL(Performed 10/06/2022) * EKG 12-LEAD(Performed 10/06/2022) Performed for Fall, initial encounter * CBC W/O DIFFERENTIAL(Performed 10/06/2022) * PHOSPHORUS BLOOD(Performed 10/06/2022) * BASIC METABOLIC PANEL (CALCIUM TOTAL)(Performed 10/06/2022) * MAGNESIUM BLOOD(Performed 10/06/2022) * MAGNESIUM BLOOD(Performed 10/05/2022) * PHOSPHORUS BLOOD(Performed 10/05/2022) * CALCIUM IONIZED WHOLE BLOOD(Performed 10/05/2022) * BASIC METABOLIC PANEL (CALCIUM TOTAL)(Performed 10/05/2022) * CBC W/O DIFFERENTIAL(Performed 10/05/2022) * CARDIAC EKG ORDER(Performed 10/05/2022) * XR CHEST 1VW PORTABLE(Performed 10/05/2022) Performed for Laceration of spleen, initial encounter * CBC W/O DIFFERENTIAL(Performed 10/05/2022) * CK BLOOD(Performed 10/05/2022) * TROPONIN I(Performed 10/04/2022) * HEMOGLOBIN A1C(Performed 10/04/2022) * LIPID PROFILE(Performed 10/04/2022) * PHOSPHORUS BLOOD(Performed 10/04/2022) * BASIC METABOLIC PANEL (CALCIUM TOTAL)(Performed 10/04/2022) * MAGNESIUM BLOOD(Performed 10/04/2022) * URINE DRUG SCREEN IMMUNOASSAY(Performed 10/04/2022) Performed for Fall, initial encounter * CBC W/O DIFFERENTIAL(Performed 10/04/2022) * TROPONIN I(Performed 10/04/2022) * EKG 12-LEAD(Performed 10/04/2022) Performed for Fall, initial encounter, Left-sided chest wall pain * BLOOD TYPE VERIFICATION(Performed 10/04/2022) * CT LUMBAR SPINE WO CONTRAST(Performed 10/04/2022) Performed for Fall, initial encounter * CT THORACIC SPINE WO CONTRAST(Performed 10/04/2022) Performed for Fall, initial encounter * CT CHEST ABDOMEN PELVIS W CONT(Performed 10/04/2022) Performed for Fall, initial encounter * CT CERVICAL SPINE WO CONTRAST(Performed 10/04/2022) Performed for Fall, initial encounter * CT HEAD WO CONTRAST(Performed 10/04/2022) Performed for Fall, initial encounter * XR PELVIS 1 OR 2VW(Performed 10/04/2022) Performed for Fall, initial encounter * XR CHEST 1VW PORTABLE(Performed 10/04/2022) Performed for Fall, initial encounter * TYPE + SCREEN PANEL(Performed 10/04/2022) Performed for Fall, initial encounter * LIPASE BLOOD(Performed 10/04/2022) * MAGNESIUM BLOOD(Performed 10/04/2022) * RETIC COUNT(Performed 10/04/2022) Performed for Fall, initial encounter * IRON + TRANSFERRIN PANEL(Performed 10/04/2022) Performed for Fall, initial encounter * TROPONIN I(Performed 10/04/2022) Performed for Fall, initial encounter * CK BLOOD(Performed 10/04/2022) Performed for Fall, initial encounter * PTT SLH(Performed 10/04/2022) Performed for Fall, initial encounter * PT-INR [facility](Performed 10/04/2022) Performed for Fall, initial encounter * CBC W AUTO DIFFERENTIAL(Performed 10/04/2022) Performed for Fall, initial encounter * BASIC METABOLIC PANEL (CALCIUM TOTAL)(Performed 10/04/2022) Performed for Fall, initial encounter * ALCOHOL ETHYL BLOOD(Performed 10/04/2022) Performed for Fall, initial encounter * EKG 12-LEAD(Performed 10/04/2022) Performed for Fall, initial encounter Results * CARDIAC EKG ORDER (11/04/2022 12:17 PM SCIENCE TECHNICIAN) Only the most recent of4 resultswithin the time period is included. Narrative 11/04/2022 12:17 PM SCIENCE TECHNICIAN Ordered by an unspecified provider. Scanned Document CARDIAC SERVICES ORD ERABLES * (ABNORMAL) CBC W/O DIFFERENTIAL (10/09/2022 10:33 AM SCIENCE TECHNICIAN) Only the most recent of8 resultswithin the time period is included. WBC 7.4 3.5 - 10.5 10? 3 /uL 10/09/2022 11:06 AM [facility] RBC 2.63(L) 4.30 - 5.70 10? 6 /uL 10/09/2022 11:06 AM [facility] Hemoglobin 8.3(L) 12.0 - 17.6 g/dL 10/09/2022 11:06 AM [facility] Hematocrit 24.8(L) 35.2 - 51.7 % 10/09/2022 11:06 AM [facility] MCV 94.3 80.7 - 98.3 fL 10/09/2022 11:06 AM [facility] MCH 31.6 26.7 - 34.0 pg 10/09/2022 11:06 AM [facility] MCHC 33.5 30.8 - 35.9 g/dL 10/09/2022 11:06 AM [facility] RDW-SD 48.1 36.0 - 50.0 fL 10/09/2022 11:06 AM [facility] RDW-CV 14.3 11.2 - 14.8 % 10/09/2022 11:06 AM [facility] Platelet Count 272 150 - 400 10? 3 /uL 10/09/2022 11:06 AM [facility] MPV 10.3 9.4 - 12.9 fL 10/09/2022 11:06 AM [facility] nRBC Absolute 0.00 0 10? 3 /uL 10/09/2022 11:06 AM [facility] nRBC Auto 0.0 0 /100 WBC 10/09/2022 11:06 AM [facility] Blood BLOOD SPECIMEN / Unknown Lab Venipuncture / Unknown 10/09/2022 10:33 AM SCIENCE TECHNICIAN 10/09/2022 10:50 AM [facility] Mylene Rocha APRN-CAST [employer] GRINDER LAB - HEMATOLOGY ORDERABLES Performing Organization Address [facility]/State/[facility] Co de Phone Number [facility] [address] [place] [phone], [facility] [phone] * (ABNORMAL) BASIC METABOLIC PANEL (CALCIUM TOTAL) (10/09/2022 10:33 AM [facility]) Only the most recent of6 resultswithin the time period is included. BUN 17 7 - 26 mg/dL 10/09/2022 11:17 AM [facility] Creatinine 0.66(L) 0.71 - 1.16 mg/dL 10/09/2022 11:17 AM [facility] Sodium 134(L) 136 - 145 mmol/L 10/09/2022 11:17 AM [facility] Potassium 3.2(L) 3.5 - 4.5 mmol/L 10/09/2022 11:17 AM [facility] Chloride 101 98 - 107 mmol/L 10/09/2022 11:17 AM [facility] CO2 30(H) 22 - 29 mmol/L 10/09/2022 11:17 AM [facility] Glucose 148(H) 70 - 115 mg/dL 10/09/2022 11:17 AM [facility] Calcium 7.9(L) 8.4 - 10.2 mg/dL 10/09/2022 11:17 AM [facility] Anion Gap 6(L) 8 - 18 10/09/2022 11:17 AM [facility] BUN/Creatinine Ratio 26(H) 7 - 23 10/09/2022 11:17 AM [facility] Osmolality Calculated 282 270 - 300 mOsm/kg 10/09/2022 11:17 AM [facility] eGFR by CKD-EPI >90 >=90 mL/min/1.7 3 m2 10/09/2022 11:17 AM [facility] Blood BLOOD SPECIMEN / Unknown Lab Venipuncture / Unknown 10/09/2022 10:33 AM SCIENCE TECHNICIAN 10/09/2022 10:50 AM SCIENCE TECHNICIAN Mylene Rocha APRNCAST SHELL GRINDER LAB - CHEMISTRY ORDERABLES [address] [address], [facility] [phone] * (ABNORMAL) PHOSPHORUS BLOOD (10/09/2022 10:33 AM SCIENCE TECHNICIAN) Only the most recent of6 resultswithin the time period is included. Phosphorus 2.1(L) 2.8 - 5.1 mg/dL 10/09/2022 11:17 AM [facility] Blood BLOOD SPECIMEN / Unknown Lab Venipuncture / Unknown 10/09/2022 10:33 AM SCIENCE TECHNICIAN 10/09/2022 10:50 AM SCIENCE TECHNICIAN Mylene Rocha INDUCTION BRAZER-[employer] LAB - CHEMISTRY ORDERABLES [address] [address], [facility] [phone] * MAGNESIUM BLOOD (10/09/2022 10:33 AM SCIENCE TECHNICIAN) Only the most recent of7 resultswithin the time period is included. Magnesium 2.0 1.6 - 2.6 mg/dL 10/09/2022 11:17 AM [facility] Blood BLOOD SPECIMEN / Unknown Lab Venipuncture / Unknown 10/09/2022 10:33 AM SCIENCE TECHNICIAN 10/09/2022 10:50 AM SCIENCE TECHNICIAN Mylene Mcneil Leesanadeemaleks INDUCTION BRAZER-[employer] LAB - CHEMISTRY ORDERABLES [facility] [address] [place] [phone], [facility] [phone] * (ABNORMAL) URINALYSIS REFLEX TO MICROSCOPIC NO CULTURE (10/08/2022 7:02 PM SCIENCE TECHNICIAN) Color UA Yellow Straw, Yellow 10/08/2022 7:39 PM [facility] Clarity UA Clear Clear 10/08/2022 7:39 PM [facility] Specific [place] UA 1.020 1.005 - 1.030 10/08/2022 7:39 PM [facility] pH UA 6.0 5.0 - 8.0 pH 10/08/2022 7:39 PM [facility] Protein UA 2+(A) Negative 10/08/2022 7:39 PM [facility] Glucose UA Negative Negative 10/08/2022 7:39 PM [facility] Ketone UA Negative Negative 10/08/2022 7:39 PM [facility] Bilirubin UA Negative Negative 10/08/2022 7:39 PM [facility] Comment:Urine Bilirubin resu lt confirmed by manual Ictotest. Blood UA 1+(A) Negative 10/08/2022 7:39 PM [facility] Nitrite UA Negative Negative 10/08/2022 7:39 PM [facility] Leukocyte Esterase Negative Negative 10/08/2022 7:39 PM [facility] Urobilinogen UA Negative Negative mg/dL 10/08/2022 7:39 PM [facility] RBC UA 0-2 None Seen, 0-2, 3-5 /HPF 10/08/2022 7:39 PM SCIENCE TECHNICIAN [facility] WBC UA 0-5 None Seen, 0-5 /HPF 10/08/2022 7:39 PM SCIENCE TECHNICIAN [facility] Bacteria UA Trace(A) None /HPF 10/08/2022 7:39 PM SCIENCE TECHNICIAN [facility] Squamous Epithelial Cells UA None Seen None Seen, 0-2, 3-5 /HPF 10/08/2022 7:39 PM SCIENCE TECHNICIAN [facility] Mucus UA 1+ /LPF 10/08/2022 7:39 PM SCIENCE TECHNICIAN [facility] Granular Casts UA 3-5(A) None Seen /LPF 10/08/2022 7:39 PM SCIENCE TECHNICIAN [facility] Urine URINE SPECIMEN OBTAINED BY CLEAN CATCH PROCEDURE / Unknown Collection / Unknown 10/08/2022 7:02 PM SCIENCE TECHNICIAN 10/08/2022 7:16 PM SCIENCE TECHNICIAN Narrative [facility] - 10/08/2022 7:39 PM SCIENCE TECHNICIAN Gonzalo Pagan MD LAB - URINALYSIS ORD ERABLES [facility] [address] [place] [address], [facility] [phone] * PH FECES (10/08/2022 12:27 PM SCIENCE TECHNICIAN) pH Feces 7.0 5.0 - 8.5 10/12/2022 10:52 AM SCIENCE TECHNICIAN [facility] ([facility]) Comment: Performed By: [facility] [employer] [address] [place] [address] Pin Or Clip Fastener: Stevie Persaud MD, PhD Stool STOOL SPECIMEN / Unknown Collection / Unknown 10/08/2022 12:27 PM SCIENCE TECHNICIAN 10/08/2022 12:43 PM SCIENCE TECHNICIAN Gonzalo Pagan MD LAB - BODY FLUID ORD ERABLES [facility] ([facility]) [address] [phone], [facility] * XR CHEST 1VW PORTABLE (10/08/2022 11:48 AM SCIENCE TECHNICIAN) Only the most recent of4 resultswithin the time period is included. Anatomical Region Laterality Modality Chest Radiographic Tawana ging 10/08/2022 3:11 PM SCIENCE TECHNICIAN Narrative 10/08/2022 4:06 PM SCIENCE TECHNICIAN PROCEDURE: ??XR CHEST 1VW PORTABLE, DATE/TIME OF EXAM: ??10/08/2022 11:50 AM, LOCATION ??[facility] INDICATION: R05.9: Cough, unspecified type ADDITIONAL CLINICAL INFORMATION: Ordering Provider Reason For Exam: ??cough COMPARISON: Chest radiographs 10/06/2022 TECHNIQUE: Frontal radiograph of the chest. FINDINGS/IMPRESSION: Largely unchanged patchy perihilar opacities. Small bilateral pleural effusions are redemonstrated. There is bibasilar atelectasis, right greater than left. No evidence of pneumothorax. The cardiomediastinal silhouette is unchanged in size and configuration. No rib fractures are better evaluated on prior CT imaging. Report dictated by Aiden Murray M.D. (physician vice president) Saul Webber have personally reviewed and interpreted this examination/study. > Interpreting Provider: Saul Walden on 10/08/2022 4:06 PM Procedure Note Saul Walden MD - 10/08/2022 PROCEDURE: XR CHEST 1VW PORTABLE, DATE/TIME OF EXAM: 10/08/2022 11:50AM, LOCATION [facility] INDICATION: R05.9: Cough, unspecified type ADDITIONAL CLINICAL INFORMATION: Ordering Provider Reason For Exam: cough COMPARISON: Chest radiographs 10/06/2022 TECHNIQUE: Frontal radiograph of the chest. FINDINGS/IMPRESSION: Largely unchanged patchy perihilar opacities. Small bilateral pleural effusions are redemonstrated. There is bibasilar atelectasis, rightgreater than left. No evidence of pneumothorax. The cardiomediastinal silhouette is unchanged in size and configuration.No rib fractures are better evaluated on prior CT imaging. Report dictated by Aiden Murray M.D. (physician vice president) Saul Webber have personally reviewed and interpreted this examination/study. > Interpreting Provider: Saul Walden on 10/08/2022 4:06 PM Gonzalo Pagan MD DIAGNOSTIC IMAGING O RDERABLES * (ABNORMAL) COMPREHENSIVE METABOLIC PANEL (10/08/2022 5:40 AM [facility]) BUN 24 7 - 26 mg/dL 10/08/2022 6:43 AM [facility] Creatinine 0.72 0.71 - 1.16 mg/dL 10/08/2022 6:43 AM [facility] Sodium 139 136 - 145 mmol/L 10/08/2022 6:43 AM [facility] Potassium 3.5 3.5 - 4.5 mmol/L 10/08/2022 6:43 AM [facility] Chloride 106 98 - 107 mmol/L 10/08/2022 6:43 AM [facility] CO2 28 22 - 29 mmol/L 10/08/2022 6:43 AM [facility] Glucose 103 70 - 115 mg/dL 10/08/2022 6:43 AM [facility] Calcium 7.9(L) 8.4 - 10.2 mg/dL 10/08/2022 6:43 AM [facility] Protein Total 5.2(L) 6.0 - 8.3 g/dL 10/08/2022 6:43 AM [facility] Albumin 2.4(L) 3.4 - 5.0 g/dL 10/08/2022 6:43 AM [facility] Bilirubin Total 1.0 0.2 - 1.2 mg/dL 10/08/2022 6:43 AM [facility] Alkaline Phosphatase 55 40 - 150 U/L 10/08/2022 6:43 AM [facility] ALT 36 5 - 55 U/L 10/08/2022 6:43 AM [facility] AST 31 5 - 34 U/L 10/08/2022 6:43 AM [facility] Anion Gap 9 8 - 18 10/08/2022 6:43 AM [facility] BUN/Creatinine Ratio 33(H) 7 - 23 10/08/2022 6:43 AM [facility] Osmolality Calculated 292 270 - 300 mOsm/kg 10/08/2022 6:43 AM [facility] Albumin/Globulin Ratio 0.9(L) 1.1 - 2.3 10/08/2022 6:43 AM [facility] eGFR by CKD-EPI >90 >=90 mL/min/1.7 3 m2 10/08/2022 6:43 AM [facility] Blood BLOOD SPECIMEN / Unknown Lab Venipuncture / Unknown 10/08/2022 5:40 AM SCIENCE TECHNICIAN 10/08/2022 6:11 AM SCIENCE TECHNICIAN Mlyene Mcneil Leesanadeemaleks BILLN-CAST SHELL GRINDER LAB - CHEMISTRY ORDERABLES [address] [address], [place] [phone] * FOLATE (10/08/2022 5:40 AM SCIENCE TECHNICIAN) Folate 9.3 7.0 - 31.4 ng/mL 10/08/2022 7:15 AM SCIENCE TECHNICIAN [facility] Blood BLOOD SPECIMEN / Unknown Lab Venipuncture / Unknown 10/08/2022 5:40 AM SCIENCE TECHNICIAN 10/08/2022 6:11 AM SCIENCE TECHNICIAN Mylene Mcneil Jamesaleks ABDIRASHID-CAST SHE[employer] GRINDER LAB - CHEMISTRY ORDERABLES [address] [address], [place] [phone] * VITAMIN B12 (10/08/2022 5:40 AM SCIENCE TECHNICIAN) Vitamin B12 710 213 - 816 pg/mL 10/08/2022 7:15 AM SCIENCE TECHNICIAN [facility] Blood BLOOD SPECIMEN / Unknown Lab Venipuncture / Unknown 10/08/2022 5:40 AM SCIENCE TECHNICIAN 10/08/2022 6:11 AM SCIENCE TECHNICIAN Mylene Mcneil Josefina INDUCTION BRAZER-CAST SHELL GRINDER LAB - CHEMISTRY ORDERABLES [address] [address], [place] [phone] * NM MYOCARD PERF REST STRESS (10/07/2022 12:29 PM SCIENCE TECHNICIAN) Anatomical Region Laterality Modality Chest Nuclear Medicine 10/07/2022 10:3 9 AM SCIENCE TECHNICIAN Impressions 10/07/2022 3:08 PM SCIENCE TECHNICIAN Impression: 1. Small, fixed defect in the distal infero-lateral wall suggestive of infarction. No evidence of stress induced ischemia. 2. Normal left ventricular function with a calculated ejection fraction of 46%. 3. Bilateral pleural effusions with parenchymal changes described above, suggestive of inflammatory/infectious etiology. > Dictated by Westley Alexander MD (Dye Feeder) 10/07/2022 1:56 PM ICecelia DO have personally reviewed and interpreted this examination/study. > Interpreting Provider: Cecelia Oneill DO on 10/07/2022 3:08 PM Narrative 10/07/2022 3:08 PM SCIENCE TECHNICIAN PROCEDURE: ??NM MYOCARD PERF REST STRESS, DATE/TIME OF EXAM: ??10/07/2022 9:59 AM, LOCATION ??[facility] INDICATION: R77.8: Elevated troponin Rest and Pharmacologic stress SPECT/CT myocardial imaging with gating- One day protocol History: 72 year old male patient presented with non sustained SVT, type 2 DM, splenic laceration and rib fracture due to fall, troponin today is downtrending, referred for Lexiscan to rule out ischemia. Procedure: ?? The rest intravenous injection of 7.7 mCi of Tc-99m Myoview was administered IV in the left forearm. Myocardial perfusion imaging was performed 30 minutes post-injection. Preliminary rest EKG demonstrated no evidence of ischemic changes. At the conclusion of the rest imaging, pharmacologic stress testing was performed with 0.4 mg of Regadenoson administered IV in the left forearm over 10 seconds. No low-level exercise was performed in conjunction with the vasodilator infusion. The patient experienced no chest pain. Preliminary stress ECG demonstrated no evidence of ischemic changes. After approximately 10 seconds, the patient was injected with 22.0 mCi of Tc-99m Myoview IV in the left forearm. Gated SPECT/CT myocardial perfusion imaging was performed 30 minutes post-injection. Patient's BMI is 26.5 kg/m. Low-dose noncontrast CT of the region of the heart was performed for attenuation correction only. The heart rate at rest was 71 at baseline and increased to 88 beats per minute during the vasodilator infusion. The BP was 129/56 at rest and 131/52 after the stress procedure. A separate ECG report will be read by Cardiology. Calcium scoring: Multiple unenhanced computed tomographic images with a section thickness of 2.5 mm were obtained throughout the entire heart. Image acquisition use a low radiation dose ECG synchronized CT protocol with the breath-hold. Calcium quantification and scoring was performed using an independent workstation. Findings: The image quality is technically adequate despite adjacent bowel activity. In the stress and rest SPECT/CT images, the left ventricle is normal in size. The stress SPECT/CT images show a small area of mildly reduced counts in the distal ??infero-lateral wall unchanged at rest images suggestive of infraction, no evidence of stress induced ischemia seen, Gated SPECT/CT images show normal myocardial thickening and inferior wall hypokinesis. The calculated left ventricular ejection fraction is 46%. Low dose CT portion of the study-non diagnostic- but demonstrates Bilateral pleural effusions more on the right with consolidations and honeycomb appearance and ??air bronchogram suggestive of infectious/inflammatory changes, atherosclerotic changes along the LAD noted, degenerative changes seen along the thoracic spine seen. Procedure Note Cecelia Oneill, DO - 10/07/2022 PROCEDURE: NM MYOCARD PERF REST STRESS, DATE/TIME OF EXAM: 10/07/2022 9:59 AM, LOCATION [facility] INDICATION: R77.8: Elevated troponin Rest and Pharmacologic stress SPECT/CT myocardial imaging with gating-One day protocol History: 72 year old male patient presented with non sustained SVT, type2 DM, splenic laceration and rib fracture due to fall, troponin today is downtrending, referred for Lexiscan to rule out ischemia. Procedure: The rest intravenous injection of 7.7 mCi of Tc-99m Myoview was administered IV in the left forearm. Myocardial perfusion imaging was performed 30 minutes post-injection. Preliminary rest EKG demonstratedno evidence of ischemic changes. At the conclusion of the rest imaging, pharmacologic stress testing was performed with 0.4 mg of Regadenoson administered IV in the left forearm over 10 seconds. No low-levelexercise was performed in conjunction with the vasodilator infusion. The patient experienced no chest pain. Preliminary stress ECG demonstrated noevidence of ischemic changes. After approximately 10 seconds, the patient was injected with 22.0 mCi of Tc-99m Myoview IV in the left forearm. Gated SPECT/CT myocardial perfusion imaging was performed 30 minutes post-injection. Patient's BMI is 26.5 kg/m. Low-dose noncontrast CT of the region of the heart was performed for attenuation correction only. The heart rate at rest was 71 at baseline and increased to 88 beats per minute during the vasodilator infusion. The BP was 129/56 at rest and 131/52 after the stress procedure. A separate ECG report will be read by Cardiology. Calcium scoring: Multiple unenhanced computed tomographic images with a section thickness of 2.5 mm were obtained throughout the entire heart. Image acquisition use a low radiation dose ECG synchronized CT protocol with the breath-hold. Calcium quantification and scoring was performed using an independent workstation. Findings: The image quality is technically adequate despite adjacent bowelactivity. In the stress and rest SPECT/CT images, the left ventricle is normal in size. The stress SPECT/CT images show a small area of mildly reducedcounts in the distal infero-lateral wall unchanged at rest images suggestiveof infraction, no evidence of stress induced ischemia seen, Gated SPECT/CT images show normal myocardial thickening and inferiorwall hypokinesis. The calculated left ventricular ejection fraction is 46%. Low dose CT portion of the study-non diagnostic- but demonstratesBilateral pleural effusions more on the right with consolidations and honeycomb appearance and air bronchogram suggestive of infectious/inflammatory changes, atherosclerotic changes along the LAD noted, degenerativechanges seen along the thoracic spine seen. Impression: 1. Small, fixed defect in the distal infero-lateral wall suggestive of infarction. No evidence of stress induced ischemia. 2. Normal left ventricular function with a calculated ejection fractionof 46%. 3. Bilateral pleural effusions with parenchymal changes described above, suggestive of inflammatory/infectious etiology. > Dictated by Westley Alexander MD (Dye Feeder) 10/07/2022 1:56PM Cecelia Webber DO have personally reviewed and interpreted this examination/study. > Interpreting Provider: Cecelia Oneill DO on 10/07/2022 3:08 PM Mylene Rocha INDUCTION BRAZER-CAST SHELL GRINDER NM ORDERABLES * XR ABDOMEN KUB PORTABLE (10/06/2022 2:04 PM SCIENCE TECHNICIAN) Anatomical Region Laterality Modality Abdomen Radiographic Tawana ging 10/06/2022 2:10 PM SCIENCE TECHNICIAN Impressions 10/06/2022 3:26 PM SCIENCE TECHNICIAN IMPRESSION: Nonspecific bowel gas pattern, potentially representing ileus. Report dictated by Aiden Murray M.D. (physician vice president) Gordy Webber MD have personally reviewed and interpreted this examination/study. > Interpreting Provider: Gordy Sahni MD on 10/06/2022 3:26 PM Narrative 10/06/2022 3:26 PM SCIENCE TECHNICIAN PROCEDURE: ??XR ABDOMEN KUB PORTABLE, DATE/TIME OF EXAM: ??10/06/2022 2:05 PM, LOCATION ??[facility] INDICATION: R11.0: Nausea without vomiting ADDITIONAL CLINICAL INFORMATION: Ordering Provider Reason For Exam: ??new nausea COMPARISON: CT chest/abdomen/pelvis 10/04/2022 TECHNIQUE: Supine frontal radiograph of the abdomen. FINDINGS: There is gaseous distention of multiple loops of small bowel, potentially due to ileus. The cecum is gas-filled and prominent measuring up to 9.2 cm in diameter, increased from prior. Surgical clips in the right upper quadrant. A left lateral rib fracture is visible Procedure Note Gordy Sahni MD - 10/06/2022 PROCEDURE: XR ABDOMEN KUB PORTABLE, DATE/TIME OF EXAM: 10/06/2022 2:05 PM, LOCATION [facility] INDICATION: R11.0: Nausea without vomiting ADDITIONAL CLINICAL INFORMATION: Ordering Provider Reason For Exam: new nausea COMPARISON: CT chest/abdomen/pelvis 10/04/2022 TECHNIQUE: Supine frontal radiograph of the abdomen. FINDINGS: There is gaseous distention of multiple loops of small bowel,potentially due to ileus. The cecum is gas-filled and prominent measuring up to 9.2cm in diameter, increased from prior. Surgical clips in the right upper quadrant. A left lateral rib fracture is visible IMPRESSION: Nonspecific bowel gas pattern, potentially representing ileus. Report dictated by Aiden Murray M.D. (physician vice president) Gordy Webber MD have personally reviewed and interpreted this examination/study. > Interpreting Provider: Gordy Sahni MD on 10/06/2022 3:26 PM Mylene Mcneil [facility] NG ORDERABLES * ECHO COMPLETE (10/06/2022 11:02 AM SCIENCE TECHNICIAN) Anatomical Region Laterality Modality Chest Echo 10/06/2022 10:0 7 AM SCIENCE TECHNICIAN Narrative Procedure Note Thelma Lopez MD - 10/06/2022 Ori Davis MD ECHOCARDIOGRAPHY RAD IANT * EKG 12-LEAD (10/06/2022 11:00 AM SCIENCE TECHNICIAN) Only the most recent of3 resultswithin the time period is included. Ventricular Rate 105 BPM [facility] Atrial Rate 105 BPM [facility] MUSE P-R Interval 138 ms H MUSE QRS Duration ms 92 ms [facility] Q-T Interval ms 336 ms [facility] MUSE QTC Calculation (Bezet) 444 ms [facility] Calculated P [place] 13 degrees [facility] Calculated R [place] -40 degrees [facility] Calculated T [place] 53 degrees [facility] Interpretation EKG SINUS TACHYCARDIA LEFT AXIS DEVIATION ABNORMAL ECG WHEN COMPARED WITH ECG OF 05-OCT-2022 15:51, PREMATURE VENTRICULAR COMPLEXES ARE NO LONGER PRESENT QRS AXIS SHIFTED LEFT Confirmed by fellow COTAVIO MORALES MD ([id number]) on 10/08/2022 11:32:49 AM Confirmed by STEPHANIE MCCOY MD ([id number]) on 10/09/2022 12:00:47 PM [facility] MUSE 10/06/2022 11:0 0 AM SCIENCE TECHNICIAN 10/09/2022 12:00 PM SCIENCE TECHNICIAN Mylene Rocha NICO ECG ORDERABLES [facility] MUSE * (ABNORMAL) CALCIUM IONIZED WHOLE BLOOD (10/05/2022 4:45 PM SCIENCE TECHNICIAN) Calcium Ionized 1.27 mmol/L 10/05/2022 4:52 PM SCIENCE TECHNICIAN [facility] pH 7.30(L) 7.35 - 7.45 pH 10/05/2022 4:52 PM [facility] Ionized Calcium pH Adjusted 1.22 1.19 - 1.34 mmol/L 10/05/2022 4:52 PM [facility] Blood BLOOD SPECIMEN / Unknown Venipuncture / Unknown 10/05/2022 4:45 PM SCIENCE TECHNICIAN 10/05/2022 4:49 PM SCIENCE TECHNICIAN Naren Layton PA-C LAB - CHEMISTRY O RDERABLES Performing Organization Address City/[facility]/ZIP Co de Phone Number [facility] [address] [place] [address], [facility] [phone] * (ABNORMAL) CK BLOOD (10/05/2022 3:25 AM SCIENCE TECHNICIAN) Only the most recent of2 resultswithin the time period is included. CK Total 936(H) 30 - 200 U/L 10/05/2022 4:05 AM SCIENCE TECHNICIAN [facility] Blood BLOOD SPECIMEN / Unknown Venipuncture / Unknown 10/05/2022 3:25 AM SCIENCE TECHNICIAN 10/05/2022 3:45 AM SCIENCE TECHNICIAN Ori Davis MD LAB - CHEMISTRY SARAHI FIGUEROA Performing Organization Address [facility]/ZIP Co de Phone Number [facility] [address] [place] [address], [place] [phone] * (ABNORMAL) TROPONIN I (10/04/2022 11:42 PM SCIENCE TECHNICIAN) Only the most recent of3 resultswithin the time period is included. Troponin I 0.145(H) <0.032 ng/mL 10/05/2022 12:21 AM SCIENCE TECHNICIAN [facility] Blood BLOOD SPECIMEN / Unknown Venipuncture / Unknown 10/04/2022 11:42 PM SCIENCE TECHNICIAN 10/04/2022 11:49 PM SCIENCE TECHNICIAN Ori Davis MD LAB - CHEMISTRY SARAHI FIGUEROA [facility] [address] [place] [address], [facility] [phone] * HEMOGLOBIN A1C (10/04/2022 11:42 PM SCIENCE TECHNICIAN) [facility] Hemoglobin A1c 5.2 <=5.6 % 10/05/2022 9:39 AM [facility] Estimated Average Glucose 103 mg/dL 10/05/2022 9:39 AM [facility] Comment: HbA1c Interpretation: Normal : < 5.7% Pre-diabetes: 5.7-6.4% Diabetes: Equal to or greater than 6.5% Test results diagnostic of diabetes should be repeated for confirmation. Treatment target values recommended by ADA and other clinical organizations should be used to evaluate metabolic control in patients. Reference: [place] [employer], Standards of Care in Diabetes -2020 In patients 70 years and older consider HbA1c target range of 7.0-7.5% (Reference: Alejo Parks et al. JAMDA. 2012) The Sebia assay for the measurement of HbA1c is a National Glycohemoglobin Standardization Program (NGSP) certified method. Blood BLOOD SPECIMEN / Unknown Venipuncture / Unknown 10/04/2022 11:42 PM SCIENCE TECHNICIAN 10/04/2022 11:49 PM SCIENCE TECHNICIAN Ori Davis MD LAB - CHEMISTRY SARAHI FIGUEROA [facility] [place] Organization Address City/State/ZIP Co de Phone Number [facility] [address] [place] [address], [facility] [phone] * (ABNORMAL) URINE DRUG SCREEN IMMUNOASSAY (10/04/2022 11:42 PM SCIENCE TECHNICIAN) [facility] Amphetamines Screen Urine Negative Negative : < 1000 ng/mL 10/05/2022 1:51 AM [facility] Barbiturates Screen Urine Negative Negative : < 200 ng/mL 10/05/2022 1:51 AM [facility] Benzodiazepine Screen Urine Negative Negative : < 200 ng/mL 10/05/2022 1:51 AM [facility] Opiates Urine Positive(A) Negative : < 300 ng/mL 10/05/2022 1:51 AM [facility] Comment:Positive urine opiat e screening results should be confirmed by another generally accepted non-immunological method such as gas chromatography or mass spectrometry. Cocaine Metabolites Urine Negative Negative : < 300 ng/mL 10/05/2022 1:51 AM [facility] Phencyclidine Screen Urine Negative Negative : < 25 ng/ml 10/05/2022 1:51 AM [facility] Cannabinoids Screen Urine Negative Negative : <50 ng/mL 10/05/2022 1:51 AM [facility] Methadone Screen Urine Negative Negative : < 300 ng/mL 10/05/2022 1:51 AM [facility] Fentanyl Screen Urine Negative Negative : <1.5 ng/mL 10/05/2022 1:51 AM [facility] Urine URINE / Unknown Collection / Unknown 10/04/2022 11:42 PM [facility] 10/04/2022 11:46 PM [facility] - 10/05/2022 1:51 AM [facility] The Urine Toxicology Screening Panel does not screen for Propoxyphene, Meprobamate, Carisoprodol, Trazodone, [id number] medications and/or volatiles (Acetone, Isopropanol, Methanol or Ethylene Glycol). Ethanol, Salicylate, Acetaminophen, Tricyclic Antidepressants and several therapeutic drugs may be individually assayed in serum or plasma specimen. Toxicology testing by the [facility] is an aid to medical diagnosis and treatment of patients. No documented chain of custody was maintained. Results are intended to be used for clinical purposes only. ? Ori Davis MD LAB - URINE CHEMISTR Y ORDERABLES Performing Organization Address [facility]/ZIP Co de Phone Number [facility] [address] [place] [address], [place] [phone] * LIPID PROFILE (10/04/2022 11:42 PM SCIENCE TECHNICIAN) Cholesterol Total 130 <200 mg/dL 10/05/2022 12:16 AM [facility] HDL 45 >40 mg/dL 10/05/2022 12:16 AM [facility] Comment: ATP III Classification of HDL Cholesterol: ? <40 mg/dL: ??Considered a major risk factor. ? >60 mg/dL: ??Considered a negative risk factor. ? LDL Calculated 67 <100 mg/dL 10/05/2022 12:16 AM [facility] Comment: ATP III Classification of LDL Cholesterol: ?<100 mg/dL: ??Optimal ? 100 - 129 mg/dL: ??Near Optimal/Above Optimal ? 130 - 159 mg/dL: ??Borderline High ? 160 - 189 mg/dL: ??High ?>190 mg/dL: ??Very High ? Triglycerides 89 <150 mg/dL 10/05/2022 12:16 AM [facility] Comment: ATP III Classification of Triglycerides: ?<150 mg/dL: ??Normal ? 150 - 199 mg/dL: ??Borderline High ? 200 - 400 mg/dL: ??High ?>500 mg/dL: ??Very High Blood BLOOD SPECIMEN / Unknown Venipuncture / Unknown 10/04/2022 11:42 PM SCIENCE TECHNICIAN 10/04/2022 11:49 PM SCIENCE TECHNICIAN Ori Davis MD LAB - CHEMISTRY SARAHI FIGUEROA Performing Organization Address City/[facility]/ZIP Co de Phone Number [facility] [address] [place] [address], [place] [phone] * BLOOD TYPE VERIFICATION (10/04/2022 5:26 PM SCIENCE TECHNICIAN) ABO Rh A POS 10/04/2022 5:5 6 PM SCIENCE TECHNICIAN [facility] BLOOD BANK LAB Blood Bank BLOOD SPECIMEN / Unknown Lab Venipuncture / Unknown 10/04/2022 5:26 PM SCIENCE TECHNICIAN 10/04/2022 5:29 PM SCIENCE TECHNICIAN Gladys Persaud MD LAB - BLOOD BANK ORD ERABLES [facility] BLOOD BANK LAB [address] [place] [address], [facility] [phone] * CT CHEST ABDOMEN PELVIS W CONT - Abdomen-pelvis trauma, blunt or penetrating (10/04/2022 4:14 PM SCIENCE TECHNICIAN) Anatomical Region Laterality Modality Chest, Abdomen, Pelvis Computed Tomography 10/04/2022 4:23 PM SCIENCE TECHNICIAN Impressions 10/04/2022 8:24 PM SCIENCE TECHNICIAN IMPRESSION: 1.Splenic laceration with moderate volume perisplenic hemorrhage. 2.Moderate volume blood products in the perihepatic region without overt evidence of liver laceration. 3.Blood products are seen in the right lower quadrant of the abdomen. Occult bowel injury in the setting of recent trauma cannot be excluded. Recommend serial abdominal exams. 4.Bilateral dependent, right greater than left consolidations which likely represent atelectasis however in the setting of recent trauma and rib fractures, developing pulmonary contusions cannot be excluded. 5.Mildly displaced left posterior sixth through eighth rib fractures. Of note, the sixth and eighth ribs appear to be fractured in [address]. 6.Thickening of the bilateral adrenal glands without surrounding fat stranding, likely nontraumatic. > Dictated by Chacho Helton MD (physician vice president) ISaul have personally reviewed and interpreted this examination/study. > Interpreting Provider: Saul Walden on 10/04/2022 8:24 PM Narrative 10/04/2022 8:24 PM SCIENCE TECHNICIAN PROCEDURE: ??CT CHEST ABDOMEN PELVIS W CONT, DATE/TIME OF EXAM: ??10/04/2022 4:17 PM, LOCATION ??[facility] INDICATION: Trauma ADDITIONAL CLINICAL INFORMATION: COMPARISON: None. TECHNIQUE: CT of the chest, abdomen and pelvis with IOPAMIDOL 76 % IV SOLN:100 mL intravenous contrast. Coronal and sagittal reformatted images were submitted. FINDINGS: Chest: Lower neck/axilla: Subcentimeter hypoattenuating nodules in the right thyroid lobe. There is no axillary lymphadenopathy. Mediastinum: There is no mediastinal or hilar lymphadenopathy. The trachea is midline and patent. Cardiac: The heart size is normal. No pericardial effusion or thickening. Coronary artery and aortic arch calcifications are noted. Pulmonary: Bilateral lower lobe predominant peribronchial thickening is noted. Bilateral dependent consolidations, right greater than left, likely representing atelectasis however in the setting of recent trauma developing pulmonary contusions cannot be excluded. There is no pleural effusion or pneumothorax. Calcified granulomas are seen at the bilateral lung bases. Cystic changes are noted at the bilateral lung apices. 4 mm subpleural nodule at the posterolateral aspect of the left upper lobe (series 5 image 46). Abdomen/pelvis: Hepatobiliary: The liver enhances homogeneously. The gallbladder surgically absent. Mild central intrahepatic biliary dilatation is noted. The common bile duct is dilated measuring approximately 1 cm on coronal images. Findings likely related to postcholecystectomy state. Moderate volume perihepatic blood products are noted. Pancreas: The pancreas enhances homogeneously. The pancreatic duct is prominent measuring approximately 4 mm, upper limits of normal. There is no peripancreatic fat stranding. Spleen: Ill-defined linear hypodensities at the anterior aspect of the spleen consistent with splenic laceration and moderate volume perisplenic hemorrhage. Adrenal glands: Adreniform thickening of the left adrenal gland without surrounding fat stranding. Thickening of the right adrenal gland without significant surrounding fat stranding. Kidneys: Bilateral kidneys enhance symmetrically without evidence of hydronephrosis. No radiopaque renal calculi are seen. Mild bilateral perinephric fat stranding is noted. GI: Mural thickening of the mid thoracic esophagus, likely due to decompression. Mild gastric distention is noted. No abnormally dilated loops of small bowel. Focal dilatation of the cecum measuring approximately 7.7 cm in maximal transaxial dimension, upper limits of normal. Colonic diverticulosis without evidence of diverticulitis. Peritoneum/retroperitoneum: There is no free intraperitoneal air. Blood products are seen along the ascending and descending colon extending to the bilateral pericolic gutters, likely extending caudally from the splenic laceration. Blood products are seen in the right lower quadrant of the abdomen (series 4 image 114). ??No significant mesenteric or retroperitoneal lymphadenopathy. Pelvis: The urinary bladder is adequately distended and appears unremarkable. Trace volume blood products are seen in the pelvis. There is no pelvic lymphadenopathy. Heterogeneous enhancing prostate measuring approximately 4 cm in maximal transaxial diameter with nonspecific calcifications noted. Vascular: Atherosclerotic calcifications of the aorta and its branch vessels. Bones: Mildly displaced rib fractures of the left sixth through eighth ribs. Of note the sixth and eighth ribs appear to be fractured in [address]. Multilevel degenerative changes are seen throughout the spine. Minimal anterior compression deformities in the lower thoracic spine. Laminectomy changes at L4-L5. 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 Moderate osteoarthritis of the bilateral hip joints. Ill-defined sclerotic lesion at the right posterior iliac bone. This osteopenia is noted. Soft tissues: Mild bilateral fat-containing inguinal hernias. Procedure Note Saul Walden MD - 10/04/2022 PROCEDURE: CT CHEST ABDOMEN PELVIS W CONT, DATE/TIME OF EXAM:10/04/2022 4:17 PM, LOCATION [facility] INDICATION: Trauma ADDITIONAL CLINICAL INFORMATION: COMPARISON: None. TECHNIQUE: CT of the chest, abdomen and pelvis with IOPAMIDOL 76 % IV SOLN:100 mL intravenous contrast. Coronal and sagittal reformattedimages were submitted. FINDINGS: Chest: Lower neck/axilla: Subcentimeter hypoattenuating nodules in the right thyroid lobe. There is no axillary lymphadenopathy. Mediastinum: There is no mediastinal or hilar lymphadenopathy. Thetrachea is midline and patent. Cardiac: The heart size is normal. No pericardial effusion orthickening. Coronary artery and aortic arch calcifications are noted. Pulmonary: Bilateral lower lobe predominant peribronchial thickening is noted. Bilateral dependent consolidations, right greater than left,likely representing atelectasis however in the setting of recent traumadeveloping pulmonary contusions cannot be excluded. There is no pleural effusion or pneumothorax. Calcified granulomas are seen at the bilateral lung bases. Cystic changes are noted at the bilateral lung apices. 4 mm subpleural nodule at the posterolateral aspect of the left upper lobe (series 5image 46). Abdomen/pelvis: Hepatobiliary: The liver enhances homogeneously. The gallbladdersurgically absent. Mild central intrahepatic biliary dilatation is noted. Thecommon bile duct is dilated measuring approximately 1 cm on coronal images. Findings likely related to postcholecystectomy state. Moderate volume perihepatic blood products are noted. Pancreas: The pancreas enhances homogeneously. The pancreatic duct is prominent measuring approximately 4 mm, upper limits of normal. There isno peripancreatic fat stranding. Spleen: Ill-defined linear hypodensities at the anterior aspect of the spleen consistent with splenic laceration and moderate volumeperisplenic hemorrhage. Adrenal glands: Adreniform thickening of the left adrenal gland without surrounding fat stranding. Thickening of the right adrenal gland without significant surrounding fat stranding. Kidneys: Bilateral kidneys enhance symmetrically without evidence of hydronephrosis. No radiopaque renal calculi are seen. Mild bilateral perinephric fat stranding is noted. GI: Mural thickening of the mid thoracic esophagus, likely due to decompression. Mild gastric distention is noted. No abnormally dilated loops of small bowel. Focal dilatation of the cecum measuringapproximately 7.7 cm in maximal transaxial dimension, upper limits of normal. Colonic diverticulosis without evidence of diverticulitis. Peritoneum/retroperitoneum: There is no free intraperitoneal air. Blood products are seen along the ascending and descending colon extending tothe bilateral pericolic gutters, likely extending caudally from the splenic laceration. Blood products are seen in the right lower quadrant of the abdomen (series 4 image 114). No significant mesenteric orretroperitoneal lymphadenopathy. Pelvis: The urinary bladder is adequately distended and appears unremarkable. Trace volume blood products are seen in the pelvis. Thereis no pelvic lymphadenopathy. Heterogeneous enhancing prostate measuring approximately 4 cm in maximal transaxial diameter with nonspecific calcifications noted. Vascular: Atherosclerotic calcifications of the aorta and its branch vessels. Bones: Mildly displaced rib fractures of the left sixth through eighth ribs. Of note the sixth and eighth ribs appear to be fractured in 2 separate places. Multilevel degenerative changes are seen throughout the spine. Minimal anterior compression deformities in the lower thoracic spine. Laminectomy changes at L4-L5. Severe osteoarthritis of thebilateral shoulder joints. Moderate osteoarthritis of the bilateral hip joints. Ill-defined sclerotic lesion at the right posterior iliac bone. This osteopenia is noted. Soft tissues: Mild bilateral fat-containing inguinal hernias. IMPRESSION: 1.Splenic laceration with moderate volume perisplenic hemorrhage. 2.Moderate volume blood products in the perihepatic region without overt evidence of liver laceration. 3.Blood products are seen in the right lower quadrant of the abdomen. Occult bowel injury in the setting of recent trauma cannot be excluded. Recommend serial abdominal exams. 4.Bilateral dependent, right greater than left consolidations whichlikely represent atelectasis however in the setting of recent trauma and rib fractures, developing pulmonary contusions cannot be excluded. 5.Mildly displaced left posterior sixth through eighth rib fractures. Of note, the sixth and eighth ribs appear to be fractured in 2 [address]. 6.Thickening of the bilateral adrenal glands without surrounding fat stranding, likely nontraumatic. > Dictated by Chacho Helton MD (physician vice president) Saul Webber have personally reviewed and interpreted this examination/study. > Interpreting Provider: Saul Walden on 10/04/2022 8:24 PM Ori Charly Davis MD CT ORDERABLES * CT LUMBAR SPINE WO CONTRAST - T/L-spine trauma, Spine fracture (10/04/2022 4:14 PM SCIENCE TECHNICIAN) Anatomical Region Laterality Modality Spine Computed Tomogra phy 10/04/2022 4:10 PM SCIENCE TECHNICIAN Impressions 10/04/2022 5:46 PM SCIENCE TECHNICIAN IMPRESSION: 1.No acute intracranial hemorrhage, midline shift, or significant mass effect. 2.Mild wedging of the T11-T12 vertebral bodies may be developmental or related to mild age-indeterminate compression fractures. Correlate with lower back pain, and if clinically indicated, MRI could be performed for further evaluation. Otherwise, no evidence of acute fracture in the cervical, thoracic, or lumbar spine. 3.Splenic hematoma is partially identified. Nondisplaced fractures of the left posterolateral fifth through seventh ribs are noted. For additional intra-abdominal and intrathoracic findings please see concurrently obtained CT chest abdomen pelvis dated 10/04/2022. Report dictated by Mane Jalloh MD (physician vice president). Gerard Webber MD have personally reviewed and interpreted this examination/study. > Interpreting Provider: Gerard Jj MD on 10/04/2022 5:46 PM Narrative 10/04/2022 5:46 PM SCIENCE TECHNICIAN PROCEDURE: ??CT HEAD WO CONTRAST, CT LUMBAR SPINE WO CONTRAST, CT THORACIC SPINE WO CONTRAST, CT CERVICAL SPINE WO CONTRAST, DATE/TIME OF EXAM: 10/04/2022 4:17 PM, LOCATION ??[facility] INDICATION: Trauma ADDITIONAL CLINICAL INFORMATION: Ordering Provider Reason For Exam: Technologist Note: Additional: EXAMINATION: 1.Computed tomography (CT) of the head without contrast 2.CT of the cervical spine without contrast 3.CT of the thoracic spine without contrast 4.CT of the lumbar spine without contrast HISTORY: Trauma TECHNIQUE: CT of the head and cervical spine was performed without contrast according to standard protocol. Reformatted axial, sagittal, and coronal images of the thoracic and lumbar spine were obtained by the technologist from a concurrently performed body CT and sent to the workstation for review. COMPARISON: None. FINDINGS: Head: No acute intra- or extra-axial fluid collections are identified. The ventricles are of normal size, shape, and morphology. The basilar cisterns are patent. No mass effect or midline shift is seen. The senior-white matter differentiation is normal. There is vascular calcification of the carotid siphons. No acute calvarial fracture is identified. The orbits appear normal. The paranasal sinuses are clear. The mastoid air cells are clear. Cerumen is noted in the left external auditory canal. No soft tissue abnormality is identified. Cervical spine: There is straightening of the usual cervical lordosis. Otherwise minimal grade 1 anterolisthesis of C2 on C3. Vertebral bodies are normal in height without evidence of acute fracture. Other than middle atlantoaxial joint osteoarthritis, the craniocervical junction appears normal. There is moderate multilevel degenerative disease which is most prominent at the mid to lower cervical spine. Posterior disc osteophyte complex causes mild central canal stenosis at C5-C6 and C6-C7. There is severe multilevel facet arthropathy predominantly of the upper cervical spine with osseous fusion of the right C2-C3 and left C3-C4 facets. There are varying degrees of advanced uncovertebral joint osteoarthritis. Moderate bilateral neural foraminal stenosis at C4-C5 and C5-C6. There is atherosclerotic calcification of the bilateral common carotid arteries, most prominent at the right carotid bifurcation. Emphysematous changes are noted within the bilateral lung apices. There is a subcentimeter low-attenuation nodule in the right lobe of thyroid gland. Thoracic spine: Gentle dextrocurvature of the thoracic spine. Vertebral bodies are normal in height without evidence of acute fracture. Mild wedging of the T11-T12 vertebral bodies may be developmental or related to mild age-indeterminate compression fractures. There is mild degenerative disc disease. Multilevel Schmorl's nodes are noted. No central canal stenosis is seen. There is mild facet osteoarthritis at multiple levels. No neural foraminal stenosis is seen. Splenic hematoma is partially identified. Nondisplaced fractures of the left posterolateral fifth through seventh ribs are noted. Lumbar spine: Postsurgical changes of prior L4 and L5 laminectomies. The alignment is normal. Vertebral bodies are normal in height without evidence of acute fracture. There is advanced degenerative disc disease. There is osseous fusion of L4-L5 and L5-S1 vertebral bodies. No significant central canal stenosis is seen. There is advanced facet osteoarthritis at multiple levels. No significant neural foraminal stenosis is seen. No soft tissue abnormality is identified. Procedure Note Gerard Jj MD - 10/04/2022 PROCEDURE: CT HEAD WO CONTRAST, CT LUMBAR SPINE WO CONTRAST, CTTHORACIC SPINE WO CONTRAST, CT CERVICAL SPINE WO CONTRAST, DATE/TIME OF EXAM: 10/04/2022 4:17 PM, LOCATION [facility] INDICATION: Trauma ADDITIONAL CLINICAL INFORMATION: Ordering Provider Reason For Exam: Technologist Note: Additional: EXAMINATION: 1.Computed tomography (CT) of the head without contrast 2.CT of the cervical spine without contrast 3.CT of the thoracic spine without contrast 4.CT of the lumbar spine without contrast HISTORY: Trauma TECHNIQUE: CT of the head and cervical spine was performed withoutcontrast according to standard protocol. Reformatted axial, sagittal, and coronal images of the thoracic and lumbar spine were obtained by thetechnologist from a concurrently performed body CT and sent to the workstation for review. COMPARISON: None. FINDINGS: Head: No acute intra- or extra-axial fluid collections are identified. The ventricles are of normal size, shape, and morphology. The basilarcisterns are patent. No mass effect or midline shift is seen. The senior-whitematter differentiation is normal. There is vascular calcification of thecarotid siphons. No acute calvarial fracture is identified. The orbits appear normal. The paranasal sinuses are clear. The mastoid air cells areclear. Cerumen is noted in the left external auditory canal. No soft tissue abnormality is identified. Cervical spine: There is straightening of the usual cervical lordosis. Otherwise minimal grade 1 anterolisthesis of C2 on C3. Vertebral bodies are normal inheight without evidence of acute fracture. Other than middle atlantoaxial joint osteoarthritis, the craniocervical junction appears normal. There is moderate multilevel degenerative disease which is most prominent at themid to lower cervical spine. Posterior disc osteophyte complex causes mild central canal stenosis at C5-C6 and C6-C7. There is severe multilevelfacet arthropathy predominantly of the upper cervical spine with osseousfusion of the right C2-C3 and left C3-C4 facets. There are varying degrees of advanced uncovertebral joint osteoarthritis. Moderate bilateral neural foraminal stenosis at C4-C5 and C5-C6. There is atherosclerotic calcification of the bilateral common carotid arteries, most prominentat the right carotid bifurcation. Emphysematous changes are noted withinthe bilateral lung apices. There is a subcentimeter low-attenuation nodulein the right lobe of thyroid gland. Thoracic spine: Gentle dextrocurvature of the thoracic spine. Vertebral bodies arenormal in height without evidence of acute fracture. Mild wedging of [id number] vertebral bodies may be developmental or related to mildage-indeterminate compression fractures. There is mild degenerative disc disease.Multilevel Schmorl's nodes are noted. No central canal stenosis is seen. There ismild facet osteoarthritis at multiple levels. No neural foraminal stenosis is seen. Splenic hematoma is partially identified. Nondisplaced fracturesof the left posterolateral fifth through seventh ribs are noted. Lumbar spine: Postsurgical changes of prior L4 and L5 laminectomies. The alignment is normal. Vertebral bodies are normal in height without evidence of acute fracture. There is advanced degenerative disc disease. There is osseous fusion of L4-L5 and L5-S1 vertebral bodies. No significant central canal stenosis is seen. There is advanced facet osteoarthritis at multiple levels. No significant neural foraminal stenosis is seen. No soft tissue abnormality is identified. IMPRESSION: 1.No acute intracranial hemorrhage, midline shift, or significant mass effect. 2.Mild wedging of the T11-T12 vertebral bodies may be developmental or related to mild age-indeterminate compression fractures. Correlate with lower back pain, and if clinically indicated, MRI could be performed for further evaluation. Otherwise, no evidence of acute fracture in the cervical, thoracic, or lumbar spine. 3.Splenic hematoma is partially identified. Nondisplaced fractures ofthe left posterolateral fifth through seventh ribs are noted. For additional intra-abdominal and intrathoracic findings please see concurrentlyobtained CT chest abdomen pelvis dated 10/04/2022. Report dictated by Mane Jalloh MD (physician vice president). Gerard Webber MD have personally reviewed and interpreted this examination/study. > Interpreting Provider: Gerard Jj MD on 10/04/2022 5:46 PM Authorizing Provider Result Bridget Davis MD CT ORDERABLES * CT THORACIC SPINE WO CONTRAST - T/L-spine trauma, spine fracture (10/04/2022 4:14 PM SCIENCE TECHNICIAN) Anatomical Region Laterality Modality Spine Computed Tomogra phy 10/04/2022 4:10 PM SCIENCE TECHNICIAN Impressions 10/04/2022 5:46 PM SCIENCE TECHNICIAN IMPRESSION: 1.No acute intracranial hemorrhage, midline shift, or significant mass effect. 2.Mild wedging of the T11-T12 vertebral bodies may be developmental or related to mild age-indeterminate compression fractures. Correlate with lower back pain, and if clinically indicated, MRI could be performed for further evaluation. Otherwise, no evidence of acute fracture in the cervical, thoracic, or lumbar spine. 3.Splenic hematoma is partially identified. Nondisplaced fractures of the left posterolateral fifth through seventh ribs are noted. For additional intra-abdominal and intrathoracic findings please see concurrently obtained CT chest abdomen pelvis dated 10/04/2022. Report dictated by Mane Jalloh MD (physician vice president). Gerard Webber MD have personally reviewed and interpreted this examination/study. > Interpreting Provider: Gearrd Jj MD on 10/04/2022 5:46 PM Narrative 10/04/2022 5:46 PM SCIENCE TECHNICIAN PROCEDURE: ??CT HEAD WO CONTRAST, CT LUMBAR SPINE WO CONTRAST, CT THORACIC SPINE WO CONTRAST, CT CERVICAL SPINE WO CONTRAST, DATE/TIME OF EXAM: 10/04/2022 4:17 PM, LOCATION ??[facility] INDICATION: Trauma ADDITIONAL CLINICAL INFORMATION: Ordering Provider Reason For Exam: Technologist Note: Additional: EXAMINATION: 1.Computed tomography (CT) of the head without contrast 2.CT of the cervical spine without contrast 3.CT of the thoracic spine without contrast 4.CT of the lumbar spine without contrast HISTORY: Trauma TECHNIQUE: CT of the head and cervical spine was performed without contrast according to standard protocol. Reformatted axial, sagittal, and coronal images of the thoracic and lumbar spine were obtained by the technologist from a concurrently performed body CT and sent to the workstation for review. COMPARISON: None. FINDINGS: Head: No acute intra- or extra-axial fluid collections are identified. The ventricles are of normal size, shape, and morphology. The basilar cisterns are patent. No mass effect or midline shift is seen. The senior-white matter differentiation is normal. There is vascular calcification of the carotid siphons. No acute calvarial fracture is identified. The orbits appear normal. The paranasal sinuses are clear. The mastoid air cells are clear. Cerumen is noted in the left external auditory canal. No soft tissue abnormality is identified. Cervical spine: There is straightening of the usual cervical lordosis. Otherwise minimal grade 1 anterolisthesis of C2 on C3. Vertebral bodies are normal in height without evidence of acute fracture. Other than middle atlantoaxial joint osteoarthritis, the craniocervical junction appears normal. There is moderate multilevel degenerative disease which is most prominent at the mid to lower cervical spine. Posterior disc osteophyte complex causes mild central canal stenosis at C5-C6 and C6-C7. There is severe multilevel facet arthropathy predominantly of the upper cervical spine with osseous fusion of the right C2-C3 and left C3-C4 facets. There are varying degrees of advanced uncovertebral joint osteoarthritis. Moderate bilateral neural foraminal stenosis at C4-C5 and C5-C6. There is atherosclerotic calcification of the bilateral common carotid arteries, most prominent at the right carotid bifurcation. Emphysematous changes are noted within the bilateral lung apices. There is a subcentimeter low-attenuation nodule in the right lobe of thyroid gland. Thoracic spine: Gentle dextrocurvature of the thoracic spine. Vertebral bodies are normal in height without evidence of acute fracture. Mild wedging of the T11-T12 vertebral bodies may be developmental or related to mild age-indeterminate compression fractures. There is mild degenerative disc disease. Multilevel Schmorl's nodes are noted. No central canal stenosis is seen. There is mild facet osteoarthritis at multiple levels. No neural foraminal stenosis is seen. Splenic hematoma is partially identified. Nondisplaced fractures of the left posterolateral fifth through seventh ribs are noted. Lumbar spine: Postsurgical changes of prior L4 and L5 laminectomies. The alignment is normal. Vertebral bodies are normal in height without evidence of acute fracture. There is advanced degenerative disc disease. There is osseous fusion of L4-L5 and L5-S1 vertebral bodies. No significant central canal stenosis is seen. There is advanced facet osteoarthritis at multiple levels. No significant neural foraminal stenosis is seen. No soft tissue abnormality is identified. Procedure Note Gerard Jj MD - 10/04/2022 PROCEDURE: CT HEAD WO CONTRAST, CT LUMBAR SPINE WO CONTRAST, CTTHORACIC SPINE WO CONTRAST, CT CERVICAL SPINE WO CONTRAST, DATE/TIME OF EXAM: 10/04/2022 4:17 PM, LOCATION [facility] INDICATION: Trauma ADDITIONAL CLINICAL INFORMATION: Ordering Provider Reason For Exam: Technologist Note: Additional: EXAMINATION: 1.Computed tomography (CT) of the head without contrast 2.CT of the cervical spine without contrast 3.CT of the thoracic spine without contrast 4.CT of the lumbar spine without contrast HISTORY: Trauma TECHNIQUE: CT of the head and cervical spine was performed withoutcontrast according to standard protocol. Reformatted axial, sagittal, and coronal images of the thoracic and lumbar spine were obtained by thetechnologist from a concurrently performed body CT and sent to the workstation for review. COMPARISON: None. FINDINGS: Head: No acute intra- or extra-axial fluid collections are identified. The ventricles are of normal size, shape, and morphology. The basilarcisterns are patent. No mass effect or midline shift is seen. The senior-whitematter differentiation is normal. There is vascular calcification of thecarotid siphons. No acute calvarial fracture is identified. The orbits appear normal. The paranasal sinuses are clear. The mastoid air cells areclear. Cerumen is noted in the left external auditory canal. No soft tissue abnormality is identified. Cervical spine: There is straightening of the usual cervical lordosis. Otherwise minimal grade 1 anterolisthesis of C2 on C3. Vertebral bodies are normal inheight without evidence of acute fracture. Other than middle atlantoaxial joint osteoarthritis, the craniocervical junction appears normal. There is moderate multilevel degenerative disease which is most prominent at themid to lower cervical spine. Posterior disc osteophyte complex causes mild central canal stenosis at C5-C6 and C6-C7. There is severe multilevelfacet arthropathy predominantly of the upper cervical spine with osseousfusion of the right C2-C3 and left C3-C4 facets. There are varying degrees of advanced uncovertebral joint osteoarthritis. Moderate bilateral neural foraminal stenosis at C4-C5 and C5-C6. There is atherosclerotic calcification of the bilateral common carotid arteries, most prominentat the right carotid bifurcation. Emphysematous changes are noted withinthe bilateral lung apices. There is a subcentimeter low-attenuation nodulein the right lobe of thyroid gland. Thoracic spine: Gentle dextrocurvature of the thoracic spine. Vertebral bodies arenormal in height without evidence of acute fracture. Mild wedging of [id number] vertebral bodies may be developmental or related to mildage-indeterminate compression fractures. There is mild degenerative disc disease.Multilevel Schmorl's nodes are noted. No central canal stenosis is seen. There ismild facet osteoarthritis at multiple levels. No neural foraminal stenosis is seen. Splenic hematoma is partially identified. Nondisplaced fracturesof the left posterolateral fifth through seventh ribs are noted. Lumbar spine: Postsurgical changes of prior L4 and L5 laminectomies. The alignment is normal. Vertebral bodies are normal in height without evidence of acute fracture. There is advanced degenerative disc disease. There is osseous fusion of L4-L5 and L5-S1 vertebral bodies. No significant central canal stenosis is seen. There is advanced facet osteoarthritis at multiple levels. No significant neural foraminal stenosis is seen. No soft tissue abnormality is identified. IMPRESSION: 1.No acute intracranial hemorrhage, midline shift, or significant mass effect. 2.Mild wedging of the T11-T12 vertebral bodies may be developmental or related to mild age-indeterminate compression fractures. Correlate with lower back pain, and if clinically indicated, MRI could be performed for further evaluation. Otherwise, no evidence of acute fracture in the cervical, thoracic, or lumbar spine. 3.Splenic hematoma is partially identified. Nondisplaced fractures ofthe left posterolateral fifth through seventh ribs are noted. For additional intra-abdominal and intrathoracic findings please see concurrentlyobtained CT chest abdomen pelvis dated 10/04/2022. Report dictated by Mane Jalloh MD (physician vice president). I, Gerard Jj MD have personally reviewed and interpreted this examination/study. > Interpreting Provider: Gerard Jj MD on 10/04/2022 5:46 PM Ori Davis MD CT ORDERABLES * CT CERVICAL SPINE WO CONTRAST - C-Spine Trauma, Spine fracture (10/04/2022 4:14 PM SCIENCE TECHNICIAN) Anatomical Region Laterality Modality Spine Computed Tomogra phy 10/04/2022 4:10 PM SCIENCE TECHNICIAN Impressions 10/04/2022 5:46 PM SCIENCE TECHNICIAN IMPRESSION: 1.No acute intracranial hemorrhage, midline shift, or significant mass effect. 2.Mild wedging of the T11-T12 vertebral bodies may be developmental or related to mild age-indeterminate compression fractures. Correlate with lower back pain, and if clinically indicated, MRI could be performed for further evaluation. Otherwise, no evidence of acute fracture in the cervical, thoracic, or lumbar spine. 3.Splenic hematoma is partially identified. Nondisplaced fractures of the left posterolateral fifth through seventh ribs are noted. For additional intra-abdominal and intrathoracic findings please see concurrently obtained CT chest abdomen pelvis dated 10/04/2022. Report dictated by Mane Jalloh MD (physician vice president). I, Gerard Jj MD have personally reviewed and interpreted this examination/study. > Interpreting Provider: Gerard Jj MD on 10/04/2022 5:46 PM Narrative 10/04/2022 5:46 PM SCIENCE TECHNICIAN PROCEDURE: ??CT HEAD WO CONTRAST, CT LUMBAR SPINE WO CONTRAST, CT THORACIC SPINE WO CONTRAST, CT CERVICAL SPINE WO CONTRAST, DATE/TIME OF EXAM: 10/04/2022 4:17 PM, LOCATION ??[facility] INDICATION: Trauma ADDITIONAL CLINICAL INFORMATION: Ordering Provider Reason For Exam: Technologist Note: Additional: EXAMINATION: 1.Computed tomography (CT) of the head without contrast 2.CT of the cervical spine without contrast 3.CT of the thoracic spine without contrast 4.CT of the lumbar spine without contrast HISTORY: Trauma TECHNIQUE: CT of the head and cervical spine was performed without contrast according to standard protocol. Reformatted axial, sagittal, and coronal images of the thoracic and lumbar spine were obtained by the technologist from a concurrently performed body CT and sent to the workstation for review. COMPARISON: None. FINDINGS: Head: No acute intra- or extra-axial fluid collections are identified. The ventricles are of normal size, shape, and morphology. The basilar cisterns are patent. No mass effect or midline shift is seen. The senior-white matter differentiation is normal. There is vascular calcification of the carotid siphons. No acute calvarial fracture is identified. The orbits appear normal. The paranasal sinuses are clear. The mastoid air cells are clear. Cerumen is noted in the left external auditory canal. No soft tissue abnormality is identified. Cervical spine: There is straightening of the usual cervical lordosis. Otherwise minimal grade 1 anterolisthesis of C2 on C3. Vertebral bodies are normal in height without evidence of acute fracture. Other than middle atlantoaxial joint osteoarthritis, the craniocervical junction appears normal. There is moderate multilevel degenerative disease which is most prominent at the mid to lower cervical spine. Posterior disc osteophyte complex causes mild central canal stenosis at C5-C6 and C6-C7. There is severe multilevel facet arthropathy predominantly of the upper cervical spine with osseous fusion of the right C2-C3 and left C3-C4 facets. There are varying degrees of advanced uncovertebral joint osteoarthritis. Moderate bilateral neural foraminal stenosis at C4-C5 and C5-C6. There is atherosclerotic calcification of the bilateral common carotid arteries, most prominent at the right carotid bifurcation. Emphysematous changes are noted within the bilateral lung apices. There is a subcentimeter low-attenuation nodule in the right lobe of thyroid gland. Thoracic spine: Gentle dextrocurvature of the thoracic spine. Vertebral bodies are normal in height without evidence of acute fracture. Mild wedging of the T11-T12 vertebral bodies may be developmental or related to mild age-indeterminate compression fractures. There is mild degenerative disc disease. Multilevel Schmorl's nodes are noted. No central canal stenosis is seen. There is mild facet osteoarthritis at multiple levels. No neural foraminal stenosis is seen. Splenic hematoma is partially identified. Nondisplaced fractures of the left posterolateral fifth through seventh ribs are noted. Lumbar spine: Postsurgical changes of prior L4 and L5 laminectomies. The alignment is normal. Vertebral bodies are normal in height without evidence of acute fracture. There is advanced degenerative disc disease. There is osseous fusion of L4-L5 and L5-S1 vertebral bodies. No significant central canal stenosis is seen. There is advanced facet osteoarthritis at multiple levels. No significant neural foraminal stenosis is seen. No soft tissue abnormality is identified. Procedure Note Gerard Jj MD - 10/04/2022 PROCEDURE: CT HEAD WO CONTRAST, CT LUMBAR SPINE WO CONTRAST, CTTHORACIC SPINE WO CONTRAST, CT CERVICAL SPINE WO CONTRAST, DATE/TIME OF EXAM: 10/04/2022 4:17 PM, LOCATION [facility] INDICATION: Trauma ADDITIONAL CLINICAL INFORMATION: Ordering Provider Reason For Exam: Technologist Note: Additional: EXAMINATION: 1.Computed tomography (CT) of the head without contrast 2.CT of the cervical spine without contrast 3.CT of the thoracic spine without contrast 4.CT of the lumbar spine without contrast HISTORY: Trauma TECHNIQUE: CT of the head and cervical spine was performed withoutcontrast according to standard protocol. Reformatted axial, sagittal, and coronal images of the thoracic and lumbar spine were obtained by thetechnologist from a concurrently performed body CT and sent to the workstation for review. COMPARISON: None. FINDINGS: Head: No acute intra- or extra-axial fluid collections are identified. The ventricles are of normal size, shape, and morphology. The basilarcisterns are patent. No mass effect or midline shift is seen. The senior-whitematter differentiation is normal. There is vascular calcification of thecarotid siphons. No acute calvarial fracture is identified. The orbits appear normal. The paranasal sinuses are clear. The mastoid air cells areclear. Cerumen is noted in the left external auditory canal. No soft tissue abnormality is identified. Cervical spine: There is straightening of the usual cervical lordosis. Otherwise minimal grade 1 anterolisthesis of C2 on C3. Vertebral bodies are normal inheight without evidence of acute fracture. Other than middle atlantoaxial joint osteoarthritis, the craniocervical junction appears normal. There is moderate multilevel degenerative disease which is most prominent at themid to lower cervical spine. Posterior disc osteophyte complex causes mild central canal stenosis at C5-C6 and C6-C7. There is severe multilevelfacet arthropathy predominantly of the upper cervical spine with osseousfusion of the right C2-C3 and left C3-C4 facets. There are varying degrees of advanced uncovertebral joint osteoarthritis. Moderate bilateral neural foraminal stenosis at C4-C5 and C5-C6. There is atherosclerotic calcification of the bilateral common carotid arteries, most prominentat the right carotid bifurcation. Emphysematous changes are noted withinthe bilateral lung apices. There is a subcentimeter low-attenuation nodulein the right lobe of thyroid gland. Thoracic spine: Gentle dextrocurvature of the thoracic spine. Vertebral bodies arenormal in height without evidence of acute fracture. Mild wedging of [id number] vertebral bodies may be developmental or related to mildage-indeterminate compression fractures. There is mild degenerative disc disease.Multilevel Schmorl's nodes are noted. No central canal stenosis is seen. There ismild facet osteoarthritis at multiple levels. No neural foraminal stenosis is seen. Splenic hematoma is partially identified. Nondisplaced fracturesof the left posterolateral fifth through seventh ribs are noted. Lumbar spine: Postsurgical changes of prior L4 and L5 laminectomies. The alignment is normal. Vertebral bodies are normal in height without evidence of acute fracture. There is advanced degenerative disc disease. There is osseous fusion of L4-L5 and L5-S1 vertebral bodies. No significant central canal stenosis is seen. There is advanced facet osteoarthritis at multiple levels. No significant neural foraminal stenosis is seen. No soft tissue abnormality is identified. IMPRESSION: 1.No acute intracranial hemorrhage, midline shift, or significant mass effect. 2.Mild wedging of the T11-T12 vertebral bodies may be developmental or related to mild age-indeterminate compression fractures. Correlate with lower back pain, and if clinically indicated, MRI could be performed for further evaluation. Otherwise, no evidence of acute fracture in the cervical, thoracic, or lumbar spine. 3.Splenic hematoma is partially identified. Nondisplaced fractures ofthe left posterolateral fifth through seventh ribs are noted. For additional intra-abdominal and intrathoracic findings please see concurrentlyobtained CT chest abdomen pelvis dated 10/04/2022. Report dictated by Mane Jalloh MD (physician vice president). I, Gerard Jj MD have personally reviewed and interpreted this examination/study. > Interpreting Provider: Gerard Jj MD on 10/04/2022 5:46 PM Ori [address] MD CT ORDERABLES * CT HEAD WO CONTRAST - Head Trauma, CSF leak, mental status changes (10/04/2022 4:14 PM SCIENCE TECHNICIAN) Anatomical Region Laterality Modality Head Computed Tomogra phy 10/04/2022 4:10 PM SCIENCE TECHNICIAN Impressions 10/04/2022 5:46 PM SCIENCE TECHNICIAN IMPRESSION: 1.No acute intracranial hemorrhage, midline shift, or significant mass effect. 2.Mild wedging of the T11-T12 vertebral bodies may be developmental or related to mild age-indeterminate compression fractures. Correlate with lower back pain, and if clinically indicated, MRI could be performed for further evaluation. Otherwise, no evidence of acute fracture in the cervical, thoracic, or lumbar spine. 3.Splenic hematoma is partially identified. Nondisplaced fractures of the left posterolateral fifth through seventh ribs are noted. For additional intra-abdominal and intrathoracic findings please see concurrently obtained CT chest abdomen pelvis dated 10/04/2022. Report dictated by Mane Jalloh MD (physician vice president). I, Gerard Jj MD have personally reviewed and interpreted this examination/study. > Interpreting Provider: Gerard Jj MD on 10/04/2022 5:46 PM Narrative 10/04/2022 5:46 PM SCIENCE TECHNICIAN PROCEDURE: ??CT HEAD WO CONTRAST, CT LUMBAR SPINE WO CONTRAST, CT THORACIC SPINE WO CONTRAST, CT CERVICAL SPINE WO CONTRAST, DATE/TIME OF EXAM: 10/04/2022 4:17 PM, LOCATION ??[facility] INDICATION: Trauma ADDITIONAL CLINICAL INFORMATION: Ordering Provider Reason For Exam: Technologist Note: Additional: EXAMINATION: 1.Computed tomography (CT) of the head without contrast 2.CT of the cervical spine without contrast 3.CT of the thoracic spine without contrast 4.CT of the lumbar spine without contrast HISTORY: Trauma TECHNIQUE: CT of the head and cervical spine was performed without contrast according to standard protocol. Reformatted axial, sagittal, and coronal images of the thoracic and lumbar spine were obtained by the technologist from a concurrently performed body CT and sent to the workstation for review. COMPARISON: None. FINDINGS: Head: No acute intra- or extra-axial fluid collections are identified. The ventricles are of normal size, shape, and morphology. The basilar cisterns are patent. No mass effect or midline shift is seen. The senior-white matter differentiation is normal. There is vascular calcification of the carotid siphons. No acute calvarial fracture is identified. The orbits appear normal. The paranasal sinuses are clear. The mastoid air cells are clear. Cerumen is noted in the left external auditory canal. No soft tissue abnormality is identified. Cervical spine: There is straightening of the usual cervical lordosis. Otherwise minimal grade 1 anterolisthesis of C2 on C3. Vertebral bodies are normal in height without evidence of acute fracture. Other than middle atlantoaxial joint osteoarthritis, the craniocervical junction appears normal. There is moderate multilevel degenerative disease which is most prominent at the mid to lower cervical spine. Posterior disc osteophyte complex causes mild central canal stenosis at C5-C6 and C6-C7. There is severe multilevel facet arthropathy predominantly of the upper cervical spine with osseous fusion of the right C2-C3 and left C3-C4 facets. There are varying degrees of advanced uncovertebral joint osteoarthritis. Moderate bilateral neural foraminal stenosis at C4-C5 and C5-C6. There is atherosclerotic calcification of the bilateral common carotid arteries, most prominent at the right carotid bifurcation. Emphysematous changes are noted within the bilateral lung apices. There is a subcentimeter low-attenuation nodule in the right lobe of thyroid gland. Thoracic spine: Gentle dextrocurvature of the thoracic spine. Vertebral bodies are normal in height without evidence of acute fracture. Mild wedging of the T11-T12 vertebral bodies may be developmental or related to mild age-indeterminate compression fractures. There is mild degenerative disc disease. Multilevel Schmorl's nodes are noted. No central canal stenosis is seen. There is mild facet osteoarthritis at multiple levels. No neural foraminal stenosis is seen. Splenic hematoma is partially identified. Nondisplaced fractures of the left posterolateral fifth through seventh ribs are noted. Lumbar spine: Postsurgical changes of prior L4 and L5 laminectomies. The alignment is normal. Vertebral bodies are normal in height without evidence of acute fracture. There is advanced degenerative disc disease. There is osseous fusion of L4-L5 and L5-S1 vertebral bodies. No significant central canal stenosis is seen. There is advanced facet osteoarthritis at multiple levels. No significant neural foraminal stenosis is seen. No soft tissue abnormality is identified. Procedure Note Gerard Jj MD - 10/04/2022 PROCEDURE: CT HEAD WO CONTRAST, CT LUMBAR SPINE WO CONTRAST, CTTHORACIC SPINE WO CONTRAST, CT CERVICAL SPINE WO CONTRAST, DATE/TIME OF EXAM: 10/04/2022 4:17 PM, LOCATION [facility] INDICATION: Trauma ADDITIONAL CLINICAL INFORMATION: Ordering Provider Reason For Exam: Technologist Note: Additional: EXAMINATION: 1.Computed tomography (CT) of the head without contrast 2.CT of the cervical spine without contrast 3.CT of the thoracic spine without contrast 4.CT of the lumbar spine without contrast HISTORY: Trauma TECHNIQUE: CT of the head and cervical spine was performed withoutcontrast according to standard protocol. Reformatted axial, sagittal, and coronal images of the thoracic and lumbar spine were obtained by thetechnologist from a concurrently performed body CT and sent to the workstation for review. COMPARISON: None. FINDINGS: Head: No acute intra- or extra-axial fluid collections are identified. The ventricles are of normal size, shape, and morphology. The basilarcisterns are patent. No mass effect or midline shift is seen. The senior-whitematter differentiation is normal. There is vascular calcification of thecarotid siphons. No acute calvarial fracture is identified. The orbits appear normal. The paranasal sinuses are clear. The mastoid air cells areclear. Cerumen is noted in the left external auditory canal. No soft tissue abnormality is identified. Cervical spine: There is straightening of the usual cervical lordosis. Otherwise minimal grade 1 anterolisthesis of C2 on C3. Vertebral bodies are normal inheight without evidence of acute fracture. Other than middle atlantoaxial joint osteoarthritis, the craniocervical junction appears normal. There is moderate multilevel degenerative disease which is most prominent at themid to lower cervical spine. Posterior disc osteophyte complex causes mild central canal stenosis at C5-C6 and C6-C7. There is severe multilevelfacet arthropathy predominantly of the upper cervical spine with osseousfusion of the right C2-C3 and left C3-C4 facets. There are varying degrees of advanced uncovertebral joint osteoarthritis. Moderate bilateral neural foraminal stenosis at C4-C5 and C5-C6. There is atherosclerotic calcification of the bilateral common carotid arteries, most prominentat the right carotid bifurcation. Emphysematous changes are noted withinthe bilateral lung apices. There is a subcentimeter low-attenuation nodulein the right lobe of thyroid gland. Thoracic spine: Gentle dextrocurvature of the thoracic spine. Vertebral bodies arenormal in height without evidence of acute fracture. Mild wedging of [id number] vertebral bodies may be developmental or related to mildage-indeterminate compression fractures. There is mild degenerative disc disease.Multilevel Schmorl's nodes are noted. No central canal stenosis is seen. There ismild facet osteoarthritis at multiple levels. No neural foraminal stenosis is seen. Splenic hematoma is partially identified. Nondisplaced fracturesof the left posterolateral fifth through seventh ribs are noted. Lumbar spine: Postsurgical changes of prior L4 and L5 laminectomies. The alignment is normal. Vertebral bodies are normal in height without evidence of acute fracture. There is advanced degenerative disc disease. There is osseous fusion of L4-L5 and L5-S1 vertebral bodies. No significant central canal stenosis is seen. There is advanced facet osteoarthritis at multiple levels. No significant neural foraminal stenosis is seen. No soft tissue abnormality is identified. IMPRESSION: 1.No acute intracranial hemorrhage, midline shift, or significant mass effect. 2.Mild wedging of the T11-T12 vertebral bodies may be developmental or related to mild age-indeterminate compression fractures. Correlate with lower back pain, and if clinically indicated, MRI could be performed for further evaluation. Otherwise, no evidence of acute fracture in the cervical, thoracic, or lumbar spine. 3.Splenic hematoma is partially identified. Nondisplaced fractures ofthe left posterolateral fifth through seventh ribs are noted. For additional intra-abdominal and intrathoracic findings please see concurrentlyobtained CT chest abdomen pelvis dated 10/04/2022. Report dictated by Mane Jalloh MD (physician vice president). Gerard Webber MD have personally reviewed and interpreted this examination/study. > Interpreting Provider: Gerard Jj MD on 10/04/2022 5:46 PM [address] MD CT ORDERABLES * XR PELVIS 1 OR 2VW (10/04/2022 4:02 PM SCIENCE TECHNICIAN) Anatomical Region Laterality Modality Pelvis Radiographic Tawana ging 10/04/2022 3:38 PM SCIENCE TECHNICIAN Impressions 10/04/2022 4:04 PM SCIENCE TECHNICIAN IMPRESSION: No acute fracture identified. Report dictated by Mane Jalloh MD (physician vice president). CASEY Webber MD have personally reviewed and interpreted this examination/study. > Interpreting Provider: CASEY MUÑOZ MD on 10/04/2022 4:04 PM Narrative 10/04/2022 4:04 PM SCIENCE TECHNICIAN PROCEDURE: ??XR PELVIS 1 OR 2VW, DATE/TIME OF EXAM: ??10/04/2022 4:03 PM, LOCATION ??[facility] INDICATION: Trauma Fracture suspected ADDITIONAL CLINICAL INFORMATION: Ordering Provider Reason For Exam: Technologist Note: Additional: COMPARISON: None. FINDINGS: No acute fracture is identified. The femoral heads appear well-seated within their respective acetabula. The pubic symphysis is intact. Mild, right greater than left, hip osteoarthritis is present. The sacroiliac joints are normal. Multiple clips superimpose the left femoral lesser trochanter. Procedure Note Casey Muñoz MD - 10/04/2022 PROCEDURE: XR PELVIS 1 OR 2VW, DATE/TIME OF EXAM: 10/04/2022 4:03 PM, LOCATION [facility] INDICATION: Trauma Fracture suspected ADDITIONAL CLINICAL INFORMATION: Ordering Provider Reason For Exam: Technologist Note: Additional: COMPARISON: None. FINDINGS: No acute fracture is identified. The femoral heads appear well-seated within their respective acetabula. The pubic symphysis is intact. Mild, right greater than left, hip osteoarthritis is present. The sacroiliac joints are normal. Multiple clips superimpose the left femoral lesser trochanter. IMPRESSION: No acute fracture identified. Report dictated by Mane Jalloh MD (physician vice president). I, CASEY MUÑOZ MD have personally reviewed and interpreted this examination/study. > Interpreting Provider: CASEY MUÑOZ MD on 10/04/2022 4:04 PM Ori Davis MD DIAGNOSTIC IMAGING O RDERABLES * PTT [facility] (10/04/2022 3:34 PM SCIENCE TECHNICIAN) APTT 25.7 23.0 - 38.4 Seconds 10/04/2022 4:00 PM SCIENCE TECHNICIAN [facility] Comment:Suggested therapeuti c range for full dose I.V. unfractionated heparin therapy for venous thromboembolism is 71 to 109 seconds. Blood BLOOD SPECIMEN / Unknown Venipuncture / Unknown 10/04/2022 3:34 PM SCIENCE TECHNICIAN 10/04/2022 3:38 PM SCIENCE TECHNICIAN Ori Davis MD LAB - COAGULATION OR DERABLES [facility] [address] [place] [address], [facility] [phone] * (ABNORMAL) PT-INR [facility] (10/04/2022 3:34 PM SCIENCE TECHNICIAN) [facility] PT 15.6(H) 12.1 - 14.8 Seconds 10/04/2022 4:00 PM SCIENCE TECHNICIAN [facility] INR 1.2 See Comment 10/04/2022 4:00 PM [facility] Comment:The suggested therap eutic range for standard coumadin (warfarin) therapy is an INR of 2.0-3.0. For high-risk patients (Mechanical Mitral Valve Prosthesis, etc.), the suggested prophylactic therapeutic range is an INR of 2.5-3.5. Blood BLOOD SPECIMEN / Unknown Venipuncture / Unknown 10/04/2022 3:34 PM SCIENCE TECHNICIAN 10/04/2022 3:38 PM SCIENCE TECHNICIAN Ori Davis MD LAB - COAGULATION OR DERABLES [address] [address], [facility] [phone] * TYPE + SCREEN PANEL (10/04/2022 3:34 PM SCIENCE TECHNICIAN) [facility] Antibody Screen NEG 4:19 PM SCIENCE TECHNICIAN [facility] ABO Rh A POS 10/04/2022 4:19 PM SCIENCE TECHNICIAN [facility] Blood Bank BLOOD SPECIMEN / Unknown Venipuncture / Unknown 10/04/2022 3:34 PM SCIENCE TECHNICIAN 10/04/2022 3:38 PM SCIENCE TECHNICIAN rOi Davis MD LAB - BLOOD BANK ORD ERABLES [facility] [address] [place] [id number], [facility] [phone] * (ABNORMAL) RETIC COUNT (10/04/2022 3:34 PM SCIENCE TECHNICIAN) [facility] Reticulocyte % 2.4 0.4 - 2.5 % 10/04/2022 3:41 PM SCIENCE TECHNICIAN [facility] Reticulocyte Absolute 0.0634 0.0200 - 0.1300 10? 6 /uL 10/04/2022 3:41 PM [facility] Reticulocyte Immature Fractionated 31.3(H) 0.9 - 14.3 % 10/04/2022 3:41 PM [facility] Hemoglobin Retic 35.9 27.8 - 36.8 pg 10/04/2022 3:41 PM [facility] Blood BLOOD SPECIMEN / Unknown Venipuncture / Unknown 10/04/2022 3:34 PM SCIENCE TECHNICIAN 10/04/2022 3:38 PM SCIENCE TECHNICIAN Ori Davis MD LAB - HEMATOLOGY ORD ERABLES [facility] [address] [place] [phone], [facility] [phone] * (ABNORMAL) CBC W AUTO DIFFERENTIAL (10/04/2022 3:34 PM SCIENCE TECHNICIAN) WBC 13.3(H) 3.5 - 10.5 10? 3 /uL 10/04/2022 3:41 PM [facility] RBC 2.64(L) 4.30 - 5.70 10? 6 /uL 10/04/2022 3:41 PM [facility] Hemoglobin 8.4(L) 12.0 - 17.6 g/dL 10/04/2022 3:41 PM [facility] Hematocrit 25.2(L) 35.2 - 51.7 % 10/04/2022 3:41 PM [facility] MCV 95.5 80.7 - 98.3 fL 10/04/2022 3:41 PM [facility] MCH 31.8 26.7 - 34.0 pg 10/04/2022 3:41 PM [facility] MCHC 33.3 30.8 - 35.9 g/dL 10/04/2022 3:41 PM [facility] RDW-SD 46.1 36.0 - 50.0 fL 10/04/2022 3:41 PM [facility] RDW-CV 13.2 11.2 - 14.8 % 10/04/2022 3:41 PM [facility] Platelet Count 192 150 - 400 10? 3 /uL 10/04/2022 3:41 PM [facility] MPV 10.5 9.4 - 12.9 fL 10/04/2022 3:41 PM [facility] nRBC Absolute 0.00 0 10? 3 /uL 10/04/2022 3:41 PM [facility] nRBC Auto 0.0 0 /100 WBC 10/04/2022 3:41 PM [facility] Neutrophils % 77.1(H) 35.0 - 70.0 % 10/04/2022 3:41 PM [facility] Lymphocytes % 11.1(L) 20.0 - 43.0 % 10/04/2022 3:41 PM [facility] Monocytes % 11.1 5.0 - 13.0 % 10/04/2022 3:41 PM [facility] Eosinophils % 0.0 0.0 - 6.0 % 10/04/2022 3:41 PM [facility] Basophil % 0.1 0.0 - 2.0 % 10/04/2022 3:41 PM [facility] Neutrophils Absolute 10.26(H) 1.60 - 7.00 10? 3 /uL 10/04/2022 3:41 PM [facility] Lymphocyte Absolute 1.48 1.10 - 3.90 10? 3 /uL 10/04/2022 3:41 PM [facility] Monocytes Absolute 1.48(H) 0.26 - 1.07 10? 3 /uL 10/04/2022 3:41 PM [facility] Eosinophils Absolute 0.00 0.00 - 0.47 10? 3 /uL 10/04/2022 3:41 PM [facility] Basophils Absolute 0.01 0.00 - 0.08 10? 3 /uL 10/04/2022 3:41 PM [facility] Immature Granulocytes % 0.6 0.0 - 1.0 % 10/04/2022 3:41 PM [facility] Immature Granulocytes Absolute 0.08 10/04/2022 3:41 PM [facility] Blood BLOOD SPECIMEN / Unknown Venipuncture / Unknown 10/04/2022 3:34 PM SCIENCE TECHNICIAN 10/04/2022 3:38 PM SCIENCE TECHNICIAN Ori Davis MD LAB - HEMATOLOGY ORD ERABLES Performing Organization Address City/[facility]/ZIP Co de Phone Number [address] [address], [facility] [phone] * LIPASE BLOOD (10/04/2022 3:34 PM SCIENCE TECHNICIAN) Lipase 12 8 - 78 U/L 10/04/2022 4:42 PM [facility] Comment:Lipase results from the [employer] Al[employer] analyzer may not be comparable with other methodologies. Blood BLOOD SPECIMEN / Unknown Venipuncture / Unknown 10/04/2022 3:34 PM SCIENCE TECHNICIAN 10/04/2022 4:27 PM SCIENCE TECHNICIAN Immanuel Fernandes MD LAB - CHEMISTRY SARAHI FIGUEROA Performing Organization Address [facility] Co de Phone Number [address] [address], [facility] [phone] * ALCOHOL ETHYL BLOOD (10/04/2022 3:34 PM SCIENCE TECHNICIAN) Ethanol (mg/dL) <10 <10 mg/dL 4:05 PM [facility] Ethanol Calculated (g/dL) <0.010 <=0.010 g/dL 10/04/2022 4:05 PM [facility] Blood BLOOD SPECIMEN / Unknown Venipuncture / Unknown 10/04/2022 3:34 PM SCIENCE TECHNICIAN 10/04/2022 3:38 PM SCIENCE TECHNICIAN Narrative [facility] - 10/04/2022 4:05 PM SCIENCE TECHNICIAN Ethanol Interp <10: None Detected. Depression of CONSTRUCTION FOREMAN: >100 mg/dl Potentially Critical: >250 mg/dl Potentially Fatal >400 mg/dl Ethanol in the patient's blood will contribute to the osmolar gap. Ethanol's contribution to the osmolar gap can be estimated by dividing the concentration of ethanol in mg/dL by 4.6. This test is for clinical use only and does not equal a NAKUL for legal purposes. Ori Davis MD LAB - CHEMISTRY ORDColin FIGUEROA Performing Organization Address [facility]/ZIP Co de Phone Number [facility] [address] [place] [address], [facility] [phone] * (ABNORMAL) IRON + TRANSFERRIN PANEL (10/04/2022 3:34 PM SCIENCE TECHNICIAN) Iron 26(L) 50 - 175 ug/dL 10/04/2022 4:43 PM SCIENCE TECHNICIAN [facility] Transferrin 210 174 - 382 mg/dL 10/04/2022 4:43 PM SCIENCE TECHNICIAN [facility] Transferrin Saturation % 10(L) 16 - 50 % 10/04/2022 4:43 PM SCIENCE TECHNICIAN [facility] TIBC Calculated 263 240 - 450 ug/dL 10/04/2022 4:43 PM SCIENCE TECHNICIAN [facility] Blood BLOOD SPECIMEN / Unknown Venipuncture / Unknown 10/04/2022 3:34 PM SCIENCE TECHNICIAN 10/04/2022 3:43 PM SCIENCE TECHNICIAN Ori Davis MD LAB - CHEMISTRY SARAHI FIGUEROA Performing Organization Address [facility]/ZIP Co de Phone Number [facility] [address] [place] [address], [facility] [phone] Care Teams Molding Room Supervisor Relationship Specialty Start Date End Date Fahad Desai MD PCP - General 11/25/16
--- OUTSIDE RECORDS SUMMARY | 2024-11-10 05:35 | XMS_ITS | Clinical Summary ---
Author Organization [facility] Address [address] [place] [address]. [place], [place] [address] [place] [id number] Care Team Providers Care Director Of Premium Seat Sales Name Role Phone Unavailable Primary Care Provider Unavailabl e Social History Tobacco Use Types Packs/Day Years Used Date Smoking Tobacco: Smoker, Current Status Unknown Sex and Gender Information Value Date Recorded Sex Assigned at Not on file Legal Sex Male 10:27 PM CDT Gender Identity Not on file Sexual Orientation Not on file Last Filed Vital Signs Vital Sign Reading Time Taken Comments Blood Pressure 132/72 11/21/2005 12:27 PM MAIL PROCESSING EQUIPMENT MECHANIC Pulse 60 11/21/2005 12:27 PM MAIL PROCESSING EQUIPMENT MECHANIC Temperature - - Respiratory Rate - - Oxygen Saturation - - Inhaled Oxygen Concentration - - Weight 91.6 kg (202 lb) 11/21/2005 12:27 PM MAIL PROCESSING EQUIPMENT MECHANIC Height 177.8 cm (5' 10 ) 11/21/2005 12:27 PM MAIL PROCESSING EQUIPMENT MECHANIC Body Mass Index 28.98 11/21/2005 12:27 PM MAIL PROCESSING EQUIPMENT MECHANIC Plan of Treatment Health Maintenance Due Date Last Done Comments Colorectal Cancer Screening Colonoscopy (10 Years) 1950 Hepatitis C 1969 DTaP, Tdap and Td Vaccines ( 1 - Tdap) 1970 Zoster Vaccines (1 of 2) 2001 Pneumococcal Vaccine: 65+ Ye ars (1 of 1 - PCV) 01/04/2016 COVID-19 Vaccine ( - 2023-2 5 season) 2024 Influenza Adult (#1) 2024 RSV Immunization or 60+ Years (1 - 1-dose 75+ series) 2026 Meningococcal B Vaccine Aged Out No l onger eligible based on patient's age to complete this topic Meningococcal Vaccine Aged Out No fallon patricia eligible based on patient's age to complete this topic RSV Immunizations Under 20 Months Aged Out No longer eligible based on patient's age to complete this topic Additional Health Concerns Infection Onset Date 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
--- OUTSIDE RECORDS SUMMARY | 2024-11-10 05:35 | XMS_ITS | Patient Health Record ---
Author Organization [facility] Address [address] [place], [place] [id number] Care Team Providers Care Cabana Attendant Name Role Phone Edmond Desai Unavailable Unavailable CORAL GARZA Unavailable [phone] Allergies No Known Allergies Reason For Referral No Information Vital Signs Height-cm 177.8 cm 05/11/2024 Weight-kg 87.09 kg 05/11/2024 Height 70 in 05/11/2024 Weight 192 lbs 05/11/2024 BMI 27.55 kg/m2 05/11/2024 Encounters Encounter Location Date Provider Diagnosis [address] [id number] 12/23/2023 CORAL GARZA Other hammer toe(s) (acquired), right foot M20.41 ; Tinea unguium B35.1 ; Other hammer toe(s) (acquired), left foot M20.42 ; Pain in right toe(s) M79.674 ; Pain in left toe(s) M79.675 and 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, bilateral legs I70.[address] [id number] 02/24/2024 CORAL GARZA Other hammer toe(s) (acquired), right foot M20.41 ; Tinea unguium B35.1 ; Other hammer toe(s) (acquired), left foot M20.42 ; Pain in right toe(s) M79.674 ; Pain in left toe(s) M79.675 and 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, bilateral legs I70.203 [facility] [place], [place] [address] [place], [place] [id number] 05/11/2024 CORAL GARZA Other hammer toe(s) (acquired), right foot M20.41 ; Tinea unguium B35.1 ; Other hammer toe(s) (acquired), left foot M20.42 ; Pain in right toe(s) M79.674 ; Pain in left toe(s) M79.675 and 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, bilateral legs I70.[address] [id number] 07/13/2024 CORAL GARZA Other hammer toe(s) (acquired), right foot M20.41 ; Tinea unguium B35.1 ; Other hammer toe(s) (acquired), left foot M20.42 ; Pain in right toe(s) M79.674 ; Pain in left toe(s) M79.675 and 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 12/23/2023 Tinea unguium (ICD-10 - B35.1) Aseptic debridement [...] educated regarding both OTC and prescription treatments. 02/24/2024 Tinea unguium (ICD-10 - B35.1) Aseptic debridement [...] educated regarding both OTC and prescription treatments. 02/24/2024 Other hammer toe(s) (acquired), right foot (ICD-10 [...] discussed, but conservative options were emphasized. 05/11/2024 Other hammer toe(s) (acquired), right foot [...] regarding both OTC and prescription treatments. 07/13/2024 Tinea unguium (ICD-10 - B35.1) Aseptic [...] prescription treatments. 07/13/2024 Other hammer toe(s) (acquired), right foot [...] discussed, but conservative options were emphasized. 09/21/2024 Other hammer toe(s) (acquired), right foot [...] (acquired), left foot (ICD-10 - M20.42) 07/13/2024 Other hammer toe(s) (acquired), left foot (ICD-10 - M20.42) 05/11/2024 Other hammer toe(s) (acquired), left foot (ICD-10 - M20.42) 02/24/2024 Other hammer toe(s) (acquired), left foot (ICD-10 - M20.42) 12/23/2023 Other hammer toe(s) (acquired), left foot (ICD-10 - M20.42) 12/23/2023 Pain in right toe(s) (ICD-10 - M79.674) 02/24/2024 Pain in right toe(s) (ICD-10 - M79.674) 05/11/2024 Pain in right toe(s) (ICD-10 - M79.674) 07/13/2024 Pain in right toe(s) (ICD-10 - M79.674) 09/21/2024 Pain in right toe(s) (ICD-10 - M79.674) 09/21/2024 Pain in left toe(s) (ICD-10 - M79.675) 07/13/2024 Pain in left toe(s) (ICD-10 - M79.675) 05/11/2024 Pain in left toe(s) (ICD-10 - M79.675) 02/24/2024 Pain in left toe(s) (ICD-10 - M79.675) 12/23/2023 Pain in left toe(s) (ICD-10 - M79.675) 02/24/2024 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, bilateral legs (ICD-10 - I70.203) Patient educated on risks and aggravating factors of PVD, including conservative treatment options such as a diet and exercise regimen to aid in slowing progression of vascular disease 12/23/2023 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, bilateral legs (ICD-10 - I70.203) Patient educated on risks and aggravating factors of PVD, including conservative treatment options such as a diet and exercise regimen to aid in slowing progression of vascular disease 07/13/2024 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, bilateral legs (ICD-10 - I70.203) Patient educated on risks and aggravating factors of PVD, including conservative treatment options such as a diet and exercise regimen to aid in slowing progression of vascular disease 05/11/2024 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, bilateral legs (ICD-10 - I70.203) Patient educated on risks and aggravating factors of PVD, including conservative treatment options such as a diet and exercise regimen to aid in slowing progression of vascular disease 09/21/2024 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, bilateral legs (ICD-10 - I70.203) Patient educated on risks and aggravating factors of PVD, including conservative treatment options such as a diet and exercise regimen to aid in slowing progression of vascular disease Plan Of Treatment Next Appt Details Provider Name:CORAL GARZA, 12/07/2024 01:10:00 PM, [address], [place], [id number], Insurance Providers Payer Name Payer Address Payer Phone Subscriber Number Group Number Insured Name Patient Relationship to Insured Coverage Start Date Coverage End Date Medicare Part [place] [address] [place] [address] [id number] Donato Serrano Self - patient is the insured [employer] [address] [place] [id number] [phone] [id number] Donato Serrano Self - patient is the insured
== END 2024-11-09 14:06 | disposition home or self-care (01) ==
LOC: CHSIMG 14:07
PROVIDERS: PCP Internal Medicine; Visit Provider Internal Medicine
DX: M79.642 Pain in left hand (principal); M79.641 Pain in right hand
CPT/HCPCS: 73130

== ENCOUNTER 2024-11-17 10:50 | Outpatient (CLI) | payer MEDICARE, OTHER, SELFPAY ==
--- NOTE | ~2024-11-17 | CT_ITS ---
EXAMINATION:CT lung screening DATE: 11/17/2024 11:11 INDICATION: Personal history of nicotine dependence. Smoker who quit 2 years ago with 54 pack year hi story. TECHNIQUE: Computed tomography (CT) of the chest was performed without intravenous contrast. Automate d exposure control and iterative reconstruction technique were employed. The dose-length product (DLP ) was 126.88 mGy-cm. COMPARISON: Chest CT 09/16/2023 FINDINGS: There is moderate emphysema. There is mild atelectasis bilaterally. Calcified pulmonary nod ules and calcified hilar lymph nodes are consistent with old granulomatous disease. There are a few s cattered nodules measuring up to 5 mm in right upper lobe. No pleural effusion. The heart size is nor mal. There are coronary artery calcifications. No pericardial effusion. Pneumobilia is noted, likely secondary to sphincterotomy. There are changes of cholecystectomy. There are old healed left rib frac tures. There is mild thoracic spondylosis. IMPRESSION: 1. Lung-RADS category 2: Benign appearance or behavior. Continue annual screening with noncontrast lo w-dose chest CT in 12 months. Reviewed, dictated and finalized at location A. MBLY LEAD PERSON IMPRESSION: 1. Lung-RADS category 2: Benign appearance or behavior. Continue annual screeni ng with noncontrast low-dose chest CT in 12 months.
--- OUTSIDE RECORDS SUMMARY | 2024-11-17 10:57 | XMS_ITS | Patient Health Summary ---
Author Organization [facility] SeeOn Address [address] [facility] [facility] [place] [address] Care Team Providers Care Printer Floor Covering Assistant Name Role Phone Fahad Desai MD Primary Care Provider [phone] Note from Formerly named [facility],non-owned Affiliates and Associated Physician Practices is amultiple site organization consisting of ambulatory clinics and hospital sitesin [place], [place], [place] and [place]. This disclosure is being madepursuant to the Care Everywhere program and may not contain all information available regarding this patient. Last updated 18.[facility] Allergies * Albumin(Anaphylaxis) -High Criticality * [...] Criticality * Tree Nuts(Anaphylaxis) -High Criticality * Stewart(Anaphylaxis) -High Criticality * Wheat Bran(Anaphylaxis) -High Criticality [...] every 12 hours * saline nasal spray ([place]; Baby [place]) 0.65 % nasal spray(Started 10/09/2022) Mcclellan 2 (two) sprays into each nostril every [...] Comments Blood Pressure 143/66 10/09/2022 8:57 AM CLOTH DESIZING RANGE OPERATOR CHIEF Pulse 80 10/09/2022 11:47 AM CLOTH DESIZING RANGE OPERATOR CHIEF Temperature 36.8 ??C (98.2 ??F) 10/09/2022 8:57 AM CS T Respiratory Rate 18 10/09/2022 11:47 AM CL[facility] DESIZING RANGE OPERATOR CHIEF Oxygen Saturation 100% 10/09/2022 11:47 AM CLOTH DESIZING RANGE OPERATOR CHIEF Inhaled Oxygen Concentration - - Weight 83.9 kg (185 lb) 10/04/2022 3:20 PM CLOTH DESIZING RANGE OPERATOR CHIEF Height 177.8 cm (5' 10 ) 10/04/2022 3:20 PM CLOTH DESIZING RANGE OPERATOR CHIEF Body Mass Index 26.54 10/04/2022 3:20 PM CLOTH DESIZING RANGE OPERATOR CHIEF Procedures * CARDIAC EKG ORDER(Performed 11/04/2022) * [...] * CARDIAC EKG ORDER (11/04/2022 12:17 PM CL[facility] DESIZING RANGE OPERATOR CHIEF) Only the most recent of4 resultswithin the time period is included. Narrative 11/04/2022 12:17 PM CLOTH DESIZING RANGE OPERATOR CHIEF Ordered by an unspecified provider. Scanned Document CARDIAC SERVICES ORD ERABLES * (ABNORMAL) CBC W/O DIFFERENTIAL (10/09/2022 10:33 AM CLOTH DESIZING RANGE OPERATOR CHIEF) Only the most recent of8 resultswithin the time period is included. WBC 7.4 3.5 - 10.5 10? 3 /uL 10/09/2022 11:06 AM [facility] RBC 2.63(L) 4.30 - 5.70 10? 6 /uL 10/09/2022 11:06 AM [facility] Hemoglobin 8.3(L) 12.0 - 17.6 g/dL 10/09/2022 11:06 AM [facility] Hematocrit 24.8(L) 35.2 - 51.7 % 10/09/2022 11:06 AM [facility] MCV 94.3 80.7 - 98.3 fL 10/09/2022 11:06 AM [facility] MCH 31.6 26.7 - 34.0 pg 10/09/2022 11:06 AM [facility] MCHC 33.5 30.8 - 35.9 g/dL 10/09/2022 11:06 AM [facility] RDW-SD 48.1 36.0 - 50.0 fL 10/09/2022 11:06 AM [facility] RDW-CV 14.3 11.2 - 14.8 % 10/09/2022 11:06 AM [facility] Platelet Count 272 150 - 400 10? 3 /uL 10/09/2022 11:06 AM [facility] MPV 10.3 9.4 - 12.9 fL 10/09/2022 11:06 AM [facility] nRBC Absolute 0.00 0 10? 3 /uL 10/09/2022 11:06 AM [facility] nRBC Auto 0.0 0 /100 WBC 10/09/2022 11:06 AM [facility] Blood BLOOD SPECIMEN / Unknown Lab Venipuncture / Unknown 10/09/2022 10:33 AM [facility]ING RANGE OPERATOR CHIEF 10/09/2022 10:50 AM [facility] Mylene Rocha APRN-BUSINESS PROCESS ASSOCIATE LAB - HEMATOLOGY ORDERABLES Performing Organization Address [facility]/State/[facility] Co de Phone Number [facility] [address] [place] [id number], [facility] [phone] * (ABNORMAL) BASIC METABOLIC PANEL (CALCIUM TOTAL) (10/09/2022 10:33 AM [facility]) Only the most recent of6 resultswithin the time period is included. BUN 17 7 - 26 mg/dL 10/09/2022 11:17 AM [facility] Creatinine 0.66(L) 0.71 - 1.16 mg/dL 10/09/2022 11:17 AM [facility] Sodium 134(L) 136 - 145 mmol/L 10/09/2022 11:17 AM [facility] Potassium 3.2(L) 3.5 - 4.5 mmol/L 10/09/2022 11:17 AM [facility] Chloride 101 98 - 107 mmol/L 10/09/2022 11:17 AM [facility] CO2 30(H) 22 - 29 mmol/L 10/09/2022 11:17 AM [facility] Glucose 148(H) 70 - 115 mg/dL 10/09/2022 11:17 AM [facility] Calcium 7.9(L) 8.4 - 10.2 mg/dL 10/09/2022 11:17 AM [facility] Anion Gap 6(L) 8 - 18 10/09/2022 11:17 AM [facility] BUN/Creatinine Ratio 26(H) 7 - 23 10/09/2022 11:17 AM [facility] Osmolality Calculated 282 270 - 300 mOsm/kg 10/09/2022 11:17 AM [facility] eGFR by CKD-EPI >90 >=90 mL/min/1.7 3 m2 10/09/2022 11:17 AM [facility] Blood BLOOD SPECIMEN / Unknown Lab Venipuncture / Unknown 10/09/2022 10:33 AM [facility]ANGE OPERATOR CHIEF 10/09/2022 10:50 AM [facility] OPERATOR CHIEF Mylene Rocha APRNBUSINESS PROCESS ASSOCIATE LAB - CHEMISTRY ORDERABLES [address] [address], [facility] [phone] * (ABNORMAL) PHOSPHORUS BLOOD (10/09/2022 10:33 AM [facility] DESIZING RANGE OPERATOR CHIEF) Only the most recent of6 resultswithin the time period is included. Phosphorus 2.1(L) 2.8 - 5.1 mg/dL 10/09/2022 11:17 AM [facility] Blood BLOOD SPECIMEN / Unknown Lab Venipuncture / Unknown 10/09/2022 10:33 AM [facility] RANGE OPERATOR CHIEF 10/09/2022 10:50 AM [facility]ANGE OPERATOR CHIEF Mylene Rocha RN MED SURG-BUSINESS PROCESS ASSOCIATE LAB - CHEMISTRY ORDERABLES [address] [address], [facility] [phone] * MAGNESIUM BLOOD (10/09/2022 10:33 AM [facility]ANGE OPERATOR CHIEF) Only the most recent of7 resultswithin the time period is included. Magnesium 2.0 1.6 - 2.6 mg/dL 10/09/2022 11:17 AM [facility] Blood BLOOD SPECIMEN / Unknown Lab Venipuncture / Unknown 10/09/2022 10:33 AM [facility]ING RANGE OPERATOR CHIEF 10/09/2022 10:50 AM [facility] DESIZING RANGE OPERATOR CHIEF Mylene Mcneil Leesanadeemaleks RN MED SURG-BUSINESS PROCESS ASSOCIATE LAB - CHEMISTRY ORDERABLES [facility] [address] [place] [phone], [facility] [phone] * (ABNORMAL) URINALYSIS REFLEX TO MICROSCOPIC NO CULTURE (10/08/2022 7:02 PM CL[facility] DESIZING RANGE OPERATOR CHIEF) Color UA Yellow Straw, Yellow 10/08/2022 7:39 PM [facility] Clarity UA Clear Clear 10/08/2022 7:39 PM [facility] Specific [place] UA 1.020 1.005 - 1.030 10/08/2022 7:39 PM [facility] pH UA 6.0 5.0 - 8.0 pH 10/08/2022 7:39 PM [facility] Protein UA 2+(A) Negative 10/08/2022 7:39 PM [facility] Glucose UA Negative Negative 10/08/2022 7:39 PM [facility] Ketone UA Negative Negative 10/08/2022 7:39 PM [facility] Bilirubin UA Negative Negative 10/08/2022 7:39 PM [facility] Comment:Urine Bilirubin resu lt confirmed by manual Ictotest. Blood UA 1+(A) Negative 10/08/2022 7:39 PM [facility] Nitrite UA Negative Negative 10/08/2022 7:39 PM [facility] Leukocyte Esterase Negative Negative 10/08/2022 7:39 PM [facility] Urobilinogen UA Negative Negative mg/dL 10/08/2022 7:39 PM [facility] RBC UA 0-2 None Seen, 0-2, 3-5 /HPF 10/08/2022 7:39 PM CLOTH DESIZING RANGE OPERATOR CHIEF [facility] WBC UA 0-5 None Seen, 0-5 /HPF 10/08/2022 7:39 PM CLOTH DESIZING RANGE OPERATOR CHIEF [facility] Bacteria UA Trace(A) None /HPF 10/08/2022 7:39 PM CLOTH DESIZING RANGE OPERATOR CHIEF [facility] Squamous Epithelial Cells UA None Seen None Seen, 0-2, 3-5 /HPF 10/08/2022 7:39 PM CLOTH DESIZING RANGE OPERATOR CHIEF [facility] Mucus UA 1+ /LPF 10/08/2022 7:39 PM CLOTH DESIZING RANGE OPERATOR CHIEF [facility] Granular Casts UA 3-5(A) None Seen /LPF 10/08/2022 7:39 PM CLOTH DESIZING RANGE OPERATOR CHIEF [facility] Urine URINE SPECIMEN OBTAINED BY CLEAN CATCH PROCEDURE / Unknown Collection / Unknown 10/08/2022 7:02 PM CLOTH DESIZING RANGE OPERATOR CHIEF 10/08/2022 7:16 PM CLOTH DESIZING RANGE OPERATOR CHIEF Narrative [facility] - 10/08/2022 7:39 PM CLOTH DESIZING RANGE OPERATOR CHIEF Gonzalo Pagan MD LAB - URINALYSIS ORD ERABLES [facility] [address] [place] [address], [facility] [phone] * PH FECES (10/08/2022 12:27 PM CLOTH DESIZING RANGE OPERATOR CHIEF) pH Feces 7.0 5.0 - 8.5 10/12/2022 10:52 AM CLOTH DESIZING RANGE OPERATOR CHIEF [facility] ([facility]) Comment: Performed By: [employer] [address] [place] [address] Fundraising Officer: Stevie Persaud MD, PhD Stool STOOL SPECIMEN / Unknown Collection / Unknown 10/08/2022 12:27 PM CLOTH DESIZING RANGE OPERATOR CHIEF 10/08/2022 12:43 PM CLOTH DESIZING RANGE OPERATOR CHIEF Gonzalo Pagan MD LAB - BODY FLUID ORD ERABLES [facility] ([facility]) [address] [place] [phone], [facility] * XR CHEST 1VW PORTABLE (10/08/2022 11:48 AM CLOTH DESIZING RANGE OPERATOR CHIEF) Only the most recent of4 resultswithin the time period is included. Anatomical Region Laterality Modality Chest Radiographic Tawana ging 10/08/2022 3:11 PM CLOTH DESIZING RANGE OPERATOR CHIEF Narrative 10/08/2022 4:06 PM CLOTH DESIZING RANGE OPERATOR CHIEF PROCEDURE: ??XR CHEST 1VW PORTABLE, DATE/TIME OF EXAM: ??10/08/2022 11:50 AM, LOCATION ??[facility] INDICATION: R05.9: Cough, unspecified type ADDITIONAL CLINICAL [...] imaging. Report dictated by Aiden Murray M.D. (vice president of instruction) Saul Webber have personally reviewed and interpreted this examination/study. > Interpreting Provider: Saul Walden on 10/08/2022 4:06 PM Procedure Note Saul Walden MD - 10/08/2022 PROCEDURE: XR CHEST 1VW PORTABLE, DATE/TIME OF EXAM: 10/08/2022 11:50AM, LOCATION [facility] INDICATION: R05.9: Cough, unspecified type ADDITIONAL CLINICAL [...] imaging. Report dictated by Aiden Murray M.D. (vice president of instruction) Saul Webber have personally reviewed and interpreted this examination/study. > Interpreting Provider: Saul Walden on 10/08/2022 4:06 PM Gonzalo Pagan MD DIAGNOSTIC IMAGING O RDERABLES * (ABNORMAL) COMPREHENSIVE METABOLIC PANEL (10/08/2022 5:40 AM [facility]) BUN 24 7 - 26 mg/dL 10/08/2022 6:43 AM [facility] Creatinine 0.72 0.71 - 1.16 mg/dL 10/08/2022 6:43 AM [facility] Sodium 139 136 - 145 mmol/L 10/08/2022 6:43 AM [facility] Potassium 3.5 3.5 - 4.5 mmol/L 10/08/2022 6:43 AM [facility] Chloride 106 98 - 107 mmol/L 10/08/2022 6:43 AM [facility] CO2 28 22 - 29 mmol/L 10/08/2022 6:43 AM [facility] Glucose 103 70 - 115 mg/dL 10/08/2022 6:43 AM [facility] Calcium 7.9(L) 8.4 - 10.2 mg/dL 10/08/2022 6:43 AM [facility] Protein Total 5.2(L) 6.0 - 8.3 g/dL 10/08/2022 6:43 AM [facility] Albumin 2.4(L) 3.4 - 5.0 g/dL 10/08/2022 6:43 AM [facility] Bilirubin Total 1.0 0.2 - 1.2 mg/dL 10/08/2022 6:43 AM [facility] Alkaline Phosphatase 55 40 - 150 U/L 10/08/2022 6:43 AM [facility] ALT 36 5 - 55 U/L 10/08/2022 6:43 AM [facility] AST 31 5 - 34 U/L 10/08/2022 6:43 AM [facility] Anion Gap 9 8 - 18 10/08/2022 6:43 AM [facility] BUN/Creatinine Ratio 33(H) 7 - 23 10/08/2022 6:43 AM [facility] Osmolality Calculated 292 270 - 300 mOsm/kg 10/08/2022 6:43 AM [facility] Albumin/Globulin Ratio 0.9(L) 1.1 - 2.3 10/08/2022 6:43 AM [facility] eGFR by CKD-EPI >90 >=90 mL/min/1.7 3 m2 10/08/2022 6:43 AM [facility] Blood BLOOD SPECIMEN / Unknown Lab Venipuncture / Unknown 10/08/2022 5:40 AM CL[facility]IZING RANGE OPERATOR CHIEF 10/08/2022 6:11 AM CL[facility] DESIZING RANGE OPERATOR CHIEF Mylene Mcneil Leesanadeemaleks BILLN-BUSINESS PROCESS ASSOCIATE LAB - CHEMISTRY ORDERABLES [address] [address], [place] [phone] * FOLATE (10/08/2022 5:40 AM CLOTH DESIZING RANGE OPERATOR CHIEF) Folate 9.3 7.0 - 31.4 ng/mL 10/08/2022 7:15 AM CLOTH DESIZING RANGE OPERATOR CHIEF [facility] Blood BLOOD SPECIMEN / Unknown Lab Venipuncture / Unknown 10/08/2022 5:40 AM CLOTH DESIZING RANGE OPERATOR CHIEF 10/08/2022 6:11 AM CLOTH DESIZING RANGE OPERATOR CHIEF Mylene Mcneil Jamesaleks ABDIRASHID-BUSINESS PROCESS ASSOCIATE LAB - CHEMISTRY ORDERABLES [address] [address], [place] [phone] * VITAMIN B12 (10/08/2022 5:40 AM CLOTH DESIZING RANGE OPERATOR CHIEF) Vitamin B12 710 213 - 816 pg/mL 10/08/2022 7:15 AM CLOTH DESIZING RANGE OPERATOR CHIEF [facility] Blood BLOOD SPECIMEN / Unknown Lab Venipuncture / Unknown 10/08/2022 5:40 AM CLOTH DESIZING RANGE OPERATOR CHIEF 10/08/2022 6:11 AM CLOTH DESIZING RANGE OPERATOR CHIEF Mylene Mcneil Josefina RN MED SURG-BUSINESS PROCESS ASSOCIATE LAB - CHEMISTRY ORDERABLES [address] [address], [place] [phone] * NM MYOCARD PERF REST STRESS (10/07/2022 12:29 PM CLOTH DESIZING RANGE OPERATOR CHIEF) Anatomical Region Laterality Modality Chest Nuclear Medicine 10/07/2022 10:3 9 AM CLOTH DESIZING RANGE OPERATOR CHIEF Impressions 10/07/2022 3:08 PM CLOTH DESIZING RANGE OPERATOR CHIEF Impression: 1. Small, fixed defect in the distal infero-lateral wall suggestive of infarction. No evidence of stress induced ischemia. 2. Normal left ventricular function with a calculated ejection fraction of 46%. 3. Bilateral pleural effusions with parenchymal changes described above, suggestive of inflammatory/infectious etiology. > Dictated by Westley Alexander MD (Pumping Plant Operator) 10/07/2022 1:56 PM ICecelia DO have personally reviewed and interpreted this examination/study. > Interpreting Provider: Cecelia Oneill DO on 10/07/2022 3:08 PM Narrative 10/07/2022 3:08 PM CLOTH DESIZING RANGE OPERATOR CHIEF PROCEDURE: ??NM MYOCARD PERF REST STRESS, DATE/TIME OF EXAM: ??10/07/2022 9:59 AM, LOCATION ??[facility] INDICATION: R77.8: Elevated troponin Rest and Pharmacologic [...] DATE/TIME OF EXAM: 10/07/2022 9:59 AM, LOCATION [facility] INDICATION: R77.8: Elevated troponin Rest and Pharmacologic [...] etiology. > Dictated by Westley Alexander MD (Pumping Plant Operator) 10/07/2022 1:56PM Cecelia Webber DO have personally reviewed and interpreted this examination/study. > Interpreting Provider: Cecelia Oneill DO on 10/07/2022 3:08 PM Mylene Rocha RN MED SURG-BUSINESS PROCESS ASSOCIATE NM ORDERABLES * XR ABDOMEN KUB PORTABLE (10/06/2022 2:04 PM CLOTH DESIZING RANGE OPERATOR CHIEF) Anatomical Region Laterality Modality Abdomen Radiographic Tawana ging 10/06/2022 2:10 PM CLOTH DESIZING RANGE OPERATOR CHIEF Impressions 10/06/2022 3:26 PM CLOTH DESIZING RANGE OPERATOR CHIEF IMPRESSION: Nonspecific bowel gas pattern, potentially representing ileus. Report dictated by Aiden Murray M.D. (vice president of instruction) Gordy Webber MD have personally reviewed and interpreted this examination/study. > Interpreting Provider: Gordy Sahni MD on 10/06/2022 3:26 PM Narrative 10/06/2022 3:26 PM CLOTH DESIZING RANGE OPERATOR CHIEF PROCEDURE: ??XR ABDOMEN KUB PORTABLE, DATE/TIME OF EXAM: ??10/06/2022 2:05 PM, LOCATION ??[facility] INDICATION: R11.0: Nausea without vomiting ADDITIONAL CLINICAL [...] DATE/TIME OF EXAM: 10/06/2022 2:05 PM, LOCATION [facility] INDICATION: R11.0: Nausea without vomiting ADDITIONAL CLINICAL [...] ileus. Report dictated by Aiden Murray M.D. (vice president of instruction) Gordy Webber MD have personally reviewed and interpreted this examination/study. > Interpreting Provider: Gordy Sahni MD on 10/06/2022 3:26 PM Mylene Mcneil Josefina [facility] DIAGNOSTIC IMAGI NG ORDERABLES * ECHO COMPLETE (10/06/2022 11:02 AM CLOTH DESIZING RANGE OPERATOR CHIEF) Anatomical Region Laterality Modality Chest Echo 10/06/2022 10:0 7 AM CLOTH DESIZING RANGE OPERATOR CHIEF Narrative Procedure Note Thelma Loepz MD - 10/06/2022 Ori Davis MD ECHOCARDIOGRAPHY RAD IANT * EKG 12-LEAD (10/06/2022 11:00 AM CLOTH DESIZING RANGE OPERATOR CHIEF) Only the most recent of3 resultswithin the time period is included. Ventricular Rate 105 BPM [facility] Atrial Rate 105 BPM [facility] MUSE P-R Interval 138 ms H MUSE QRS Duration ms 92 ms [facility] Q-T Interval ms 336 ms [facility] M[facility] QTC Calculation (Bezet) 444 ms [facility] Calculated P Robert Lee 13 degrees [facility] Calculated R Robert Lee -40 degrees [facility] Calculated T Robert Lee 53 degrees [facility] Interpretation EKG SINUS TACHYCARDIA LEFT AXIS DEVIATION ABNORMAL ECG WHEN COMPARED WITH ECG OF 05-OCT-2022 15:51, PREMATURE VENTRICULAR COMPLEXES ARE NO LONGER PRESENT QRS AXIS SHIFTED LEFT Confirmed by fellow OCTAVIO MORALES MD ([id number]) on 10/08/2022 11:32:49 AM Confirmed by STEPHANIE MCCOY MD ([id number]) on 10/09/2022 12:00:47 PM [facility] MUSE 10/06/2022 11:0 0 AM CLOTH DESIZING RANGE OPERATOR CHIEF 10/09/2022 12:00 PM CLOTH DESIZING RANGE OPERATOR CHIEF Mylene Rocha NICO ECG ORDERABLES [facility] MUSE * (ABNORMAL) CALCIUM IONIZED WHOLE BLOOD (10/05/2022 4:45 PM CLOTH DESIZING RANGE OPERATOR CHIEF) Calcium Ionized 1.27 mmol/L 10/05/2022 4:52 PM CLOTH DESIZING RANGE OPERATOR CHIEF [facility] pH 7.30(L) 7.35 - 7.45 pH 10/05/2022 4:52 PM [facility] Ionized Calcium pH Adjusted 1.22 1.19 - 1.34 mmol/L 10/05/2022 4:52 PM [facility] Blood BLOOD SPECIMEN / Unknown Venipuncture / Unknown 10/05/2022 4:45 PM CLOTH DESIZING RANGE OPERATOR CHIEF 10/05/2022 4:49 PM CLOTH DESIZING RANGE OPERATOR CHIEF Naren Layton PA-C LAB - CHEMISTRY O RDERABLES Performing Organization Address City/[facility]/ZIP Co de Phone Number [facility] [address] [place] [address], [facility] [phone] * (ABNORMAL) CK BLOOD (10/05/2022 3:25 AM CLOTH DESIZING RANGE OPERATOR CHIEF) Only the most recent of2 resultswithin the time period is included. CK Total 936(H) 30 - 200 U/L 10/05/2022 4:05 AM CLOTH DESIZING RANGE OPERATOR CHIEF [facility] Blood BLOOD SPECIMEN / Unknown Venipuncture / Unknown 10/05/2022 3:25 AM CLOTH DESIZING RANGE OPERATOR CHIEF 10/05/2022 3:45 AM CLOTH DESIZING RANGE OPERATOR CHIEF Ori Davis MD LAB - CHEMISTRY SARAHI FIGUEROA Performing Organization Address [facility]/ZIP Co de Phone Number [facility] [address] [place] [address], [place] [phone] * (ABNORMAL) TROPONIN I (10/04/2022 11:42 PM CLOTH DESIZING RANGE OPERATOR CHIEF) Only the most recent of3 resultswithin the time period is included. Troponin I 0.145(H) <0.032 ng/mL 10/05/2022 12:21 AM CLOTH DESIZING RANGE OPERATOR CHIEF [facility] Blood BLOOD SPECIMEN / Unknown Venipuncture / Unknown 10/04/2022 11:42 PM CLOTH DESIZING RANGE OPERATOR CHIEF 10/04/2022 11:49 PM CLOTH DESIZING RANGE OPERATOR CHIEF Ori Davis MD LAB - CHEMISTRY SARAHI FIGUEROA [facility] [address] [place] [address], [facility] [phone] * HEMOGLOBIN A1C (10/04/2022 11:42 PM CLOTH DESIZING RANGE OPERATOR CHIEF) [facility] Hemoglobin A1c 5.2 <=5.6 % 10/05/2022 9:39 AM [facility] Estimated Average Glucose 103 mg/dL 10/05/2022 9:39 AM [facility] Comment: HbA1c Interpretation: Normal : < 5.7% Pre-diabetes: 5.7-6.4% Diabetes: Equal to or greater than 6.5% Test results diagnostic of diabetes should be repeated for confirmation. Treatment target values recommended by ADA and other clinical organizations should be used to evaluate metabolic control in patients. Reference: [place] [employer], Standards of Care in Diabetes -2020 In patients 70 years and older consider HbA1c target range of 7.0-7.5% (Reference: Alejo Parks et al. JAMDA. 2012) The Sebia assay for the measurement of HbA1c is a National Glycohemoglobin Standardization Program (NGSP) certified method. Blood BLOOD SPECIMEN / Unknown Venipuncture / Unknown 10/04/2022 11:42 PM CLOTH DESIZING RANGE OPERATOR CHIEF 10/04/2022 11:49 PM CLOTH DESIZING RANGE OPERATOR CHIEF Ori Davis MD LAB - CHEMISTRY SARAHI FIGUEROA [facility] Organization Address City/State/ZIP Co de Phone Number [facility] [address] [place] [address], [facility] [phone] * (ABNORMAL) URINE DRUG SCREEN IMMUNOASSAY (10/04/2022 11:42 PM CLOTH DESIZING RANGE OPERATOR CHIEF) [facility] Amphetamines Screen Urine Negative Negative : < 1000 ng/mL 10/05/2022 1:51 AM [facility] Barbiturates Screen Urine Negative Negative : < 200 ng/mL 10/05/2022 1:51 AM [facility] Benzodiazepine Screen Urine Negative Negative : < 200 ng/mL 10/05/2022 1:51 AM [facility] Opiates Urine Positive(A) Negative : < 300 ng/mL 10/05/2022 1:51 AM [facility] Comment:Positive urine opiat e screening results should be confirmed by another generally accepted non-immunological method such as gas chromatography or mass spectrometry. Cocaine Metabolites Urine Negative Negative : < 300 ng/mL 10/05/2022 1:51 AM [facility] Phencyclidine Screen Urine Negative Negative : < 25 ng/ml 10/05/2022 1:51 AM [facility] Cannabinoids Screen Urine Negative Negative : <50 ng/mL 10/05/2022 1:51 AM [facility] Methadone Screen Urine Negative Negative : < 300 ng/mL 10/05/2022 1:51 AM [facility] Fentanyl Screen Urine Negative Negative : <1.5 ng/mL 10/05/2022 1:51 AM [facility] Urine URINE / Unknown Collection / Unknown 10/04/2022 11:42 PM [facility] 10/04/2022 11:46 PM [facility] - 10/05/2022 1:51 AM [facility] The Urine Toxicology Screening Panel does not screen for Propoxyphene, Meprobamate, Carisoprodol, Trazodone, [id number] medications and/or volatiles (Acetone, Isopropanol, Methanol or Ethylene Glycol). Ethanol, Salicylate, Acetaminophen, Tricyclic Antidepressants and several therapeutic drugs may be individually assayed in serum or plasma specimen. Toxicology testing by the [facility] is an aid to medical diagnosis and treatment of patients. No documented chain of custody was maintained. Results are intended to be used for clinical purposes only. ? Ori Davis MD LAB - URINE CHEMISTR Y ORDERABLES Performing Organization Address [facility]/ZIP Co de Phone Number [facility] [address] [place] [address], [place] [phone] * LIPID PROFILE (10/04/2022 11:42 PM [employer]) Cholesterol Total 130 <200 mg/dL 10/05/2022 12:16 AM [facility] HDL 45 >40 mg/dL 10/05/2022 12:16 AM [facility] Comment: ATP III Classification of HDL Cholesterol: ? <40 mg/dL: ??Considered a major risk factor. ? >60 mg/dL: ??Considered a negative risk factor. ? LDL Calculated 67 <100 mg/dL 10/05/2022 12:16 AM [facility] Comment: ATP III Classification of LDL Cholesterol: ?<100 mg/dL: ??Optimal ? 100 - 129 mg/dL: ??Near Optimal/Above Optimal ? 130 - 159 mg/dL: ??Borderline High ? 160 - 189 mg/dL: ??High ?>190 mg/dL: ??Very High ? Triglycerides 89 <150 mg/dL 10/05/2022 12:16 AM [facility] Comment: ATP III Classification of Triglycerides: ?<150 mg/dL: ??Normal ? 150 - 199 mg/dL: ??Borderline High ? 200 - 400 mg/dL: ??High ?>500 mg/dL: ??Very High Blood BLOOD SPECIMEN / Unknown Venipuncture / Unknown 10/04/2022 11:42 PM CLOTH DESIZING RANGE OPERATOR CHIEF 10/04/2022 11:49 PM CLOTH DESIZING RANGE OPERATOR CHIEF Ori Davis MD LAB - CHEMISTRY SARAHI FIGUEROA Performing Organization Address City/[facility]/ZIP Co de Phone Number [facility] [address] [place] [address], [place] [phone] * BLOOD TYPE VERIFICATION (10/04/2022 5:26 PM CLOTH DESIZING RANGE OPERATOR CHIEF) ABO Rh A POS 10/04/2022 5:5 6 PM CLOTH DESIZING RANGE OPERATOR CHIEF [facility] Blood Bank BLOOD SPECIMEN / Unknown Lab Venipuncture / Unknown 10/04/2022 5:26 PM CLOTH DESIZING RANGE OPERATOR CHIEF 10/04/2022 5:29 PM CLOTH DESIZING RANGE OPERATOR CHIEF Gladys Persaud MD LAB - BLOOD BANK ORD ERABLES [facility] [address] [place] [address], [facility] [phone] * CT CHEST ABDOMEN PELVIS W CONT - Abdomen-pelvis trauma, blunt or penetrating (10/04/2022 4:14 PM CLOTH DESIZING RANGE OPERATOR CHIEF) Anatomical Region Laterality Modality Chest, Abdomen, Pelvis Computed Tomography 10/04/2022 4:23 PM CLOTH DESIZING RANGE OPERATOR CHIEF Impressions 10/04/2022 8:24 PM CLOTH DESIZING RANGE OPERATOR CHIEF IMPRESSION: 1.Splenic laceration with moderate volume perisplenic [...] nontraumatic. > Dictated by Chacho Helton MD (vice president of instruction) ISaul have personally reviewed and interpreted this examination/study. > Interpreting Provider: Saul Walden on 10/04/2022 8:24 PM Narrative 10/04/2022 8:24 PM CLOTH DESIZING RANGE OPERATOR CHIEF PROCEDURE: ??CT CHEST ABDOMEN PELVIS W CONT, DATE/TIME OF EXAM: ??10/04/2022 4:17 PM, LOCATION ??[facility] INDICATION: Trauma ADDITIONAL CLINICAL INFORMATION: COMPARISON: None. [...] CONT, DATE/TIME OF EXAM:10/04/2022 4:17 PM, LOCATION [facility] INDICATION: Trauma ADDITIONAL CLINICAL INFORMATION: COMPARISON: None. [...] nontraumatic. > Dictated by Chacho Helton MD (vice president of instruction) Saul Webber have personally reviewed and interpreted this examination/study. 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 Report dictated by Mane Jalloh MD (vice president of instruction). Gerard Webber MD have personally reviewed and interpreted this examination/study. > Interpreting Provider: Gerard Jj MD on 10/04/2022 5:46 PM Narrative 10/04/2022 5:46 PM CLOTH DESIZING RANGE OPERATOR CHIEF PROCEDURE: ??CT HEAD WO CONTRAST, CT LUMBAR SPINE WO CONTRAST, CT THORACIC SPINE WO CONTRAST, CT CERVICAL SPINE WO CONTRAST, DATE/TIME OF EXAM: 10/04/2022 4:17 PM, LOCATION ??[facility] INDICATION: Trauma ADDITIONAL CLINICAL INFORMATION: Ordering Provider [...] DATE/TIME OF EXAM: 10/04/2022 4:17 PM, LOCATION [facility] INDICATION: Trauma ADDITIONAL CLINICAL INFORMATION: Ordering Provider [...] evidence of acute fracture. Mild wedging of [id number] vertebral bodies may be developmental or related [...] 10/04/2022. Report dictated by Mane Jalloh MD (vice president of instruction). Gerard Webber MD have personally reviewed and interpreted this examination/study. > Interpreting Provider: Gerard Jj MD on 10/04/2022 5:46 PM Authorizing Provider Result Bridget Davis MD CT ORDERABLES * CT THORACIC SPINE WO CONTRAST - T/L-spine trauma, spine fracture (10/04/2022 4:14 PM CLOTH DESIZING RANGE OPERATOR CHIEF) Anatomical Region Laterality Modality Spine Computed Tomogra phy 10/04/2022 4:10 PM CLOTH DESIZING RANGE OPERATOR CHIEF Impressions 10/04/2022 5:46 PM CLOTH DESIZING RANGE OPERATOR CHIEF IMPRESSION: 1.No acute intracranial hemorrhage, midline shift, [...] 10/04/2022. Report dictated by Mane Jalloh MD (vice president of instruction). Gerard Webber MD have personally reviewed and interpreted this examination/study. > Interpreting Provider: Gerard Jj MD on 10/04/2022 5:46 PM Narrative 10/04/2022 5:46 PM CLOTH DESIZING RANGE OPERATOR CHIEF PROCEDURE: ??CT HEAD WO CONTRAST, CT LUMBAR SPINE WO CONTRAST, CT THORACIC SPINE WO CONTRAST, CT CERVICAL SPINE WO CONTRAST, DATE/TIME OF EXAM: 10/04/2022 4:17 PM, LOCATION ??[facility] INDICATION: Trauma ADDITIONAL CLINICAL INFORMATION: Ordering Provider [...] DATE/TIME OF EXAM: 10/04/2022 4:17 PM, LOCATION [facility] INDICATION: Trauma ADDITIONAL CLINICAL INFORMATION: Ordering Provider [...] evidence of acute fracture. Mild wedging of [id number] vertebral bodies may be developmental or related [...] 10/04/2022. Report dictated by Mane Jalloh MD (vice president of instruction). I, Gerard Jj MD have personally reviewed and interpreted this examination/study. > Interpreting Provider: Gerard Jj MD on 10/04/2022 5:46 PM Ori Davis MD CT ORDERABLES * CT CERVICAL SPINE WO CONTRAST - C-Spine Trauma, Spine fracture (10/04/2022 4:14 PM CLOTH DESIZING RANGE OPERATOR CHIEF) Anatomical Region Laterality Modality Spine Computed Tomogra phy 10/04/2022 4:10 PM CLOTH DESIZING RANGE OPERATOR CHIEF Impressions 10/04/2022 5:46 PM CLOTH DESIZING RANGE OPERATOR CHIEF IMPRESSION: 1.No acute intracranial hemorrhage, midline shift, [...] 10/04/2022. Report dictated by Mane Jalloh MD (vice president of instruction). I, Gerard Jj MD have personally reviewed and interpreted this examination/study. > Interpreting Provider: Gerard Jj MD on 10/04/2022 5:46 PM Narrative 10/04/2022 5:46 PM CLOTH DESIZING RANGE OPERATOR CHIEF PROCEDURE: ??CT HEAD WO CONTRAST, CT LUMBAR SPINE WO CONTRAST, CT THORACIC SPINE WO CONTRAST, CT CERVICAL SPINE WO CONTRAST, DATE/TIME OF EXAM: 10/04/2022 4:17 PM, LOCATION ??[facility] INDICATION: Trauma ADDITIONAL CLINICAL INFORMATION: Ordering Provider [...] DATE/TIME OF EXAM: 10/04/2022 4:17 PM, LOCATION [facility] INDICATION: Trauma ADDITIONAL CLINICAL INFORMATION: Ordering Provider [...] evidence of acute fracture. Mild wedging of [id number] vertebral bodies may be developmental or related [...] 10/04/2022. Report dictated by Mane Jalloh MD (vice president of instruction). I, Gerard Jj MD have personally reviewed and interpreted this examination/study. > Interpreting Provider: Gerard Jj MD on 10/04/2022 5:46 PM [address] MD [address] ORDERABLES * CT HEAD WO CONTRAST - Head Trauma, CSF leak, mental status changes (10/04/2022 4:14 PM CLOTH DESIZING RANGE OPERATOR CHIEF) Anatomical Region Laterality Modality Head Computed Tomogra phy 10/04/2022 4:10 PM CLOTH DESIZING RANGE OPERATOR CHIEF Impressions 10/04/2022 5:46 PM CLOTH DESIZING RANGE OPERATOR CHIEF IMPRESSION: 1.No acute intracranial hemorrhage, midline shift, [...] 10/04/2022. Report dictated by Mane Jalloh MD (vice president of instruction). I, Gerard Jj MD have personally reviewed and interpreted this examination/study. > Interpreting Provider: Gerard Jj MD on 10/04/2022 5:46 PM Narrative 10/04/2022 5:46 PM CLOTH DESIZING RANGE OPERATOR CHIEF PROCEDURE: ??CT HEAD WO CONTRAST, CT LUMBAR SPINE WO CONTRAST, CT THORACIC SPINE WO CONTRAST, CT CERVICAL SPINE WO CONTRAST, DATE/TIME OF EXAM: 10/04/2022 4:17 PM, LOCATION ??[facility] INDICATION: Trauma ADDITIONAL CLINICAL INFORMATION: Ordering Provider [...] DATE/TIME OF EXAM: 10/04/2022 4:17 PM, LOCATION [facility] INDICATION: Trauma ADDITIONAL CLINICAL INFORMATION: Ordering Provider [...] evidence of acute fracture. Mild wedging of [id number] vertebral bodies may be developmental or related [...] 10/04/2022. Report dictated by Mane Jalloh MD (vice president of instruction). Gerard Webber MD have personally reviewed and interpreted this examination/study. > Interpreting Provider: Gerard Jj MD on 10/04/2022 5:[address] MD [address] ORDERABLES * XR PELVIS 1 OR 2VW (10/04/2022 4:02 PM CLOTH DESIZING RANGE OPERATOR CHIEF) Anatomical Region Laterality Modality Pelvis Radiographic Tawana ging 10/04/2022 3:38 PM CLOTH DESIZING RANGE OPERATOR CHIEF Impressions 10/04/2022 4:04 PM CLOTH DESIZING RANGE OPERATOR CHIEF IMPRESSION: No acute fracture identified. Report dictated by Mane Jalloh MD (vice president of instruction). CASEY Webber MD have personally reviewed and interpreted this examination/study. > Interpreting Provider: CASEY MUÑOZ MD on 10/04/2022 4:04 PM Narrative 10/04/2022 4:04 PM CLOTH DESIZING RANGE OPERATOR CHIEF PROCEDURE: ??XR PELVIS 1 OR 2VW, DATE/TIME OF EXAM: ??10/04/2022 4:03 PM, LOCATION ??[facility] INDICATION: Trauma Fracture suspected ADDITIONAL CLINICAL INFORMATION: [...] DATE/TIME OF EXAM: 10/04/2022 4:03 PM, LOCATION [facility] INDICATION: Trauma Fracture suspected ADDITIONAL CLINICAL INFORMATION: [...] identified. Report dictated by Mane Jalloh MD (vice president of instruction). I, CASEY MUÑOZ MD have personally reviewed and interpreted this examination/study. > Interpreting Provider: CASEY MUÑOZ MD on 10/04/2022 4:04 PM Ori Davis MD DIAGNOSTIC IMAGING O RDERABLES * PTT [facility] (10/04/2022 3:34 PM CLOTH DESIZING RANGE OPERATOR CHIEF) APTT 25.7 23.0 - 38.4 Seconds 10/04/2022 4:00 PM CLOTH DESIZING RANGE OPERATOR CHIEF [facility] Comment:Suggested therapeuti c range for full dose I.V. unfractionated heparin therapy for venous thromboembolism is 71 to 109 seconds. Blood BLOOD SPECIMEN / Unknown Venipuncture / Unknown 10/04/2022 3:34 PM CLOTH DESIZING RANGE OPERATOR CHIEF 10/04/2022 3:38 PM CLOTH DESIZING RANGE OPERATOR CHIEF Ori Davis MD LAB - COAGULATION OR DERABLES [facility] [address] [place] [address], [facility] [phone] * (ABNORMAL) PT-INR [facility] (10/04/2022 3:34 PM CLOTH DESIZING RANGE OPERATOR CHIEF) [facility] PT 15.6(H) 12.1 - 14.8 Seconds 10/04/2022 4:00 PM CLOTH DESIZING RANGE OPERATOR CHIEF [facility] INR 1.2 See Comment 10/04/2022 4:00 PM [facility] Comment:The suggested therap eutic range for standard coumadin (warfarin) therapy is an INR of 2.0-3.0. For high-risk patients (Mechanical Mitral Valve Prosthesis, etc.), the suggested prophylactic therapeutic range is an INR of 2.5-3.5. Blood BLOOD SPECIMEN / Unknown Venipuncture / Unknown 10/04/2022 3:34 PM CLOTH DESIZING RANGE OPERATOR CHIEF 10/04/2022 3:38 PM CLOTH DESIZING RANGE OPERATOR CHIEF Ori Davis MD LAB - COAGULATION OR DERABLES [address] [address], [facility] [phone] * TYPE + SCREEN PANEL (10/04/2022 3:34 PM CLOTH DESIZING RANGE OPERATOR CHIEF) [facility] Antibody Screen NEG 4:19 PM CLOTH DESIZING RANGE OPERATOR CHIEF [facility] ABO Rh A POS 10/04/2022 4:19 PM CLOTH DESIZING RANGE OPERATOR CHIEF [facility] Blood Bank BLOOD SPECIMEN / Unknown Venipuncture / Unknown 10/04/2022 3:34 PM CLOTH DESIZING RANGE OPERATOR CHIEF 10/04/2022 3:38 PM CLOTH DESIZING RANGE OPERATOR CHIEF Ori Davis MD LAB - BLOOD BANK ORD ERABLES [facility] [address] [place] [phone], [facility] [phone] * (ABNORMAL) RETIC COUNT (10/04/2022 3:34 PM CLOTH DESIZING RANGE OPERATOR CHIEF) [facility] Reticulocyte % 2.4 0.4 - 2.5 % 10/04/2022 3:41 PM CLOTH DESIZING RANGE OPERATOR CHIEF [facility] Reticulocyte Absolute 0.0634 0.0200 - 0.1300 10? 6 /uL 10/04/2022 3:41 PM [facility] Reticulocyte Immature Fractionated 31.3(H) 0.9 - 14.3 % 10/04/2022 3:41 PM [facility] Hemoglobin Retic 35.9 27.8 - 36.8 pg 10/04/2022 3:41 PM [facility] Blood BLOOD SPECIMEN / Unknown Venipuncture / Unknown 10/04/2022 3:34 PM CLOTH DESIZING RANGE OPERATOR CHIEF 10/04/2022 3:38 PM CLOTH DESIZING RANGE OPERATOR CHIEF Ori Davis MD LAB - HEMATOLOGY ORD ERABLES [facility] [address] [place] [address], [facility] [phone] * (ABNORMAL) CBC W AUTO DIFFERENTIAL (10/04/2022 3:34 PM CLOTH DESIZING RANGE OPERATOR CHIEF) WBC 13.3(H) 3.5 - 10.5 10? 3 /uL 10/04/2022 3:41 PM [facility] RBC 2.64(L) 4.30 - 5.70 10? 6 /uL 10/04/2022 3:41 PM [facility] Hemoglobin 8.4(L) 12.0 - 17.6 g/dL 10/04/2022 3:41 PM [facility] Hematocrit 25.2(L) 35.2 - 51.7 % 10/04/2022 3:41 PM [facility] MCV 95.5 80.7 - 98.3 fL 10/04/2022 3:41 PM [facility] MCH 31.8 26.7 - 34.0 pg 10/04/2022 3:41 PM [facility] MCHC 33.3 30.8 - 35.9 g/dL 10/04/2022 3:41 PM [facility] RDW-SD 46.1 36.0 - 50.0 fL 10/04/2022 3:41 PM [facility] RDW-CV 13.2 11.2 - 14.8 % 10/04/2022 3:41 PM [facility] Platelet Count 192 150 - 400 10? 3 /uL 10/04/2022 3:41 PM [facility] MPV 10.5 9.4 - 12.9 fL 10/04/2022 3:41 PM [facility] nRBC Absolute 0.00 0 10? 3 /uL 10/04/2022 3:41 PM [facility] nRBC Auto 0.0 0 /100 WBC 10/04/2022 3:41 PM [facility] Neutrophils % 77.1(H) 35.0 - 70.0 % 10/04/2022 3:41 PM [facility] Lymphocytes % 11.1(L) 20.0 - 43.0 % 10/04/2022 3:41 PM [facility] Monocytes % 11.1 5.0 - 13.0 % 10/04/2022 3:41 PM [facility] Eosinophils % 0.0 0.0 - 6.0 % 10/04/2022 3:41 PM [facility] Basophil % 0.1 0.0 - 2.0 % 10/04/2022 3:41 PM [facility] Neutrophils Absolute 10.26(H) 1.60 - 7.00 10? 3 /uL 10/04/2022 3:41 PM [facility] Lymphocyte Absolute 1.48 1.10 - 3.90 10? 3 /uL 10/04/2022 3:41 PM [facility] Monocytes Absolute 1.48(H) 0.26 - 1.07 10? 3 /uL 10/04/2022 3:41 PM [facility] Eosinophils Absolute 0.00 0.00 - 0.47 10? 3 /uL 10/04/2022 3:41 PM [facility] Basophils Absolute 0.01 0.00 - 0.08 10? 3 /uL 10/04/2022 3:41 PM [facility] Immature Granulocytes % 0.6 0.0 - 1.0 % 10/04/2022 3:41 PM [facility] Immature Granulocytes Absolute 0.08 10/04/2022 3:41 PM [facility] Blood BLOOD SPECIMEN / Unknown Venipuncture / Unknown 10/04/2022 3:34 PM CLOTH DESIZING RANGE OPERATOR CHIEF 10/04/2022 3:38 PM CLOTH DESIZING RANGE OPERATOR CHIEF Ori Davis MD LAB - HEMATOLOGY ORD ERABLES Performing Organization Address City/[facility]/ZIP Co de Phone Number [address] [address], [facility] [phone] * LIPASE BLOOD (10/04/2022 3:34 PM CLOTH DESIZING RANGE OPERATOR CHIEF) Lipase 12 8 - 78 U/L 10/04/2022 4:42 PM [facility] Comment:Lipase results from the [employer]ett Alinity analyzer may not be comparable with other methodologies. Blood BLOOD SPECIMEN / Unknown Venipuncture / Unknown 10/04/2022 3:34 PM CLOTH DESIZING RANGE OPERATOR CHIEF 10/04/2022 4:27 PM CLOTH DESIZING RANGE OPERATOR CHIEF Immanuel Fernandes MD LAB - CHEMISTRY SARAHI FIGUEROA Performing Organization Address [facility] Co de Phone Number [address] [address], [facility] [phone] * ALCOHOL ETHYL BLOOD (10/04/2022 3:34 PM CLOTH DESIZING RANGE OPERATOR CHIEF) Ethanol (mg/dL) <10 <10 mg/dL 4:05 PM [facility] Ethanol Calculated (g/dL) <0.010 <=0.010 g/dL 10/04/2022 4:05 PM [facility] Blood BLOOD SPECIMEN / Unknown Venipuncture / Unknown 10/04/2022 3:34 PM CLOTH DESIZING RANGE OPERATOR CHIEF 10/04/2022 3:38 PM CLOTH DESIZING RANGE OPERATOR CHIEF Narrative [facility] - 10/04/2022 4:05 PM CLOTH DESIZING RANGE OPERATOR CHIEF Ethanol Interp <10: None Detected. Depression of MANAGER ADOBE: >100 mg/dl Potentially Critical: >250 mg/dl Potentially [...] - CHEMISTRY ORDColin FIGUEROA Performing Organization Address [facility]/ZIP Co de Phone Number [facility] [address] [place] [address], [facility] [phone] * (ABNORMAL) IRON + TRANSFERRIN PANEL (10/04/2022 3:34 PM CLOTH DESIZING RANGE OPERATOR CHIEF) Iron 26(L) 50 - 175 ug/dL 10/04/2022 4:43 PM CLOTH DESIZING RANGE OPERATOR CHIEF [facility] Transferrin 210 174 - 382 mg/dL 10/04/2022 4:43 PM CLOTH DESIZING RANGE OPERATOR CHIEF [facility] Transferrin Saturation % 10(L) 16 - 50 % 10/04/2022 4:43 PM CLOTH DESIZING RANGE OPERATOR CHIEF [facility] TIBC Calculated 263 240 - 450 ug/dL 10/04/2022 4:43 PM CLOTH DESIZING RANGE OPERATOR CHIEF [facility] Blood BLOOD SPECIMEN / Unknown Venipuncture / Unknown 10/04/2022 3:34 PM CLOTH DESIZING RANGE OPERATOR CHIEF 10/04/2022 3:43 PM CLOTH DESIZING RANGE OPERATOR CHIEF Ori Davis MD LAB - CHEMISTRY SARAHI FIGUEROA Performing Organization Address [facility]/ZIP Co de Phone Number [facility] [address] [place] [address], [facility] [phone] Care Teams Printer Floor Covering Assistant Relationship Specialty Start Date End Date Fahad Desai MD PCP - General 11/25/16
--- OUTSIDE RECORDS SUMMARY | 2024-11-17 10:57 | XMS_ITS | Clinical Summary ---
Author Organization [facility] Address [address] [place] [address]. [place], [place] [id number] [place] [id number] Care Team Providers Care Principal Administrative Clerk Name Role Phone Unavailable Primary Care Provider [...] Comments Blood Pressure 132/72 11/21/2005 12:27 PM DISEASE AND INSECT CONTROL BOSS Pulse 60 11/21/2005 12:27 PM DISEASE AND INSECT CONTROL BOSS Temperature - - Respiratory Rate - - Oxygen Saturation - - Inhaled Oxygen Concentration - - Weight 91.6 kg (202 lb) 11/21/2005 12:27 PM DISEASE AND INSECT CONTROL BOSS Height 177.8 cm (5' 10 ) 11/21/2005 12:27 PM DISEASE AND INSECT CONTROL BOSS Body Mass Index 28.98 11/21/2005 12:27 PM DISEASE AND INSECT CONTROL BOSS Plan of Treatment Health Maintenance Due Date [...]
--- OUTSIDE RECORDS SUMMARY | 2024-11-17 10:57 | XMS_ITS | Referral Summary ---
Author Organization [facility] Address [address] [place] [address] Care Team Providers Care Pig Farm Manager Name Role Phone Fahad Desai MD Primary Care Provider [phone] Source Comments [facility],non-owned Affiliates and Associated Physician Practices is amultiple site organization consisting of ambulatory clinics and hospital sitesin [place], [place], [place] and [place]. This disclosure is being madepursuant to the Care Everywhere program and may not contain all information available regarding this patient. 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 [place] Anaphylaxis High 04/09/2019 [place] Bran Anaphylaxis High [...] 12 hours 10/09/2022 Active saline nasal spray ([place]; Baby [place]) 0.65 % nasal spray [place] 2 (two) sprays into each nostril every [...] Comments Blood Pressure 143/66 10/09/2022 8:57 AM WAX ENGRAVER Pulse 80 10/09/2022 11:47 AM WAX ENGRAVER Temperature 36.8 ??C (98.2 ??F) 10/09/2022 8:57 AM CS T Respiratory Rate 18 10/09/2022 11:47 AM WAX ENGRAVER Oxygen Saturation 100% 10/09/2022 11:47 AM WAX ENGRAVER Inhaled Oxygen Concentration - - Weight 83.9 kg (185 lb) 10/04/2022 3:20 PM WAX ENGRAVER Height 177.8 cm (5' 10 ) 10/04/2022 3:20 PM WAX ENGRAVER Body Mass Index 26.54 10/04/2022 3:20 PM WAX ENGRAVER Functional Status Functional Status Response Date of [...] 5:20 PM 10/09/2022 2:39 PM Care Teams Pig Farm Manager Relationship Specialty Start Date End Date Fahad Desai MD PCP - General 11/25/16
--- OUTSIDE RECORDS SUMMARY | 2024-11-17 10:57 | XMS_ITS | Clinical Summary ---
Author Organization [facility] Address [address] [place] [address] Care Team Providers Care Funeral Arranger Name Role Phone Fahad Desai MD Primary Care Provider [phone] Source Comments [facility],non-owned Affiliates and Associated Physician Practices is amultiple site organization consisting of ambulatory clinics and hospital sitesin [place], [place], [place] and [place]. This disclosure is being madepursuant to the Care Everywhere program and may not contain all information available regarding this patient. 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 [place] Anaphylaxis High 04/09/2019 Wheat Bran Anaphylaxis High [...] 12 hours 10/09/2022 Active saline nasal spray ([place]; Baby [place]) 0.65 % nasal spray [place] 2 (two) sprays into each nostril every [...] Comments Blood Pressure 143/66 10/09/2022 8:57 AM PLASTERER SPOT Pulse 80 10/09/2022 11:47 AM PLASTERER SPOT Temperature 36.8 ??C (98.2 ??F) 10/09/2022 8:57 AM CS T Respiratory Rate 18 10/09/2022 11:47 AM PLASTERER SPOT Oxygen Saturation 100% 10/09/2022 11:47 AM PLASTERER SPOT Inhaled Oxygen Concentration - - Weight 83.9 kg (185 lb) 10/04/2022 3:20 PM PLASTERER SPOT Height 177.8 cm (5' 10 ) 10/04/2022 3:20 PM PLASTERER SPOT Body Mass Index 26.54 10/04/2022 3:20 PM PLASTERER SPOT Plan of Treatment Health Maintenance Due Date [...] 5:20 PM 10/09/2022 2:39 PM Care Teams Funeral Arranger Relationship Specialty Start Date End Date Fahad Desai MD PCP - General 11/25/16
== END 2024-11-17 10:51 | disposition home or self-care (01) ==
LOC: CHSIMG 10:53
PROVIDERS: PCP Internal Medicine; Visit Provider Internal Medicine
DX: Z12.2 Encounter for screening for malignant neoplasm of respiratory organs (principal); Z87.891 Personal history of nicotine dependence
CPT/HCPCS: 71271

== ENCOUNTER 2025-10-15 16:09 | Outpatient (CLI) | payer MEDICARE, OTHER, SELFPAY ==
--- OUTSIDE RECORDS SUMMARY | 2025-03-01 07:30 | XMS_ITS ---
Author Organization [facility] Address [address] [place], [place] [id number] Care Team Providers Care Spool Maker Name Role Phone MARENDean DIOMEDES Unavailable [phone] Edmond Desai Unavailable Unavailable LA PHIPPS Unavailable [phone] REASON FOR VISIT *General care Vital Signs Height 70 in 03/01/2025 Weight 192 lbs 03/01/2025 BMI 27.55 kg/m2 03/01/2025 Height-cm 177.8 cm 03/01/2025 Weight-kg 87.09 kg 03/01/2025 Encounters Encounter Location Date Provider Diagnosis [address] [id number] 03/01/2025 LA PHIPPS Tinea unguium B35.1 ; Pain in right toe(s) M79.674 ; Pain in left toe(s) M79.675 ; 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, bilateral legs I70.213 and Type 2 diabetes mellitus with other circulatory complications E11.59 Assessments Encounter Date Diagnosis (ICD Code) Assessment Notes Treatment Notes Treatment Clinical Notes Section Notes 03/01/2025 Tinea unguium (ICD-10 - B35.1) NAIL DEBRIDEMENT: Nails 1-5 Bilateral were debrided extensively with nail nippers and emery board, reducing length and girth to pink healthy tissue with any subungual debris and necrotic tissue removed 03/01/2025 Pain in right toe(s) (ICD-10 - M79.674) 03/01/2025 Pain in left toe(s) (ICD-10 - M79.675) 03/01/2025 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 The patient was instructed to check his feet daily to report any problems or signs of infection immediately. Plan Of Treatment Treatment Notes Assessment Notes Tinea unguium NAIL DEBRIDEMENT: Na ils 1-5 Bilateral were debrided extensively with nail nippers and emery board, reducing length and girth to pink healthy tissue with any subungual debris and necrotic tissue removed Type 2 diabetes mellitus wit h other circulatory complications Diabetic Foot Care: The patient was educated on diabetes and the lower extremity. The patient was instructed to check his feet daily to report any problems or signs of infection immediately. Next Appt Details Follow Up: 10 - 12 weeks, Re ason: At-Risk Foot care, sooner if problems develop. Provider Name:LA WHEATLEY, 11/08/2025 01:20:00 PM, [address] [place] [address], [id number], History and Physical Notes * HPI (History [...] thinners., Date last seen by Dr. Desai was10/2024., Initials mca Examination Category Sub-Category Detail Notes Category Not es Dermatologic Skin findings: Skin is thin, at rophic and lacking pedal hair Nail pathology: Nails 1, 2, 3, 4, an d 5 bilateral are elongated, thick, discolored, and dystrophic with subungual debris. They are painful to palpation Neurologic Gross sensation Grossly intact t o light touch. There is negative Tinel's sign Vascular Dorsalis pedis pulse: 1/4 bilateral Edema: No edema bilateral n oted tortuous varicosities bilat L>R nonpainful. Capillary refill: greater than 3 secon ds Posterior tibial pulse: 0/4 bilateral Physical Examination General appearance: Alert, pleasant, well-nourished and in no acute distress Musculoskeletal Muscle Strength Muscle strength is 5/5 in regards to dorsiflexion, plantarflexion, inversion, and eversion in bilateral lower extremities Progress Notes * Donato SERRANODOB:1950 ( 75 yo M)Acc No.[id number]:03/01/2025 Patient: Donato Luna Provider: Lewis PHIPPS :1950 A ge:75 Y S ex:Male Date:03/01/2025 Address:[address] [place] [address], [facility], [id number] Subjective: * Chief Complaints: * * General care * HPI: H PI: General care P atient presents to the office for at risk foot care. Patient states that their nails are thickened, elongated and painful. Patient states that it is aggravated by shoe gear. Onset is gradual. Patient denies being diabetic., Patient denies taking blood thinners., Date last seen by Dr. Desai was10/2024., Initials [facility]. * ROS: G eneral / Constitutional: Patient denies w eakness. M usculoskeletal: Patient complains of h ammertoes. P eripheral Vascular: Patient denies b lanching of skin, cold extremities, decreased sensation in extremities. S kin: Patient complains of f ungal nails, nail changes. ? N eurologic: Patient denies d izziness, gait abnormality, headache. * Medications: N one Objective: * Vitals: S hoe Size: 9.5, Wt:192lbs, Wt-k.09 kg, Ht: 70 in, Ht-cm: 177.8 cm, BMI:27.55Index, Body Surface Area: 2.07. * Examination: P hysical Examination: General appearance: A lert, pleasant, well-nourished and in no acute distress. D ermatologic: Skin findings: S kin is thin, atrophic and lacking pedal hair. Nail pathology: N ails 1, 2, 3, 4, and 5 bilateral are elongated, thick, discolored, and dystrophic with subungual debris. They are painful to palpation. ? V ascular: Dorsalis pedis pulse: 1 /4 b ilateral. Posterior tibial pulse: 0 /4 bilateral. Capillary refill: g reater than 3 seconds. Edema: N o edema bilateral noted tortuous varicosities bilat L>R nonpainful. . N eurologic: Gross sensation G rossly intact to light touch. There is negative Tinel's sign. M usculoskeletal: Muscle Strength M uscle strength is 5/5 in regards to dorsiflexion, plantarflexion, inversion, and eversion in bilateral lower extremities. ? Assessment: * Assessment: 1. T inea unguium - B35.1 (Primary) 2 . P ain in right toe(s) - M79.674? 3. P ain in left toe(s) - M79.675 4 . A therosclerosis of three affiliated arteries of extremities with intermittent claudication, bilateral legs - I70.213 5 . T ype 2 diabetes mellitus with other circulatory complications - E11.59 Plan: * Treatment: 2. T ype 2 diabetes mellitus with other circulatory complications Notes: Diabetic Foot Care: The patient was educated on diabetes and the lower extremity. The patient was instructed to check his feet daily to report any problems or signs of infection immediately.? * Immunizations: Immunization record has been reviewed and updated. * Procedure Codes: 1 1721 DEBRIDE NAIL, 6 OR MORE, Modifiers: Q8 * Follow Up: 1 0 - 12 weeks (Reason: At-Risk Foot care, sooner if problems develop.) Billing Information: * Procedure Codes: 61155 DEBRIDE NAIL, 6 OR MORE. Modifiers: Q8 * Electronic signature of CATARINA PHIPPS DPM on 10/15/2025 at 04:13 PM BUILDING COORDINATOR Sign off status: Pending * Provider: Lewis PHIPPS Date: 0 03/01/2025 Generated for Martin doyle/Shirley/Santoitting on: 1 04:13 PM BUILDING COORDINATOR
--- OUTSIDE RECORDS SUMMARY | 2025-06-14 08:50 | XMS_ITS ---
Author Organization [facility] Address [address] [place], [place] [id number] Care Team Providers Care Director Of Corporate Real Estate Name Role Phone JUDE DIOMEDES Unavailable [phone] Edmond Desai Unavailable Unavailable LA PHIPPS Unavailable [phone] Allergies No Known Allergies REASON FOR VISIT *General care Vital Signs Height 70 in 06/14/2025 Weight 192 lbs 06/14/2025 BMI 27.55 kg/m2 06/14/2025 Height-cm 177.8 cm 06/14/2025 Weight-kg 87.09 kg 06/14/2025 Encounters Encounter Location Date Provider Diagnosis [address] [id number] 06/14/2025 LA PHIPPS Tinea unguium B35.1 ; Pain in right toe(s) M79.674 ; Pain in left toe(s) M79.675 ; Atherosclerosis of [place] arteries of extremities with intermittent claudication, bilateral legs I70.213 and Type 2 diabetes mellitus with other circulatory complications E11.59 Assessments Encounter Date Diagnosis (ICD Code) Assessment Notes Treatment Notes Treatment Clinical Notes Section Notes 06/14/2025 Tinea unguium (ICD-10 - B35.1) NAIL DEBRIDEMENT: Nails 1-5 Bilateral were debrided extensively with nail nippers and emery board, reducing length and girth to pink healthy tissue with any subungual debris and necrotic tissue removed 06/14/2025 Pain in right toe(s) (ICD-10 - M79.674) 06/14/2025 Pain in left toe(s) (ICD-10 - M79.675) 06/14/2025 Atherosclerosis of [place] arteries of extremities with intermittent claudication, bilateral legs (ICD-10 - I70.213) 06/14/2025 Type 2 diabetes mellitus with other circulatory [...] develop. Provider Name:LA WHEATLEY, 11/08/2025 01:20:00 PM, [address] [place] [address], [id number], History and Physical Notes * HPI (History [...] Date last seen by Dr. Desai was 04/2025., Initials nd Examination Category Sub-Category Detail Notes Category Not [...] bilateral lower extremities Progress Notes * Donato SERRNAODOB:1950 ( 75 yo M)Acc No.[id number]:06/14/2025 Patient: Donato Luna Provider: Lewis PHIPPS :1950 A ge:75 Y S ex:Male Date:06/14/2025 Address:[address] [place], [place] [id number] Subjective: * Chief Complaints: * * General [...] Date last seen by Dr. Desai was 04/2025., Initials nd. * ROS: G eneral / Constitutional: Patient denies w eakness. M usculoskeletal: Patient complains of h ammertoes. P eripheral Vascular: Patient denies b lanching of skin, cold extremities, decreased sensation in extremities. S kin: Patient complains of f ungal nails, nail changes. ? N eurologic: Patient denies d izziness, gait abnormality, headache. * Medical History: Denies Past Medical History No Medical History Documented Medical History Verified * Surgical History: Denies Past Surgical History. Surgical History verified. * Hospitalization/Major Diagno stic Procedure: Denies Past Hospitalization. Hospitalization Verified. * Family History: N o Family History documented.. F amily History Verified.. * Social History: Social History Verified. No Social History documented. * Medications: N one * Allergies: N .K.D.A.yesAllergies Verified. Objective: * Vitals: S hoe Size: 9.5, [...] - M79.675 4 . A therosclerosis of [place] arteries of extremities with intermittent claudication, bilateral [...] problems or signs of infection immediately.? * Procedure Codes: 1 1721 DEBRIDE NAIL, 6 OR MORE, Modifiers: Q8 * Follow Up: 1 0 - 12 weeks (Reason: At-Risk Foot care, sooner if problems develop.) Billing Information: * Procedure Codes: 28071 DEBRIDE NAIL, 6 OR MORE. Modifiers: Q8 * Electronic signature of CATARINA PHIPPS DPM on 10/15/2025 at 04:12 PM IRRADIATED FUEL HANDLER Sign off status: Pending * Provider: Lewis PHIPPS Date: 0 06/14/2025 Generated for Martin doyle/Shirley/Santoitting on: 1 04:12 PM IRRADIATED FUEL HANDLER
--- OUTSIDE RECORDS SUMMARY | 2025-08-16 08:40 | XMS_ITS ---
Author Organization [facility] Address [address] [place], [place] [id number] Care Team Providers Care Research Tech Name Role Phone JDUE DIOMEDES Unavailable [phone] Edmond Desai Unavailable Unavailable LA PHIPPS Unavailable [phone] Allergies No Known Allergies REASON FOR VISIT *General care Vital Signs Height 70 in 08/16/2025 Weight 192 lbs 08/16/2025 BMI 27.55 kg/m2 08/16/2025 Height-cm 177.8 cm 08/16/2025 Weight-kg 87.09 kg 08/16/2025 Encounters Encounter Location Date Provider Diagnosis [address] [id number] 08/16/2025 LA PHIPPS Tinea unguium B35.1 ; Pain in right toe(s) M79.674 ; Pain in left toe(s) M79.675 ; Atherosclerosis of [place] arteries of extremities with intermittent claudication, bilateral legs I70.213 and Type 2 diabetes mellitus with other circulatory complications E11.59 Assessments Encounter Date Diagnosis (ICD Code) Assessment Notes Treatment Notes Treatment Clinical Notes Section Notes 08/16/2025 Tinea unguium (ICD-10 - B35.1) NAIL DEBRIDEMENT: Nails 1-5 Bilateral were debrided extensively with nail nippers and emery board, reducing length and girth to pink healthy tissue with any subungual debris and necrotic tissue removed 08/16/2025 Pain in right toe(s) (ICD-10 - M79.674) 08/16/2025 Pain in left toe(s) (ICD-10 - M79.675) 08/16/2025 Atherosclerosis of [place] arteries of extremities with intermittent claudication, bilateral legs (ICD-10 - I70.213) Patient educated on risks and aggravating factors of PVD, including conservative treatment options such as a diet and exercise regimen to aid in slowing progression of vascular disease. Check and protect LE bilateral daily. Call if any changes or concerns. 08/16/2025 Type 2 diabetes mellitus with other circulatory [...] any subungual debris and necrotic tissue removed Atherosclerosis of [place] ar teries of extremities with intermittent claudication, bilateral legs Patient educated on risks and aggravatin g factors of PVD, including conservative treatment options such as a diet and exercise regimen to aid in slowing progression of vascular disease. Check and protect LE bilateral daily. Call if any changes or concerns. Type 2 diabetes mellitus wit h other [...] develop. Provider Name:LA WHEATLEY, 11/08/2025 01:20:00 PM, [address] [place] [address], [id number], History and Physical Notes * HPI (History [...] Date last seen by Dr. Desai was 06/2025., Initials nd Examination Category Sub-Category Detail Notes [...] * Donato SERRANODOB:1950 ( 75 yo M)Acc No.[id number]:08/16/2025 Patient: Donato Luna Provider: Lewis PHIPPS :1950 A ge:75 Y S ex:Male Date:08/16/2025 Address:[address] [place], [place] [id number] Subjective: * Chief Complaints: * * General [...] Date last seen by Dr. Desai was 06/2025., Initials nd. * ROS: G eneral / [...] * Medications: N one * Allergies: N .K.D.AFayeyesAllergies Verified. Objective: * Vitals: S hoe Size: [...] - M79.675 4 . A therosclerosis of [place] arteries of extremities with intermittent claudication, bilateral legs - I70.213 5 . T ype 2 diabetes mellitus with other circulatory complications - E11.59 Plan: * Treatment: 2. A therosclerosis of [place] arteries of extremities with intermittent claudication, bilateral legs Notes: Patient educated on risks and aggravating factors of PVD, including conservative treatment options such as a diet and exercise regimen to aid in slowing progression of vascular disease. Check and protect LE bilateral daily. Call if any changes or concerns. 3. T ype 2 diabetes mellitus with other [...] problems develop.) Billing Information: * Procedure Codes: 32676 DEBRIDE NAIL, 6 OR MORE. Modifiers: Q8 * Electronic signature of CATARINA PHIPPS DPM on 10/15/2025 at 04:12 PM CONSOLIDATOR Sign off status: Pending * Provider: Lewsi PHIPPS Date: 1 Generated for Martin doyle/Shirley/Alfie on: 04:12 PM CONSOLIDATOR
--- NOTE | ~2025-10-15 | XR_ITS ---
XR chest 2V HOSTORY: CHF COMPARISON:[ 05/26/2015 FINDINGS: Frontal and lateral views of the chest were obtained. No focal consolidation, pleural effusions or pneumothorax. The heart size is normal in size. Pulmonary vasculature is unremarkable. Osseous structures are intact. IMPRESSION: No acute lung findings.] [ ] Reviewed, dictated and finalized at location S. INALIST TECHNICIAN
--- OUTSIDE RECORDS SUMMARY | 2025-10-15 16:13 | XMS_ITS | Patient Health Record ---
Author Organization [facility] Address [address] [place] [address] Care Team Providers Care Nursing Specialist Name Role Phone Lloyd CAUSEY, Fahad Primary Care Provider Leyda KIM MD, AZALEA Unavailable [phone] Allergies Allergen (clinical drug ingredient) Drug/Non Drug Allergy documented on EMR Reaction Allergy Type Onset Date Status codeine Codeine Sulfate Unknown Drug Allergy A ctive Darvon Unknown Drug Allergy Active meperidine Demerol tachycardia Drug Allergy Acti ve Flexeril Unknown Drug Allergy Active Keflex Unknown Drug Allergy Active Percodan Unknown Drug Allergy Active Reason For Referral No Information Medications Medication SIG (Take, Route, Frequency, Duration) Notes Start Date End Date Status Pantoprazole Sodium 40 MG 1 tablet Orally Once a day Active traMADol HCl 50 MG 1 tablet as needed O rally Once a day TID Active Social History Tobacco Use: Social History Observation Description Date Details (start date - stop date) Current Smoker NA - NA Tobacco Use/Smoking Question Answer Notes Are you a current smoker How often do you smoke cigarettes? every day How many cigarettes a day do you smoke? 11-20 Are you interested in quitting? 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 confirmed Problem Disorder of biliary tract (533713306) Disease of biliary tract, unspecified (K83.9) Active confirmed Plan Of Treatment Pending Test Test Name Order Date Endoscopic Retrograde Cholangiopancreato graphy (ERCP) 06/13/2019 Endoscopic Retrograde Cholangiopancreato graphy (ERCP) 07/28/2019 Insurance Providers Payer Name Payer Address Payer Phone Subscriber Number Group Number Insured Name Patient Relationship to Insured Coverage Start Date Coverage End Date [place] [address] [address] [place], [place] [id number] Donato Serrano Self - patient is the insured [employer] [place] Medicare Supplement [address] [place] [id number] Donato Serrano Self - patient is the insured Medical (General) History Medical History History ICD Code Arthritis Recurrent acute pancreatitis Hx CBD stones 2016 Hx gangrenous cholecystitis, cholelithia sis 2017 Mulitple food allergies/intolerances Surgical History Surgery Date(Month/Year) 11/20/16 obstructive jaundic e, s/p lap cholecystectomy with gangrenous cholecystitis r/t cholelithiasis and obstructive jaundice r/t CBD stones ERCP 12/22/16 Dr. Lara wit h multiple stones removed from the bile duct s/p sphincterotomy ERCP Susu 01/27/17 steno sis of the previous biliary sphinterotomy with deviation of the biliary outlet. Biliary sphincterotomy extension and extraction of sludge material Biliary stenting performed. Migratory PD stenting performed. Bile duct stent and few residual stone fragments removed 02/19/17 Susu
--- OUTSIDE RECORDS SUMMARY | 2025-10-15 16:13 | XMS_ITS | Clinical Summary ---
Author Organization [facility] Address [address] [place] [address] Care Team Providers Care Redrawer Name Role Phone Fahad Desai MD Primary Care Provider [phone] Allergies Active Allergy Reactions Criticality Noted Date Comments Albumin Human Anaphylaxis High 10/05/2022 Felipe Flavoring Agent (Non-Screening) Anaphylaxis High 04/09/2019 Banana Anaphylaxis High 10/05/2022 Cantaloupe (Diagnostic) Anaphylaxis High 04/09/2019 Celery Oil Anaphylaxis High 10/05/2022 Cephalexin Itching Low 10/05/2022 Cheese Unknown 01/02/2025 Chicken Allergy Anaphylaxis High 10/05/2022 Codeine Unknown 03/27/2016 Cyclobenzaprine Unknown 03/27/2016 Echinacea Anaphylaxis High 04/09/2019 Eggs Unknown 01/02/2025 Fish Allergy Anaphylaxis High 04/09/2019 Fish Oil Anaphylaxis High 10/05/2022 Food Anaphylaxis High 04/09/2019 Garlic Anaphylaxis High 10/05/2022 Iodinated Contrast Media Anaphylaxis,Itching High Butter, margarine, hickory flavoring, paw paw, root beer, Meperidine Other (see comment) High 03/27/2016 tachycardia Metaxalone Unknown 10/05/2022 Milk (Cow) Unknown 03/27/2016 Nuts Unknown 03/27/2016 Oxycodone-Aspirin Itching Medium 01/07/2017 Poultry Meal Anaphylaxis High 04/09/2019 Propoxyphene Itching,Other (see comment) Low 03/27/2016 Ringing in ears Wheat Anaphylaxis High 10/05/2022 Yeast (Saccharomyces Cerevisiae) Anaphylaxis High 10/05/2022 Medications amLODIPine (NORVASC) 5 MG tablet Take 1 tablet (5 mg total) by mouth daily. Active latanoprost (XALATAN) 0.005 % ophthalmic solution 1 drop nightly at bedtime. Active metoprolol tartrate (LOPRESSOR) 25 MG tablet Take 0.5 tablets (12.5 mg total) by mouth daily. 12.5 po in am, 12.5mg po in the evening Active tamsulosin (FLOMAX) 0.4 MG Cap Take 1 capsule (0.4 mg total) by mouth daily. Active losartan (COZAAR) 100 MG tablet Take 1 tablet (100 mg total) by mouth daily. 10/20/2024 Active Active Problems No known active problems Social History Tobacco Use Types Packs/Day Years Used Date Smoking Tobacco: Never Smokeless Tobacco: Never Tobacco Cessation:Counseling Given: Not Answered Alcohol Use Standard Drinks/Week Comments Never 0 (1 standard drink = 0.6 oz pur e alcohol) Sex and Gender Information Value Date Recorded Sex Assigned at Male 2025 12:25 PM CDT Legal Sex Male 10:27 PM CDT Gender Identity Not on file Sexual Orientation Not on file Last Filed Vital Signs Vital Sign Reading Time Taken Comments Blood Pressure 136/59 01/31/2025 2:15 PM CDT Pulse 58 01/31/2025 2:15 PM CDT Temperature 36.3 C (97.3 F) 01/31/2025 2:15 PM CDT Respiratory Rate 16 01/31/2025 2:15 PM CDT Oxygen Saturation 100% 01/31/2025 2:15 PM CDT Inhaled Oxygen Concentration - - Weight 90.7 kg (200 lb) 01/25/2025 1:21 PM CDT Height 177.8 cm (5' 10) 01/25/2025 1:21 PM CDT Body Mass Index 28.7 01/25/2025 1:21 PM CDT Plan of Treatment Health Maintenance Due Date Last Done Comments Colorectal Cancer Screening Colonoscopy (10 Years) 1950 Hepatitis C 1969 DTaP, Tdap and Td Vaccines ( 1 - Tdap) 1970 Zoster Vaccines (1 of 2) 2001 Annual Medicare Wellness Visit 01/04/2016 Meningococcal B Vaccine (3 o f 4 - Increased Risk Bexsero 3-dose series) 12/26/2023 12/25/2022, 10/30/2022 COVID-19 Vaccine (1 - 2024-2 6 season) 2025 Influenza Adult (#1) 2025 RSV Immunization or 60+ Years (1 - 1-dose 75+ series) 2026 Meningococcal Vaccine (3 - Risk 2-dose series) 12/26/2027 12/25/2022, 10/30/2022 Pneumococcal Vaccine: 50+ Years Completed 12/25/2022, 10/30/2022 Hepatitis A Vaccines Aged Out No long er eligible based on patient's age to complete this topic RSV Immunizations Under 20 Months Aged Out No longer eligible b ased on patient's age to complete this topic Medical Devices Implanted Type Area Ruby Developer Device Identifier Shelf Expiration Date Model / Serial / Lot Iol Tecnis Simplicity Dcb00 - [id number] Implanted:Qty: 1 on 2025 by Brittani Peres MD at [facility] Lens Left: Eye [employer] [id number] 05/03/2026 DCB00 / [id number] / [id number] Iol [employer] Simplicity Dcb00 - [id number] Implanted:Qty: 1 on 01/31/2025 by Brittani Peres MD at [facility] Lens Right: Eye [employer] [id number] 05/24/2026 DCB00 / [id number] / [id number] Additional Health Concerns Infection Onset Date 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
--- OUTSIDE RECORDS SUMMARY | 2025-10-15 16:13 | XMS_ITS | Clinical Summary ---
Author Organization [facility] Address [address] [place] [address] Care Team Providers Care Mine Foreman Name Role Phone Fahad Desai MD Primary Care Provider [phone] Source Comments [facility],non-owned Affiliates and Associated Physician Practices is amultiple site organization consisting of ambulatory clinics and hospital sitesin [place], [place], [place] and [place]. This disclosure is being madepursuant to the Care Everywhere program and may not contain all information available regarding this patient. 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 Alwaysverify current medications with the patient. acetaminophen (TYLENOL) 500 MG tablet Take 2 (two) tablets by mouth 3 times daily Maximum allowable Acetaminophen amount = 4 Grams (4000 mg) / 24 hours. 2 Active albuterol-ipra tropium (Duo-Neb) 0.5-2.5 (3) MG/3ML nebulizer solution Inhale 3 mL by mouth every 6 hours as needed for Shortness of Breath or Wheezing 2 Active gabapentin (Neurontin) 100 MG capsule Take 1 (one) capsule by mouth 3 times daily 2 Active atorvastatin (Lipitor) 20 MG tablet Take 1 (one) tablet by mouth at bedtime 2 Active metoprolol tartrate IR (Lopressor) 25 MG tablet Take 1 (one) tablet by mouth 2 times daily 2 Active guaiFENesin ER 12hr (Mucinex) 600 MG tablet Take 1 (one) tablet by mouth every 12 hours 2 Active saline nasal spray ([place]; Baby [place]) 0.65 % nasal spray [place] 2 (two) sprays into each nostril every 30 minutes as needed for Dry Nose 2 Active lidocaine (Lidoderm) 5 % patch Apply 2 (two) patches to skin every 24 hours Apply patch to most painful area and remove after 12 hours. May reapply a new patch 12 hours later. 2 Active ferrous sulfate 325 (65 FE) MG tablet Take 1 (one) tablet by mouth every 2 days 2 Active melatonin 3 MG tablet Take 1 (one) tablet by mouth at bedtime 2 Active multivitamin daily tablet Take 1 (one) tablet by mouth once daily 2 Active artificial tears ophthalmic solution Instill 1 (one) drop into both eyes every 4 hours as needed 2 Active pantoprazole EC (Protonix) 40 MG tablet Take 1 (one) tablet by mouth once daily 2 Active polyethylene glycol 3350 (Miralax) 17 g packet Take 17 (seventeen) g by mouth once daily as needed for Constipation 2 Active Active Problems Problem Noted Date Diagnosed [...] at Not on file Legal 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 Gender Identity Not on file Sexual Orientation Not on file Last Filed Vital Signs Vital Sign Reading Time Taken Comments Blood Pressure 143/66 10/09/2022 8:57 AM SPEECH PATHOLOGY TEACHER Pulse 80 10/09/2022 11:47 AM SPEECH PATHOLOGY TEACHER Temperature 36.8 C (98.2 F) 10/09/2022 8:57 AM SPEECH PATHOLOGY TEACHER Respiratory Rate 18 10/09/2022 11:47 AM SPEECH PATHOLOGY TEACHER Oxygen Saturation 100% 10/09/2022 11:47 AM SPEECH PATHOLOGY TEACHER Inhaled Oxygen Concentration - - Weight 83.9 kg (185 lb) 10/04/2022 3:20 PM SPEECH PATHOLOGY TEACHER Height 177.8 cm (5' 10) 10/04/2022 3:20 PM SPEECH PATHOLOGY TEACHER Body Mass Index 26.54 10/04/2022 3:20 PM SPEECH PATHOLOGY TEACHER Plan of Treatment Health Maintenance Due Date Last Done Comments COLON MONITORING 1950 COLONOSCOPY - COLON CA SCREENING 1950 CT COLONOGRAPHY - COLON CA SCREENING 1950 FIT - COLON CA SCREENING 1950 FLEX SIG - COLON CA SCREENING 1950 MEDICARE AWV 12 MONTHS 1950 HEPATITIS C SCREENING 12/29/1968 DTAP/TDAP/TD VACCINES (1 - Tdap) 1970 PNEUMOCOCCAL VACCINE 50+ (1 of 2 - PCV) 1970 Respiratory Syncytial Virus (RSV) Vaccine Pt: or over 60 yrs (1 - Risk 50-74 years 1-dose series) 2001 ZOSTER VACCINE (1 of 2) 2001 AAA SCREENING 01/04/2016 COLOGUARD (AGES 45-75) - COL ON CA SCREENING 06/12/2022 06/12/2019 Colorectal Cancer Screening 06/12/2022 DEPRESSION SCREENING 10/18/2024 COVID-19 VACCINE (1 - 2024-2 6 season) 2025 INFLUENZA VACCINE (#1) 2025 HEPATITIS B VACCINE Aged Out No longe r eligible based on patient's age to complete this topic HIB VACCINE Aged Out No longer eligi ble based on patient's age to complete this topic HPV VACCINE Aged Out No longer eligi ble based on patient's age to complete this topic MENINGOCOCCAL (Group B) VACC INE SHARED DECISION-MAKING Aged Out No longer eligibl e based on patient's age to complete this topic MENINGOCOCCAL GROUPS A/C/Y/W VACCINE Aged Out No longer eligible b ased on patient's age to complete this topic Insurance MEDICARE [employer] [place] MEDICARE [facility] Advance Directives * Full Code (Latest Code Status on File) Date Activated Date Inactivated Comments 10/04/2022 5:20 PM 10/09/2022 2:39 PM Care Teams Mine Foreman Relationship Specialty Start Date End Date Fahad Desai MD PCP - General 11/25/16
--- OUTSIDE RECORDS SUMMARY | 2025-10-15 16:13 | XMS_ITS | Patient Health Record ---
Author Organization [facility] Address [address] [place], [place] [id number] Care Team Providers Care Speech And Hearing Director Name Role Phone DIOMEDES AVILEZ Unavailable [phone] Edmond Desai Unavailable Unavailable LA PHIPPS Unavailable [phone] Allergies No Known Allergies Reason For Referral No Information Vital Signs Height-cm 177.8 cm 08/16/2025 Weight-kg 87.09 kg 08/16/2025 Height 70 in 08/16/2025 Weight 192 lbs 08/16/2025 BMI 27.55 kg/m2 08/16/2025 Encounters Encounter Location Date Provider Diagnosis [address] [id number] 03/01/2025 [facility] PHIPPS Tinea unguium B35.1 ; Pain in right toe(s) M79.674 ; Pain in left toe(s) M79.675 ; Atherosclerosis of [place] arteries of extremities with intermittent claudication, bilateral legs I70.213 and Type 2 diabetes mellitus with other circulatory complications E11.[address] [id number] 06/14/2025 [facility] PHIPPS Tinea unguium B35.1 ; Pain in right toe(s) M79.674 ; Pain in left toe(s) M79.675 ; Atherosclerosis of [place] arteries of extremities with intermittent claudication, bilateral legs I70.213 and Type 2 diabetes mellitus with other circulatory complications E11.[address] [id number] 08/16/2025 LA PHIPPS Tinea unguium B35.1 ; Pain in right toe(s) M79.674 ; Pain in left toe(s) M79.675 ; Atherosclerosis of [place] arteries of extremities with intermittent claudication, bilateral legs I70.213 and Type 2 diabetes mellitus with other circulatory complications E11.[address] [id number] 12/07/2024 DIOMEDES AVILEZ Tinea unguium B35.1 ; Pain in right toe(s) M79.674 ; Pain in left toe(s) M79.675 ; Atherosclerosis of [place] arteries of extremities with intermittent claudication, bilateral legs I70.213 and Type 2 diabetes mellitus with other circulatory complications E11.59 Assessments Encounter Date Diagnosis (ICD Code) Assessment Notes Treatment Notes Treatment Clinical Notes Section Notes 12/07/2024 Tinea unguium (ICD-10 - B35.1) NAIL DEBRIDEMENT: Nails 1-5 Bilateral were debrided extensively with nail nippers and emery board, reducing length and girth to pink healthy tissue with any subungual debris and necrotic tissue removed 03/01/2025 Tinea unguium (ICD-10 - B35.1) NAIL DEBRIDEMENT: Nails 1-5 Bilateral were debrided extensively with nail nippers and emery board, reducing length and girth to pink healthy tissue with any subungual debris and necrotic tissue removed 06/14/2025 Tinea unguium (ICD-10 - B35.1) NAIL DEBRIDEMENT: Nails 1-5 Bilateral were debrided extensively with nail nippers and emery board, reducing length and girth to pink healthy tissue with any subungual debris and necrotic tissue removed 08/16/2025 Tinea unguium (ICD-10 - B35.1) NAIL DEBRIDEMENT: Nails 1-5 Bilateral were debrided extensively with nail nippers and emery board, reducing length and girth to pink healthy tissue with any subungual debris and necrotic tissue removed 06/14/2025 Pain in right toe(s) (ICD-10 - M79.674) 12/07/2024 Pain in right toe(s) (ICD-10 - M79.674) 03/01/2025 Pain in right toe(s) (ICD-10 - M79.674) 08/16/2025 Pain in right toe(s) (ICD-10 - M79.674) 08/16/2025 Pain in left toe(s) (ICD-10 - M79.675) 03/01/2025 Pain in left toe(s) (ICD-10 - M79.675) 12/07/2024 Pain in left toe(s) (ICD-10 - M79.675) 06/14/2025 Pain in left toe(s) (ICD-10 - M79.675) 06/14/2025 Atherosclerosis of [place] arteries of extremities with intermittent claudication, bilateral legs (ICD-10 - I70.213) 08/16/2025 Atherosclerosis of [place] arteries of extremities with intermittent claudication, bilateral legs (ICD-10 - I70.213) Patient educated on risks and aggravating factors of PVD, including conservative treatment options such as a diet and exercise regimen to aid in slowing progression of vascular disease. Check and protect LE bilateral daily. Call if any changes or concerns. 12/07/2024 Atherosclerosis of [place] arteries of extremities with intermittent claudication, bilateral legs (ICD-10 - I70.213) 03/01/2025 Atherosclerosis of [place] arteries of extremities with intermittent claudication, bilateral legs (ICD-10 - I70.213) 12/07/2024 Type 2 diabetes mellitus with other circulatory complications (ICD-10 - E11.59) Diabetic Foot Care: The patient was educated on diabetes and the lower extremity. The patient was instructed to check his feet daily to report any problems or signs of infection immediately. The patient was provided written information on Diabetic Foot Care as well as the Amputation Prevention Guide. 03/01/2025 Type 2 diabetes mellitus with other circulatory complications (ICD-10 - E11.59) Diabetic Foot Care: The patient was educated on diabetes and the lower extremity. The patient was instructed to check his feet daily to report any problems or signs of infection immediately. 08/16/2025 Type 2 diabetes mellitus with other circulatory complications (ICD-10 - E11.59) Diabetic Foot Care: The patient was educated on diabetes and the lower extremity. The patient was instructed to check his feet daily to report any problems or signs of infection immediately. 06/14/2025 Type 2 diabetes mellitus with other circulatory complications (ICD-10 - E11.59) Diabetic Foot Care: The patient was educated on diabetes and the lower extremity. The patient was instructed to check his feet daily to report any problems or signs of infection immediately. Plan Of Treatment Next Appt Details Provider Name:LA WHEATLEY, 11/08/2025 01:20:00 PM, [address] [place] [address], [place], [place], [id number], Insurance Providers Payer Name Payer Address Payer Phone Subscriber Number Group Number Insured Name Patient Relationship to Insured Coverage Start Date Coverage End Date Medicare Part [place] [address] [place] [address] [id number] Donato Serrano Self - patient is the insured [employer] [address] [place] [id number] Donato Serrano Self - patient is the insured
[2025-10-15 16:40] LABS: Hematocrit 40.1 % (37.0-46.0); Hemoglobin 13.1 g/dL (12.4-15.3); Mean Corpuscular HGB Conc 32.7 g/dL (32-36); Mean Corpuscular Hemoglobin 31.9 pg (27.0-31.0); Mean Corpuscular Volume 97.6 fL (78.0-102.0); Platelet Count Result 295 K/mm3 (150-420); Red Blood Count 4.11 M/mm3 (4.70-6.10); White Blood Count 8.9 K/mm3 (4.8-10.8)
[2025-10-15 16:42] LABS: Add Urine Microscopic? NO; Appearance Urine Clear (Clear); Glucose Urine UA Negative (Negative); Leukocyte Esterase Ur Negative (Negative); Nitrate Urine Negative (Negative); Specific Grav Ur 1.015 (1.010-1.020)
[2025-10-15 17:12] LABS: Alanine Aminotransferase 15 U/L (6-50); Albumin Level 4.7 g/dL (3.5-5.1); Alkaline Phosphatase 63 U/L (38-126); Anion Gap 12 mmol/L (4-12); Aspartate Amino Transferase 27 U/L (17-59); Bilirubin,Total 0.5 mg/dL (0.2-1.3); Blood Urea Nitrogen 26 mg/dL (9-20); Calcium 10.0 mg/dL (8.4-10.2); Carbon Dioxide 25 mmol/L (22-30); Chloride 110 mmol/L (98-107); Estimated Glomerular Filt Rate > 60; Glucose 104 mg/dL (65-110); Osmolality Calculated 308 mOsm/kg (285-295); Potassium 4.6 mmol/L (3.4-5.0); Sodium 147 mmol/L (137-145); Total Protein 7.3 g/dL (6.3-8.2)
[2025-10-15 17:22] LABS: NT Pro B Type Natriuretic Pept 797 pg/mL (19.9-100)
[2025-10-15 17:30] LABS: Free T3 3.43 pg/mL (2.18-3.98); Free T4 Free Thyroxine 1.22 ng/dL (0.78-2.19)
[2025-10-15 17:43] LABS: Thyroid Stimulating Hormone 2.020 uIU/mL (0.465-4.680)
== END 2025-10-15 16:10 | disposition home or self-care (01) ==
LOC: CHSLAB 16:11 → CHSIMG 16:12
PROVIDERS: PCP Internal Medicine; Visit Provider Internal Medicine
DX: I50.9 Heart failure, unspecified (principal); M79.89 Other specified soft tissue disorders; I49.3 Ventricular premature depolarization; I11.0 Hypertensive heart disease with heart failure
CPT/HCPCS: 36415; 71046; 80053; 81003; 83880; 84439; 84443; 84481; 85027; 85380